=== PATIENT | female | born 1945 | race Caucasian/White ===

== ENCOUNTER → 2017-03-20 | Outpatient (CLI) | payer MEDICARE | LOC: M WHC 10:42 | DX: Z12.31 Encounter for screening mammogram for malignant neoplasm of breast (principal); Z78.0 Asymptomatic menopausal state | CPT/HCPCS: 77067 ==

== ENCOUNTER → 2017-12-31 | Outpatient (REF) | payer OTHER ==
[2017-12-31 19:38] LABS: BASO # 0.1 10^3/uL (0.0-0.2); BASO % 0.4 % (0.0-1.0); EOS # 0.1 10^3/uL (0.0-0.50); EOS % 0.8 % (0.0-3.0); HEMATOCRIT 37.2 % (36.0-47.0); HEMOGLOBIN 12.8 g/dl (12.0-15.5); IMMATURE GRANULOCYTE % 0.6 % (0-3.0); LYMPH # 2.6 10^3/uL (1.5-4.5); LYMPH % 21.1 % (24.0-44.0); MEAN CORPUSCULAR HEMOGLOBIN 32.9 pg (27.0-33.0); MEAN CORPUSCULAR HGB CONC 34.4 g/dl (32.0-36.5); MEAN CORPUSCULAR VOLUME 95.6 fl (80.0-96.0); MONO # 1.3 10^3/uL (0.0-0.8); MONO % 10.4 % (0.0-5.0); NEUTROPHILS # 8.1 10^3/uL (1.8-7.7); NEUTROPHILS % 66.7 % (36.0-66.0); PLATELET COUNT, AUTOMATED 396 10^3/uL (150-450); RED BLOOD COUNT 3.89 10^6/uL (4.00-5.40); RED CELL DISTRIBUTION WIDTH 12.7 % (11.5-14.5); WHITE BLOOD COUNT 12.1 10^3/uL (4.0-10.0)
[2017-12-31 19:41] LABS: ALBUMIN 3.1 GM/DL (3.2-5.2); ALBUMIN/GLOBULIN RATIO 1.07 (1.00-1.93); ALKALINE PHOSPHATASE 54 U/L (45-117); ALT/SGPT 15 U/L (12-78); ANION GAP 9 MEQ/L (8-16); AST/SGOT 18 U/L (7-37); BILIRUBIN,TOTAL 0.3 MG/DL (0.2-1.0); BLOOD UREA NITROGEN 5 MG/DL (7-18); CALCIUM LEVEL 8.6 MG/DL (8.8-10.2); CARBON DIOXIDE LEVEL 28 MEQ/L (21-32); CHLORIDE LEVEL 90 MEQ/L (98-107); CHOLESTEROL LEVEL 143 MG/DL (<200); CHOLESTEROL RISK RATIO 2.648 (<5); CREATININE FOR GFR 0.78 MG/DL (0.55-1.30); GLOMERULAR FILTRATION RATE > 60.0 (>39); GLUCOSE, FASTING 100 MG/DL (70-100); HDL CHOLESTEROL 54 MG/DL (>40); LDL CHOLESTEROL 71 MG/DL (<100); NON-HDL-C 89 MG/DL; POTASSIUM SERUM 3.8 MEQ/L (3.5-5.1); RHEUMATOID FACTOR QUANT 12.5 IU/ML (<15.0); SODIUM LEVEL 127 MEQ/L (136-145); TRIGLYCERIDES LEVEL 90 MG/DL (<150); URIC ACID 4.4 MG/DL (2.6-6.0)
[2017-12-31 19:43] LABS: FOLATE 9.2 NG/ML; TOTAL 25(OH) VITAMIN D 56.8 NG/ML (30.0-100.0); VITAMIN B12 LEVEL 435 PG/ML
[2017-12-31 20:04] LABS: ESTIMATED AVERAGE GLUCOSE 114 MG/DL (60-110); HEMOGLOBIN A1c 5.6 %
[2018-01-03 00:31] LABS: ANTI DOUBLE STRAND-DNA AB 1 IU/mL (0-9); ANTINUCLEAR ANTIBODIES DIRECT Positive (Negative); Lyme Disease IgG/IgM Antibodie <0.91 ISR (0.00-0.90); Lyme Disease IgM Ab Quantitati <0.80 index (0.00-0.79); RNP ANTIBODIES 1.8 AI (0.0-0.9); SJOGREN'S ANTI SS-A <0.2 AI (0.0-0.9); SJOGREN'S ANTI SS-B <0.2 AI (0.0-0.9); SMITH ANTIBODIES <0.2 AI (0.0-0.9)
== END ==
LOC: M LAB REF 18:50
DX: Z13.89 Encounter for screening for other disorder (principal); E07.9 Disorder of thyroid, unspecified; E78.00 Pure hypercholesterolemia, unspecified; R73.01 Impaired fasting glucose
CPT/HCPCS: 82746

== ENCOUNTER 2018-01-05 10:17 | Emergency (ER) | payer OTHER ==
[2018-01-05] MEDS: traMADol 50 MG TAB PO (11:11)
== END 2018-01-05 11:13 | disposition home or self-care (01) ==
LOC: M ED 10:17
DX: M17.0 Bilateral primary osteoarthritis of knee (principal); M16.11 Unilateral primary osteoarthritis, right hip; M25.551 Pain in right hip; M25.561 Pain in right knee; M25.562 Pain in left knee; I10 Essential (primary) hypertension; E03.9 Hypothyroidism, unspecified; F17.210 Nicotine dependence, cigarettes, uncomplicated; Z88.5 Allergy status to narcotic agent; Z79.899 Other long term (current) drug therapy; Z79.1 Long term (current) use of non-steroidal anti-inflammatories (NSAID)
CPT/HCPCS: 99282

== ENCOUNTER → 2018-01-21 | Outpatient (REF) | payer OTHER ==
[~2018-01-21] MED LIST: ASPI1TAB15 PO; ATEN50TA2; COLA100C5 PO; ENAL10TA2; FURO80TA2; LEVO125T4; MELO15TA28; NAPR-885; NORCOTAB PO; OMEP40CA2; OXYB5TAB10; PARO15TA; PENT10CA PO; POTA1TAB23; SIMV20TA2; THIA100T7 PO; TRAM50TA2 PO
[2018-01-21 18:01] LABS: BLOOD UREA NITROGEN 8 MG/DL (7-18); CALCIUM LEVEL 9.2 MG/DL (8.8-10.2); CARBON DIOXIDE LEVEL 33 MEQ/L (21-32); CHLORIDE LEVEL 82 MEQ/L (98-107); CREATININE FOR GFR 0.77 MG/DL (0.55-1.30); GLOMERULAR FILTRATION RATE > 60.0 (>39); GLUCOSE, FASTING 116 MG/DL (70-100); POTASSIUM SERUM 3.2 MEQ/L (3.5-5.1); SODIUM LEVEL 125 MEQ/L (136-145)
[2018-01-21 18:05] LABS: HEMATOCRIT 32.3 % (36.0-47.0); HEMOGLOBIN 11.6 g/dl (12.0-15.5); MEAN CORPUSCULAR HEMOGLOBIN 33.2 pg (27.0-33.0); MEAN CORPUSCULAR HGB CONC 35.9 g/dl (32.0-36.5); MEAN CORPUSCULAR VOLUME 92.6 fl (80.0-96.0); PLATELET COUNT, AUTOMATED 511 10^3/uL (150-450); RED BLOOD COUNT 3.49 10^6/uL (4.00-5.40); WHITE BLOOD COUNT 11.4 10^3/uL (4.0-10.0)
[2018-01-21 18:32] LABS: ERYTHROCYTE SEDIMENTATION RATE 45 mm/hr (0-30)
== END ==
LOC: M LABDRAW1 17:23
PROVIDERS: ATTEND Physician Assistant Surgical
DX: M16.11 Unilateral primary osteoarthritis, right hip (principal)

== ENCOUNTER 2018-01-23 11:18 | Emergency (ER) | payer OTHER ==
[~2018-01-23] VITALS: Ht 162.6 cm; Wt 55.0 kg
[~2018-01-23 11:18] MED LIST changes: -ASPI1TAB15 PO; -COLA100C5 PO; -NORCOTAB PO; -PENT10CA PO; -THIA100T7 PO
[2018-01-23] MEDS ORDERED: ASPI1TAB15 PO (11:30)
[2018-01-23] MEDS ORDERED: PENT10CA PO (11:30)
[2018-01-23] MEDS ORDERED: COLA100C5 PO (11:30)
[2018-01-23] MEDS ORDERED: THIAMINE HCL 200 MG/2 ML VIAL (J3411) IV ONE (12:30)
--- NOTE | 2018-01-23 12:59 | REP ---
CT Head without contrast HISTORY: Altered mental status COMPARISON: None Areas of decreased attenuation are present in the periventricular white matter. This represents small-vessel ischemic disease. There is no intraparenchymal hemorrhage, acute infarct, mass or midline shift. The ventricular system and cortical sulci are dilated consistent with mild volume loss. There is no extra cerebral collection. There is no fracture. The visualized sinuses are clear. A left ocular prosthesis is present. IMPRESSION: 1. Small vessel ischemic disease. 2. Mild volume loss. Electronically Signed by Jean Wheeler MD 01/23/2018 12:51 P
[2018-01-23 13:19] LABS: BASO % 0.3 % (0.0-1.0); EOS # 0.1 10^3/uL (0.0-0.50); EOS % 0.5 % (0.0-3.0); HEMATOCRIT 35.2 % (36.0-47.0); HEMOGLOBIN 12.4 g/dl (12.0-15.5); LYMPH # 2.3 10^3/uL (1.5-4.5); LYMPH % 19.4 % (24.0-44.0); MEAN CORPUSCULAR HEMOGLOBIN 32.5 pg (27.0-33.0); MEAN CORPUSCULAR HGB CONC 35.2 g/dl (32.0-36.5); MEAN CORPUSCULAR VOLUME 92.4 fl (80.0-96.0); MONO # 1.4 10^3/uL (0.0-0.8); MONO % 12.3 % (0.0-5.0); NEUTROPHILS # 7.8 10^3/uL (1.8-7.7); NEUTROPHILS % 66.7 % (36.0-66.0); PLATELET COUNT, AUTOMATED 482 10^3/uL (150-450); RED BLOOD COUNT 3.81 10^6/uL (4.00-5.40); WHITE BLOOD COUNT 11.7 10^3/uL (4.0-10.0)
[2018-01-23 13:19] LABS: AMPHETAMINES LEVEL URINE NEGATIVE (NEGATIVE); BARBITURATES URINE NEGATIVE (NEGATIVE); BENZODIAZEPINES URINE NEGATIVE (NEGATIVE); CANNABINOIDS URINE NEGATIVE (NEGATIVE); COCAINE METABOLITE URINE NEGATIVE (NEGATIVE); METHADONE URINE NEGATIVE (NEGATIVE); OPIATES URINE NEGATIVE (NEGATIVE); PHENCYCLIDINE URINE NEGATIVE (NEGATIVE)
--- NOTE | 2018-01-23 13:37 | REP ---
Chest two views HISTORY: Altered mental status Comparison: 11/25/2013 The lungs are clear. The heart is normal in size. The pulmonary vasculature is normal in appearance. The bony structure is intact. IMPRESSION: No acute disease. Electronically Signed by Jean Wheeler MD 01/23/2018 01:27 P
[2018-01-23 13:55] LABS: ACETAMINOPHEN LEVEL < 2.0 UG/ML (10.0-30.0); ALBUMIN 2.9 GM/DL (3.2-5.2); ALT/SGPT 18 U/L (12-78); BILIRUBIN,DIRECT 0.2 MG/DL (0.0-0.2); BILIRUBIN,TOTAL 0.5 MG/DL (0.2-1.0); BLOOD UREA NITROGEN 6 MG/DL (7-18); CALCIUM LEVEL 9.2 MG/DL (8.8-10.2); CARBON DIOXIDE LEVEL 34 MEQ/L (21-32); CHLORIDE LEVEL 84 MEQ/L (98-107); CPK CREATINE PHOSPHOKINASE 575 U/L (26-192); CREATININE FOR GFR 0.57 MG/DL (0.55-1.30); ETHYL ALCOHOL (ETHANOL) 0.003 % (0.000-0.010); GLOMERULAR FILTRATION RATE > 60.0 (>39); GLUCOSE, FASTING 87 MG/DL (70-100); POTASSIUM SERUM 2.9 MEQ/L (3.5-5.1); SALICYLATE LEVEL 2.3 MG/DL (5.0-30.0); SODIUM LEVEL 128 MEQ/L (136-145); TOTAL PROTEIN 6.2 GM/DL (6.4-8.2); TROPONIN I < 0.02 NG/ML (< 0.10)
[2018-01-23 14:22] LABS: OSMOLALITY SERUM 260 MOSM/KG (280-301)
[2018-01-23 14:31] LABS: MAGNESIUM LEVEL 1.6 MG/DL (1.8-2.4)
[2018-01-23] MEDS ORDERED: KETOROLAC 30 MG/ML VIAL (J1885) IV ONE (15:15)
[2018-01-23] MEDS ORDERED: THIA100T7 PO (15:16)
[2018-01-23] MEDS ORDERED: MAG SULF 1GM/100ML (MAG RUN) 1 GM in APPROPRIATE DILUENT 1 EA IV ONE (15:30)
[2018-01-23] MEDS ORDERED: POTASSIUM CHLORIDE 10 MEQ SR TABLET PO ONE (15:30)
[2018-01-23 16:45] VITALS: BP 150/69
--- NOTE | 2018-01-24 09:20 | ECGEPIP ---
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
[2018-01-25] MEDS ORDERED: NORCOTAB PO (14:41)
== END 2018-01-23 17:01 | disposition home or self-care (01) ==
LOC: M ED 11:18
DX: R44.1 Visual hallucinations (principal); E87.6 Hypokalemia; E83.42 Hypomagnesemia; R41.82 Altered mental status, unspecified; I10 Essential (primary) hypertension; E03.9 Hypothyroidism, unspecified; K21.9 Gastro-esophageal reflux disease without esophagitis; E78.5 Hyperlipidemia, unspecified; K58.9 Irritable bowel syndrome, unspecified; F41.9 Anxiety disorder, unspecified; M16.11 Unilateral primary osteoarthritis, right hip; Z85.848 Personal history of malignant neoplasm of other parts of nervous tissue; Z90.01 Acquired absence of eye; Z72.0 Tobacco use; Z79.82 Long term (current) use of aspirin; Z79.899 Other long term (current) drug therapy; Z88.5 Allergy status to narcotic agent
CPT/HCPCS: 70450; 71046; 80048; 80076; 80307; 81001; 82140; 82550; 82553; 83735; 83930; 84443; 84484; 85025; 87040; 87086; 93005; 93041; 96374; 96375; 99285; G0480; J1885; J3411; J3475

== ENCOUNTER → 2018-01-23 | Outpatient (REF) | payer OTHER ==
[2018-01-24 12:58] LABS: APPEARANCE, URINE CLEAR (CLEAR); BACTERIA, URINE AUTO NEGATIVE (NEGATIVE); BILIRUBIN, URINE AUTO NEGATIVE (NEGATIVE); BLOOD, URINE BLOOD NEGATIVE (NEGATIVE); COLOR, URINE YELLOW (YELLOW); GLUCOSE, URINE (UA) AUTO NEGATIVE (NEGATIVE); KETONE, URINE AUTO NEGATIVE (NEGATIVE); LEUKOCYTE ESTERASE, URINE AUTO NEGATIVE (NEGATIVE); NITRITE, URINE AUTO NEGATIVE (NEGATIVE); PROTEIN, URINE AUTO NEGATIVE (NEGATIVE); RBC, URINE AUTO 0 /HPF (0-3); SPECIFIC GRAVITY URINE AUTO 1.003 (1.002-1.035); SQUAMOUS EPITHELIAL CELL UR AU 0 /HPF (0-6); UROBILINOGEN, URINE AUTO 0.2 mg/dL (0.0-2.0); WBC, URINE AUTO 1 /HPF (0-3)
== END ==
LOC: M LAB REF 12:27
DX: R41.82 Altered mental status, unspecified (principal)

== ENCOUNTER 2018-01-25 12:30 | Emergency (ER) | payer OTHER ==
[2018-01-25] MEDS: NORCO, ANEXSIA 5/325MG TABLET (HYDROcodone/ACETAMINOPHEN) PO (13:13)
== END 2018-01-25 15:07 | disposition home or self-care (01) ==
LOC: M ED 12:30
DX: G89.29 Other chronic pain (principal); M25.551 Pain in right hip; M16.12 Unilateral primary osteoarthritis, left hip; I10 Essential (primary) hypertension; Z72.0 Tobacco use; Z79.82 Long term (current) use of aspirin; Z79.899 Other long term (current) drug therapy; Z88.5 Allergy status to narcotic agent
CPT/HCPCS: 73502

== ENCOUNTER 2018-02-15 12:59 | Inpatient (IN) | payer MEDICARE, OTHER ==
[~2018-02-15] VITALS: Ht 162.6 cm; Wt 80.1 kg
[~2018-02-15 12:59] MED LIST changes: +ASPI1TAB15 PO; +COLA100C5 PO; +NORCOTAB PO; +PENT10CA PO; +THIA100T7 PO
[2018-02-15] MEDS ORDERED: MORPHINE 10 MG/ML 1ML VIAL (J2270) IM ONE (14:15)
--- NOTE | 2018-02-15 15:31 | REP ---
LEFT ELBOW, FOUR VIEWS: HISTORY: Fall. There is no acute fracture or dislocation. The joint space is normal in appearance. IMPRESSION: There is no acute fracture or dislocation. Electronically Signed by Jean Wheeler MD 02/15/2018 03:33 P
--- NOTE | 2018-02-15 15:36 | REP ---
AP PELVIS WITH RIGHT HIP: 02/15/2018. Clinical history: Chronic right hip pain. Known severe chronic changes. [place] a "pop" yesterday. States no trauma since the previous study. Comparison: 01/25/2018. Findings: AP pelvis shows the pelvic ring intact. There are degenerative changes at the symphysis pubis which are stable. Pubic rami intact. SI joints with some sclerosis but no asymmetry or erosion. No fractures of the iliac wings nor any definite acetabular fracture. Left hip unremarkable. Right hip: Only the AP coned-down view could be performed as well as the AP pelvis due to patient condition. The collapse of the right femoral head is again noted with some bony debris in the hip and superior subluxation of the hip with pseudoarticulation of the superior aspect of the femoral neck with the superior acetabulum. However, there is now a linear lucency vertically oriented in the right femoral neck which was not present last month and this suggests fracturing of that femoral neck although not definitely acute. It has very smooth margins. I do not see other significant or new findings. Impression: 1. Previously noted severe collapsed femoral head with superior subluxation and pseudoarticulation of the more superior aspect of the femoral neck with the superior lateral acetabular margin. No marika dislocation. A new fracture line in the right femoral neck is suggested compared to the study from 01/25/2018. Electronically Signed by Alexandro Lacey MD 02/15/2018 05:04 P
[2018-02-15] MEDS ORDERED: VITA500T PO (16:43)
[2018-02-15] MEDS ORDERED: OXYB5TAB PO (16:43)
[2018-02-15] MEDS ORDERED: NAPR-885 PO (16:43)
[2018-02-15] MEDS ORDERED: LEVO125T4 PO (16:43)
[2018-02-15] MEDS ORDERED: FURO80TA2 PO (16:43)
[2018-02-15] MEDS ORDERED: SALI0.652 NARES (16:43)
[2018-02-15] MEDS ORDERED: ATEN50TA2 PO (16:43)
[2018-02-15] MEDS ORDERED: ASPI81TA85 PO (16:43)
[2018-02-15] MEDS ORDERED: POTA1TAB23 PO (16:43)
[2018-02-15] MEDS ORDERED: SYST1SOL OD (16:43)
[2018-02-15] MEDS ORDERED: PARO30TA3 PO (16:43)
[2018-02-15] MEDS ORDERED: SIMV40TA2 PO (16:43)
[2018-02-15] MEDS ORDERED: DIPH25CA PO (16:43)
[2018-02-15] MEDS ORDERED: OMEP40CA2 PO (16:43)
[2018-02-15] MEDS ORDERED: VITA200016 PO (16:43)
[2018-02-15] MEDS ORDERED: ENAL10TA2 PO (16:43)
[2018-02-15] MEDS ORDERED: MORPHINE 4 MG/ML 1ML VIAL/SYRINGE (J2270) IV PRN (16:45)
[2018-02-15 18:21] LABS: BASO % 0.3 % (0.0-1.0); EOS # 0.1 10^3/uL (0.0-0.50); HEMATOCRIT 33.2 % (36.0-47.0); HEMOGLOBIN 11.9 g/dl (12.0-15.5); LYMPH # 2.6 10^3/uL (1.5-4.5); MEAN CORPUSCULAR HEMOGLOBIN 32.6 pg (27.0-33.0); MEAN CORPUSCULAR HGB CONC 35.8 g/dl (32.0-36.5); MONO # 1.1 10^3/uL (0.0-0.8); MONO % 8.7 % (0.0-5.0); NEUTROPHILS # 8.6 10^3/uL (1.8-7.7); NEUTROPHILS % 68.4 % (36.0-66.0); PLATELET COUNT, AUTOMATED 425 10^3/uL (150-450); RED BLOOD COUNT 3.65 10^6/uL (4.00-5.40); WHITE BLOOD COUNT 12.6 10^3/uL (4.0-10.0)
[2018-02-15 18:59] LABS: ALBUMIN 2.7 GM/DL (3.2-5.2); ALT/SGPT 11 U/L (12-78); BILIRUBIN,TOTAL 0.5 MG/DL (0.2-1.0); BLOOD UREA NITROGEN 5 MG/DL (7-18); CALCIUM LEVEL 9.1 MG/DL (8.8-10.2); CARBON DIOXIDE LEVEL 30 MEQ/L (21-32); CHLORIDE LEVEL 82 MEQ/L (98-107); FREE THYROXINE INDEX 3.6 % (1.3-4.8); GLOMERULAR FILTRATION RATE > 60.0 (>39); GLUCOSE, FASTING 88 MG/DL (70-100); MAGNESIUM LEVEL 1.7 MG/DL (1.8-2.4); POTASSIUM SERUM 3.7 MEQ/L (3.5-5.1); SODIUM LEVEL 121 MEQ/L (136-145); T UPTAKE 39 % (30-39); THYROXINE (T4) 9.2 UG/DL (4.5-12.0); TOTAL PROTEIN 5.5 GM/DL (6.4-8.2)
--- NOTE | 2018-02-15 19:29 | REP ---
Chest x-ray: Two views. History: Tobacco use. Comparison study: January 23, 2018. Findings: There is mild linear fibrosis in the left base. This is unchanged. Lungs are otherwise well inflated and clear. Heart is not enlarged. The aorta is calcific and slightly tortuous. Pulmonary vasculature is not increased. Pleural angles are sharp. There are degenerative changes in the thoracic spine. Impression: No active disease. Electronically Signed by Ivan Balderrama MD 02/15/2018 07:21 P
[2018-02-15] MEDS: ACETAMINOPHEN TAB 650MG DOSE (2X325MG) PO PRN (19:44)
[2018-02-15 20:10] VITALS: BP 147/86
[2018-02-15] MEDS ORDERED: NS 1,000 ML IV SCH (20:45)
[2018-02-15] MEDS ORDERED: MAG SULF 1GM/100ML (MAG RUN) 1 GM in APPROPRIATE DILUENT 1 EA IV ONE (20:45)
[2018-02-15] MEDS ORDERED: NORCO, ANEXSIA 5/325MG TABLET (HYDROcodone/ACETAMINOPHEN) PO ONE (21:15)
[2018-02-15] MEDS: SENOKOT S TAB PO SCH (21:27)
[2018-02-15] MEDS: SIMVASTATIN 40 MG TAB PO SCH (21:29)
[2018-02-15] MEDS: NICOTINE 14 MG/24 HR TRANSDERMAL TD SCH (23:26)
[2018-02-16] MEDS ORDERED: NORCO, ANEXSIA 5/325MG TABLET (HYDROcodone/ACETAMINOPHEN) PO PRN (01:15)
[2018-02-16 01:29] LABS: BLOOD UREA NITROGEN 5 MG/DL (7-18); CALCIUM LEVEL 8.9 MG/DL (8.8-10.2); CARBON DIOXIDE LEVEL 30 MEQ/L (21-32); CHLORIDE LEVEL 85 MEQ/L (98-107); CREATININE FOR GFR 0.62 MG/DL (0.55-1.30); GLOMERULAR FILTRATION RATE > 60.0 (>39); GLUCOSE, FASTING 89 MG/DL (70-100); POTASSIUM SERUM 3.3 MEQ/L (3.5-5.1); SODIUM LEVEL 123 MEQ/L (136-145)
[2018-02-16 02:00] VITALS: BP 163/81
[2018-02-16] MEDS ORDERED: NS 1,000 ML IV SCH (02:00)
[2018-02-16 02:30] LABS: APPEARANCE, URINE CLEAR (CLEAR); BACTERIA, URINE AUTO NEGATIVE (NEGATIVE); BILIRUBIN, URINE AUTO NEGATIVE (NEGATIVE); BLOOD, URINE BLOOD NEGATIVE (NEGATIVE); COLOR, URINE STRAW (YELLOW); GLUCOSE, URINE (UA) AUTO NEGATIVE (NEGATIVE); KETONE, URINE AUTO NEGATIVE (NEGATIVE); LEUKOCYTE ESTERASE, URINE AUTO NEGATIVE (NEGATIVE); NITRITE, URINE AUTO NEGATIVE (NEGATIVE); PROTEIN, URINE AUTO NEGATIVE (NEGATIVE); RBC, URINE AUTO 0 /HPF (0-3); SPECIFIC GRAVITY URINE AUTO 1.001 (1.002-1.035); SQUAMOUS EPITHELIAL CELL UR AU 0 /HPF (0-6); UROBILINOGEN, URINE AUTO 0.2 mg/dL (0.0-2.0); WBC, URINE AUTO 1 /HPF (0-3)
[2018-02-16] MEDS ORDERED: POTASSIUM CHLORIDE 10 MEQ SR TABLET PO ONE ×2 (05:15→09:00)
[2018-02-16] MEDS ORDERED: KCL 20MEQ in NS 1000ML 1,000 ML IV SCH (05:15)
[2018-02-16 06:00] VITALS: BP 153/76
[2018-02-16] MEDS ORDERED: LEVOTHYROXINE 125MCG TABLET (0.125MG) PO SCH (06:00)
[2018-02-16 07:05] LABS: ALBUMIN 2.3 GM/DL (3.2-5.2); ALT/SGPT 11 U/L (12-78); BILIRUBIN,TOTAL 0.5 MG/DL (0.2-1.0); BLOOD UREA NITROGEN 7 MG/DL (7-18); CALCIUM LEVEL 9.5 MG/DL (8.8-10.2); CARBON DIOXIDE LEVEL 30 MEQ/L (21-32); CHLORIDE LEVEL 89 MEQ/L (98-107); CREATININE FOR GFR 0.65 MG/DL (0.55-1.30); GLOMERULAR FILTRATION RATE > 60.0 (>39); GLUCOSE, FASTING 78 MG/DL (70-100); MAGNESIUM LEVEL 2.2 MG/DL (1.8-2.4); POTASSIUM SERUM 3.4 MEQ/L (3.5-5.1); SODIUM LEVEL 127 MEQ/L (136-145); TOTAL PROTEIN 5.7 GM/DL (6.4-8.2)
[2018-02-16] MEDS: POLYVINYL ALCOHOL OPHTH SOLN 15 ML(LIQUITEARS) OD SCH (09:00)
[2018-02-16] MEDS ORDERED: ENALAPRIL MALEATE 10 MG TAB PO SCH (09:00)
[2018-02-16] MEDS ORDERED: FUROSEMIDE 80 MG TAB PO SCH (09:00)
[2018-02-16] MEDS ORDERED: POTASSIUM CHLORIDE 10 MEQ SR TABLET PO SCH (09:00)
--- NOTE | 2018-02-16 09:25 | HPE ---
DATE OF ADMISSION: 02/15/2018 CHIEF COMPLAINT: Right hip pain and chronic long-term avascular necrosis and collapse. HISTORY OF PRESENT ILLNESS: This 72-year-old female presented to the hospital with chronic pain in her right hip and inability to cope at home. Apparently, she was seeing Dr. Richter related to avascular necrosis (AVN) and femoral head collapse on the right side. This is going on for months and potentially years. She describes the pain as being lateral and posterior in her hip and with difficulty ambulating. Normally, she walks with a walker, but mostly she gets around, it sounds like, with a wheelchair according to her. When I did speak to her, she was quite confused, repeating the same questions and asking the same questions over and over. Apparently, the plan from Dr. Richter was to obtain an MRI of her right hip to rule out infection. However, she tried to have that done a few days ago, but she was unable to lay still for this due to her anxiety or pain; it is not really clear. PAST MEDICAL HISTORY: Hypokalemia. Hypomagnesemia. Right hip pain and AVN of the femur on the right side. MEDICATIONS: - acetaminophen - vitamin C - atenolol - diphenhydramine - enoxaparin sodium - furosemide/Lasix - hydrocodone/acetaminophen - morphine sulfate - nicotine - omeprazole - oxybutynin - paroxetine - potassium chloride - senna/docusate - simvastatin - vitamin D ALLERGIES: To TRAMADOL. SURGICAL HISTORY: Esophagogastroduodenoscopy (EGD) with closed biopsy. Endoscopic polypectomy of large intestine. SOCIAL HISTORY: She apparently lives with her , who is also disabled, so they rely heavily on each other. She walks normally with a walker or uses a wheelchair. PHYSICAL EXAMINATION: On examination, this is a 72-year-old female in mild distress. We had to hike her up in the bed and sit her up. She had a number of questions and kept repeating herself. She is quite confused. Vital signs: 97.8 temperature, blood pressure 153/76, mean arterial pressure (MAP) 101, 97% on room air, respiratory rate 20, pulse 98. Inspection of the right hip reveals no overlying swelling, redness, or obvious deformity. Examination distally revealed normal sensation throughout the foot in the superficial and deep peroneal nerves, as well as saphenous, tibial, and sural. Good pedal pulses. Well perfused foot. Definitely had pain with internal and external rotation on logrolling of the hip but no pain at the knee or ankle. Radiographs were reviewed from a month prior, as well as upon presentation to the emergency department last night. This shows chronic AVN and collapse of the right femoral head. It is nearly completely collapsed and gone. At this point, the femoral neck is articulated with the acetabulum. There may be a new small undisplaced fracture line at the femoral neck, but overall it remains the same problem as a month ago. BLOOD WORK: WBC 12.6, hemoglobin 11.9. Sodium 127, potassium 3.4, chloride 89, GFR over 60. Her urine was negative. ASSESSMENT AND PLAN: This is a 72-year-old female with chronic long-term AVN and collapse of her right femoral head. Will likely at some point need a total hip arthroplasty. I am not sure we should be rushing into this, given the fact that Dr. Richter was working this up for infection. I still do agree with his plan to obtain advanced imaging, likely in the form of an MRI would be the best to see if there is any evidence of infection of the right hip or some cause of the AVN before proceeding with surgical intervention. Likely this will be done in 2 days, hopefully. So, in the meantime, we will place her on deep venous thrombosis (DVT) prophylaxis and achieve pain control with the help of the hospitalists. I have communicated these things to Dr. Richter, who is her normal orthopedic surgeon, and we will see how things go over the weekend.
[2018-02-16] MEDS: OMEPRAZOLE 20 MG CAP PO SCH (09:36)
[2018-02-16] MEDS: diphenhydrAMINE 25 MG CAP PO SCH (09:36)
[2018-02-16] MEDS: ASCORBIC ACID 500 MG TAB PO SCH (09:36)
[2018-02-16] MEDS: VITAMIN D 1,000 INTERNATIONAL UNITS TABLET PO SCH (09:36)
[2018-02-16] MEDS: oxyBUTYnin *DITROPAN XL* 5 MG TABCR PO SCH (09:36)
[2018-02-16] MEDS: SENOKOT S TAB PO SCH ×2 (09:36→20:36)
[2018-02-16] MEDS: ATENOLOL 50 MG TAB PO SCH (09:37)
[2018-02-16] MEDS: PARoxetine 10MG TABLET PO SCH (09:37)
[2018-02-16] MEDS: ENOXAPARIN 40 MG/0.4 ML SYRINGE (J1650) SC SCH (09:37)
[2018-02-16 10:00] VITALS: BP 136/63
[2018-02-16 13:01] LABS: BLOOD UREA NITROGEN 6 MG/DL (7-18); CALCIUM LEVEL 9.1 MG/DL (8.8-10.2); CARBON DIOXIDE LEVEL 29 MEQ/L (21-32); CHLORIDE LEVEL 97 MEQ/L (98-107); CREATININE FOR GFR 0.61 MG/DL (0.55-1.30); GLOMERULAR FILTRATION RATE > 60.0 (>39); GLUCOSE, FASTING 117 MG/DL (70-100); POTASSIUM SERUM 4.2 MEQ/L (3.5-5.1); SODIUM LEVEL 136 MEQ/L (136-145)
[2018-02-16 14:00] VITALS: BP 116/55
[2018-02-16] MEDS ORDERED: D5W 1,000 ML IV ONE (16:00)
--- NOTE | 2018-02-16 16:31 | IPNPDOC ---
Text Note Date of Service The patient was seen on 02/16/18. NOTE Subjective: Pt feels well today. Hip pain controlled. Worse with movement. No radiculopathy or alarming signs. Objective: Vitals: (see below) General: No acute distress, laying comfortably in bed. HEENT: Moist mucous membranes. Neck: No JVD or lymphadenopathy Cardiac: RRR, No murmurs Pulm: Clear to auscultation b/l. No wheezing, rhonchi Abd: NT/ND + BS Ext: Trace to 1+ pitting edema BLE. No cyanosis. Pain with movement of right hip, however strength intact. distal pulses intact. Labs (see below) Images: X ray hip 02/16/18 Impression: 1. Previously noted severe collapsed femoral head with superior subluxation and pseudoarticulation of the more superior aspect of the femoral neck with the superior lateral acetabular margin. No marika dislocation. A new fracture line in the right femoral neck is suggested compared to the study from 01/25/2018. Assessment/Plan 1. Hip pain with ? Fx. - Management per ortho, with plan for MRI and possible surg. ?AVN. Pain management per ortho. 2. Chronic LE edema - on lasix. 3. HLD on statin. 4. Chronic Hyponatremia- patient is received normal saline with elevation of Na. Given D5, hold lasix. No changes in mentation. No focal deficits. 5. Leukocytosis. Likely reactive. No signs of infection. Afebrile. Continue to monitor. DVT prophy: per ortho. VS,Fishbone, I+O VS, Fishbone, I+O Laboratory Tests 02/15/18 18:09 Red Blood Count 3.65 L, Mean Corpuscular Volume 91.0, Mean Corpuscular Hemoglobin 32.6, Mean Corpuscular Hemoglobin Concent 35.8, Red Cell Distribution Width 12.3, Neutrophils (%) (Auto) 68.4 H, Lymphocytes (%) (Auto) 21.0 L, Monocytes (%) (Auto) 8.7 H, Eosinophils (%) (Auto) 1.0, Basophils (%) (Auto) 0.3, Neutrophils # (Auto) 8.6 H, Lymphocytes # (Auto) 2.6, Monocytes # (Auto) 1.1 H, Eosinophils # (Auto) 0.1, Basophils # (Auto) 0.0, Calcium Level 9.1, Aspartate Amino Transf (AST/SGOT) 15, Alanine Aminotransferase (ALT/SGPT) 11 L, Alkaline Phosphatase 63, Total Bilirubin 0.5, Total Protein 5.5 L, Albumin 2.7 L 02/16/18 00:50 Calcium Level 8.9 02/16/18 05:31 Calcium Level 9.5, Aspartate Amino Transf (AST/SGOT) 16, Alanine Aminotransferase (ALT/SGPT) 11 L, Alkaline Phosphatase 63, Total Bilirubin 0.5, Total Protein 5.7 L, Albumin 2.3 L 02/16/18 12:15 Calcium Level 9.1 Vital Signs Date Time Temp Pulse Resp B/P (MAP) Pulse Ox O2 Delivery O2 Flow Rate FiO2 02/16/18 14:00 98.8 95 18 116/55 (75) 96 Room Air I&O- Last 24 Hours up to 6 AM 02/16/18 06:00 Intake Total 1220 ml Output Total 3050 ml Balance -1830 ml MARGUERITE MAYNARD MD Feb 16, 2018 16:31
[2018-02-16] MEDS ORDERED: SODIUM CHLORIDE NASAL 0.65% SPRAY BTL (OCEAN) PRN (18:15)
--- NOTE | 2018-02-16 18:15 | HPE ---
DATE OF ADMISSION: 02/15/2018 HISTORY OF PRESENT ILLNESS: This is a 72-year-old female with a history of arthritis and severe hip pain. She follows with Dr. Richter at [facility]. She was to have an MRI to update the status of her hip due to having increasing pain as an outpatient. She went, but was unable to tolerate. The pain got worse. She heard a pop in her hip and came to the emergency room. In the emergency room, she was complaining of intractable right hip pain and left elbow pain. Hip x-ray showed previously noted severe collapsed femoral head and a possibility of a new fracture line in the right femoral neck suggested, compared to the study from 01/25/2018. Patient was medicated with morphine for her pain with some relief. Elbow x-ray was negative. Discussion with Dr. Morejon, from [facility], requests that we admit the patient for pain control and orthopedics were consulted to see what further could possibly be done for the hip. Patient will be admitted to the service of Dr. Mejias. Consult with orthopedics will be placed. Will obtain complete blood count (CBC), complete metabolic panel (CMP), baseline chest x-ray, EKG, deep venous thrombosis (DVT) prophylaxis, and admit patient to the medical/surgical floor. ALLERGIES: TRAMADOL. PRIMARY CARE PROVIDER: [facility]. She sees Marcia Landon, Family Nurse Practitioner. SOCIAL HISTORY: She is . She does not drink alcohol. She smokes approximately cigarettes per day. Recreational drug use: None. PAST MEDICAL HISTORY: 1. Hypertension. 2. Hypercholesterolemia. 3. Hypothyroidism. 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 PAST SURGICAL HISTORY: 1. Hysterectomy. 2. Tonsillectomy. 3. Surgery age 10 months, removed her left eye; she has a prosthetic left eye. FAMILY HISTORY: Noncontributory. An 11-system review was done and her main complaint was of the left hip pain, which has continued to get worse. PHYSICAL EXAMINATION: A 72-year-old cooperative female complaining of right hip pain. Blood pressure 142/69, pulse 100, respirations 18, temperature 96.4, oxygen saturation 100% on room air. Patient is alert and oriented times three. Pupils equal and react to light. Extraocular movements intact. Cornea and sclerae clear. Conjunctivae normal. Facial asymmetry. Pharynx, tongue, gums pink and moist. Tongue is midline. Neck is supple without lymphadenopathy. No thyromegaly. No goiter. Carotids 2+ without bruit. CHEST: Clear to auscultation without wheeze or retraction. HEART: Regular. ABDOMEN: Benign. Bowel sounds are positive. GENITOURINARY ()/RECTAL: Not done. EXTREMITIES: Show equal strength. Full range of motion. No clubbing, cyanosis or edema. Peripheral pulses equal and palpable bilaterally. SKIN: Warm and dry. IMPRESSION/PLAN: 1. Admit to the medical/surgical floor. 2. Avascular necrosis (AVN) of the femur with intractable right hip pain to the service of hospitalist, Dr. Mejias. 3. Consult Dr. Morejon. 4. Obtain a CBC, CMP, baseline EKG, chest x-ray. 5. Address until further assessed by orthopedics. 6. Deep venous thrombosis (DVT) prophylaxis Lovenox. 7. History of hypertension. Continue Lasix and atenolol. 8. Patient is complaining of severe hip pain. Will start with morphine for pain control. She is allergic to tramadol. 9. History of overactive bladder. Continue Ditropan. 10. History of gastroesophageal reflux disease (GERD). Continue Prilosec.
[2018-02-16 18:58] LABS: BLOOD UREA NITROGEN 7 MG/DL (7-18); CALCIUM LEVEL 8.9 MG/DL (8.8-10.2); CARBON DIOXIDE LEVEL 32 MEQ/L (21-32); CHLORIDE LEVEL 95 MEQ/L (98-107); CREATININE FOR GFR 0.66 MG/DL (0.55-1.30); GLOMERULAR FILTRATION RATE > 60.0 (>39); GLUCOSE, FASTING 89 MG/DL (70-100); POTASSIUM SERUM 4.3 MEQ/L (3.5-5.1); SODIUM LEVEL 133 MEQ/L (136-145)
[2018-02-16] MEDS: NICOTINE 14 MG/24 HR TRANSDERMAL TD SCH (20:36)
[2018-02-16] MEDS: SIMVASTATIN 40 MG TAB PO SCH (20:36)
[2018-02-16 22:00] VITALS: BP 122/66
[2018-02-17] MEDS: ACETAMINOPHEN TAB 650MG DOSE (2X325MG) PO PRN ×3 (05:40→20:57)
[2018-02-17 05:57] LABS: BASO # 0.1 10^3/uL (0.0-0.2); BASO % 0.5 % (0.0-1.0); EOS # 0.1 10^3/uL (0.0-0.50); EOS % 1.1 % (0.0-3.0); HEMATOCRIT 30.4 % (36.0-47.0); HEMOGLOBIN 10.3 g/dl (12.0-15.5); LYMPH # 2.3 10^3/uL (1.5-4.5); LYMPH % 22.7 % (24.0-44.0); MEAN CORPUSCULAR HEMOGLOBIN 31.8 pg (27.0-33.0); MEAN CORPUSCULAR HGB CONC 33.9 g/dl (32.0-36.5); MEAN CORPUSCULAR VOLUME 93.8 fl (80.0-96.0); MONO # 1.2 10^3/uL (0.0-0.8); MONO % 11.9 % (0.0-5.0); NEUTROPHILS # 6.4 10^3/uL (1.8-7.7); NEUTROPHILS % 63.5 % (36.0-66.0); PLATELET COUNT, AUTOMATED 398 10^3/uL (150-450); RED BLOOD COUNT 3.24 10^6/uL (4.00-5.40); WHITE BLOOD COUNT 10.1 10^3/uL (4.0-10.0)
[2018-02-17 06:00] VITALS: BP 148/69
[2018-02-17 06:16] LABS: MAGNESIUM LEVEL 1.9 MG/DL (1.8-2.4)
[2018-02-17 06:25] LABS: ALBUMIN 2.1 GM/DL (3.2-5.2); ALT/SGPT 8 U/L (12-78); BILIRUBIN,TOTAL 0.3 MG/DL (0.2-1.0); BLOOD UREA NITROGEN 5 MG/DL (7-18); CARBON DIOXIDE LEVEL 31 MEQ/L (21-32); CHLORIDE LEVEL 98 MEQ/L (98-107); GLOMERULAR FILTRATION RATE > 60.0 (>39); GLUCOSE, FASTING 82 MG/DL (70-100); POTASSIUM SERUM 3.2 MEQ/L (3.5-5.1); SODIUM LEVEL 136 MEQ/L (136-145); TOTAL PROTEIN 5.2 GM/DL (6.4-8.2)
[2018-02-17] MEDS ORDERED: POTASSIUM CHLORIDE 10 MEQ SR TABLET PO ONE (08:15)
[2018-02-17] MEDS ORDERED: D5W 1,000 ML IV ONE (08:15)
[2018-02-17 08:25] LABS: C REACTIVE PROTEIN QUANTITATIV 2.44 MG/DL (0.00-0.30)
[2018-02-17] MEDS: OMEPRAZOLE 20 MG CAP PO SCH (08:45)
[2018-02-17] MEDS: SENOKOT S TAB PO SCH ×2 (08:45→20:58)
[2018-02-17] MEDS: PARoxetine 10MG TABLET PO SCH (08:45)
[2018-02-17] MEDS: ATENOLOL 50 MG TAB PO SCH (08:45)
[2018-02-17] MEDS: diphenhydrAMINE 25 MG CAP PO SCH (08:45)
[2018-02-17] MEDS: oxyBUTYnin *DITROPAN XL* 5 MG TABCR PO SCH (08:45)
[2018-02-17] MEDS: ASCORBIC ACID 500 MG TAB PO SCH (08:45)
[2018-02-17] MEDS: VITAMIN D 1,000 INTERNATIONAL UNITS TABLET PO SCH (08:45)
[2018-02-17] MEDS: ENOXAPARIN 40 MG/0.4 ML SYRINGE (J1650) SC SCH (08:46)
--- NOTE | 2018-02-17 09:01 | IPN ---
DATE: 02/17/2018 CHIEF COMPLAINT: Chronic avascular necrosis and femoral head collapse of right hip. HISTORY OF PRESENT ILLNESS: This 72-year-old female seen this morning in followup of her right hip avascular necrosis. This was previously seen by Dr. Richter as an outpatient and being worked up. She apparently was supposed to have an MRI of her right hip to rule in or out an infectious cause of this on , three days ago, but she was not able to tolerate this due to pain and movement. As such she represented to the hospital for increasing pain in her right hip. She does try to ambulate with this poorly functioning hip with either a walker or is in a wheelchair most of the time. She lives at home with her who is also disabled and this is a difficult social situation. This morning, she seems much more awake and alert. She answers my questions appropriately. Seems less confused. Is comfortable. PHYSICAL EXAMINATION: VITAL SIGNS: Temperature 99.0. Blood pressure 148/69, mean arterial pressure (MAP) 95. Pulse rate 97. Respiratory rate 18. 93% on room air. GENERAL: Overall appearance is well-nourished 72-year-old female. She is in no acute distress. She is alert and oriented times three. Examination of her right hip and inspection: There is no obvious overlying redness, swelling, deformity or masses. Palpation revealed minimal pain about the hip and gluteal muscles. Normal sensation throughout the foot including the superficial and deep peritoneal nerves as well as saphenous nerve and tibial. She had good pedal pulses. She is able to wiggle her toes in dorsiflexion and plantar flex her foot. ASSESSMENT AND PLAN: This 72-year-old female with avascular necrosis (AVN) and quite severe collapse of her right hip. We will try again to obtain the MRI tomorrow on an inpatient basis. She seems much more comfortable and probably able to tolerate this. We will obtain this with contrast to rule in or out any kind of intraarticular hip effusion or extraarticular fluid collection. This can also help us establish differential for why she is having the AVN. Regardless, I think that the best treatment eventually will be a hemiarthroplasty or a total hip. More likely a total hip would be beneficial to her in the long run. For now we will keep her on bed rest with venous thromboembolism (VTE) prophylaxis while she is in the hospital and minimally ambulatory.
[2018-02-17 10:00] VITALS: BP 126/62
[2018-02-17] MEDS: POLYVINYL ALCOHOL OPHTH SOLN 15 ML(LIQUITEARS) OD SCH (11:33)
--- NOTE | 2018-02-17 11:33 | IPNPDOC ---
Text Note Date of Service The patient was seen on 02/17/18. NOTE Subjective: Hip pain controlled. No radiculopathy or alarming signs. Objective: Vitals: (see below) General: No acute distress, laying comfortably in bed. HEENT: Moist mucous membranes. Neck: No JVD or lymphadenopathy Cardiac: RRR, No murmurs Pulm: Clear to auscultation b/l. No wheezing, rhonchi Abd: NT/ND + BS Ext: Trace to 1+ pitting edema BLE. No cyanosis. Pain with movement of right hip, however strength intact. distal pulses intact. Labs (see below) Images: X ray hip 02/16/18 Impression: 1. Previously noted severe collapsed femoral head with superior subluxation and pseudoarticulation of the more superior aspect of the femoral neck with the superior lateral acetabular margin. No marika dislocation. A new fracture line in the right femoral neck is suggested compared to the study from 01/25/2018. Assessment/Plan 1. Hip pain with ? Fx. - Management per ortho, with plan for MRI and possible surg. ?AVN. Pain management per ortho. 2. Chronic LE edema - on lasix. 3. HLD on statin. 4. Chronic Hyponatremia- s/p NS and D5, hold lasix. No changes in mentation. No focal deficits. Discussed with Dr. 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 No need for D5. . 5. Leukocytosis. Likely reactive. No signs of infection. Afebrile. Continue to monitor. DVT prophy: per ortho. VS,Fishbone, I+O VS, Fishbone, I+O Laboratory Tests 02/16/18 12:15 Calcium Level 9.1 02/16/18 17:55 Calcium Level 8.9 02/17/18 05:13 Calcium Level 9.0, Red Blood Count 3.24 L, Mean Corpuscular Volume 93.8, Mean Corpuscular Hemoglobin 31.8, Mean Corpuscular Hemoglobin Concent 33.9, Red Cell Distribution Width 12.6, Neutrophils (%) (Auto) 63.5, Lymphocytes (%) (Auto) 22.7 L, Monocytes (%) (Auto) 11.9 H, Eosinophils (%) (Auto) 1.1, Basophils (%) (Auto) 0.5, Neutrophils # (Auto) 6.4, Lymphocytes # (Auto) 2.3, Monocytes # (Auto) 1.2 H, Eosinophils # (Auto) 0.1, Basophils # (Auto) 0.1, Aspartate Amino Transf (AST/SGOT) 12, Alanine Aminotransferase (ALT/SGPT) 8 L, Alkaline Phosphatase 52, Total Bilirubin 0.3, Total Protein 5.2 L, Albumin 2.1 L Vital Signs Date Time Temp Pulse Resp B/P (MAP) Pulse Ox O2 Delivery O2 Flow Rate FiO2 02/17/18 08:45 97 148/69 02/17/18 06:00 99.0 18 93 Room Air I&O- Last 24 Hours up to 6 AM 02/17/18 06:00 Intake Total 1900 ml Output Total 6275 ml Balance -4375 ml MARGUERITE MAYNARD MD Feb 17, 2018 11:33
[2018-02-17] MEDS ORDERED: PARoxetine 10MG TABLET PO ONE (11:45)
[2018-02-17 12:07] LABS: SODIUM,RANDOM URINE 22 MEQ/L
[2018-02-17 12:25] LABS: OSMOLALITY URINE 137 MOSM/KG (500-800)
[2018-02-17] MEDS ORDERED: MOM 30ML SUSPENSION UDC PO PRN (12:30)
[2018-02-17] MEDS ORDERED: FUROSEMIDE 40 MG TAB PO SCH (12:30)
[2018-02-17] MEDS: MIRALAX *UNIT DOSE* 17GM PACKET PO SCH ×2 (13:13→20:58)
[2018-02-17 13:23] LABS: BLOOD UREA NITROGEN 6 MG/DL (7-18); CALCIUM LEVEL 8.4 MG/DL (8.8-10.2); CARBON DIOXIDE LEVEL 31 MEQ/L (21-32); CHLORIDE LEVEL 95 MEQ/L (98-107); CREATININE FOR GFR 0.58 MG/DL (0.55-1.30); GLOMERULAR FILTRATION RATE > 60.0 (>39); GLUCOSE, FASTING 87 MG/DL (70-100); POTASSIUM SERUM 4.2 MEQ/L (3.5-5.1); SODIUM LEVEL 131 MEQ/L (136-145)
[2018-02-17 13:31] LABS: OSMOLALITY SERUM 268 MOSM/KG (280-301)
[2018-02-17 14:00] VITALS: BP 122/60
--- NOTE | 2018-02-17 14:56 | CR ---
DATE OF CONSULTATION: 02/17/2018 REQUESTING PHYSICIAN: Tramaine Mejias MD CONSULTING PHYSICIAN: Shahida Goldberg MD REASON FOR CONSULTATION: Management of over-correction of hyponatremia. CHIEF COMPLAINT: Patient presented to the hospital on 02/15/2018 with severe right hip pain. HISTORY OF PRESENT ILLNESS: Anne Campa is a 72-year-old female with history of hypertension, hypothyroidism, hyperlipidemia, depression, and multiple other comorbidities as mentioned below. She has history of avascular necrosis of the right femur head. She was supposed to get the MRI done as outpatient, however, during the MRI she had severe pain. She was unable to bear the pain. She was sent to the emergency room for further evaluation and treatment. She was admitted under the hospitalist service. Initial labs done in emergency room showed that she had a sodium of 121 and she had almost near normal renal function with a creatinine of 0.7. Patient was given IV fluid hydration and her sodium improved from 121 to 136 in almost 18 hours. Patient made 8 liters of urine on February 16, 2018. She was given IV D5W boluses. Her sodium did go down fro 136 to 133 yesterday in the evening. On today morning labs her sodium is again 136. She is also hypokalemic with a potassium of 3.2. Nephrology service was called for further help in the management of this patient with hyponatremia and over-correction. I saw and evaluated the patient today morning at the bedside. Patient is awake and alert. She denies any active complaints. She reports her pain is optimized. She also reports that before coming to the hospital she was having pain in the right hip for more than 2 months and pain was uncontrolled. She was also nauseated for almost three days before coming to the hospital and she reports that after getting the morphine injections and pain medications, her pain is better optimized and she is feeling better. PAST MEDICAL HISTORY: 1. Hypertension. 2. Hyperlipidemia. 3. Hypothyroidism. 4. Osteoarthritis. 5. 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 6. Avascular necrosis of the right hip. PAST SURGICAL HISTORY: 1. Hysterectomy in the past. 2. Status post tonsillectomy. 3. Enucleation of the left eye in childhood. ALLERGIES: Patient is allergic to TRAMADOL. FAMILY HISTORY: No significant family history of end-stage renal disease requiring hemodialysis. SOCIAL HISTORY: Patient lives at home. She denies any illicit drug abuse or alcohol abuse. REVIEW OF SYSTEMS: CONSTITUTIONAL: Patient denies any weakness, chills or rigors. EYES: She reports loss of left eye in childhood. ENT: She denies any dyspnea or dynephagia, ear discharge. CARDIOVASCULAR: She denies any chest pain or palpitations. RESPIRATORY: She denies any shortness of breath, wheezing or cough. GASTROINTESTINAL (GI): She reported nausea and vomiting for about three days before coming to the hospital but now she feels better. GENITOURINARY: She denies any dysuria, hematuria. MUSCULOSKELETAL: She reports severe right hip pain which is getting better now. CENTRAL NERVOUS SYSTEM: She denies any strokes or seizures. SKIN: She denies any rashes or ulcers. ENDOCRINE: She reports history of hypothyroidism. HEMATOLOGICAL/ONCOLOGICAL: She denies any easy bleeding or bruising. All other review of systems are negative. PHYSICAL EXAMINATION: GENERAL: The patient is awake, alert and oriented times three. Laying in bed. No apparent distress. VITAL SIGNS: Temperature is 99 degrees Fahrenheit. Blood pressure 148/69, pulse is 97, respiratory rate of 18, saturating 93% on room air. Intake and output: Urine output recorded yesterday is 8 liters. Urine output so far today since overnight is 1.3 liters. HEAD/NECK: Patient has a enucleated left eye. Mucous membranes are moist. Neck is supple. There is no jugular venous distention (JVD). CARDIOVASCULAR: S1, S2, regular rate. No murmur, rub or gallop. RESPIRATORY: Chest is clear to auscultation bilaterally. Bilateral equal air entry. No rales or rhonchi. ABDOMEN: Soft. Positive bowel sounds. Nontender. No organomegaly. MUSCULOSKELETAL: She has range of movement of the right leg. Her right leg is shortened and externally rotated. She has trace edema of the bilateral lower extremities. CENTRAL NERVOUS SYSTEM: No focal deficit. Power is 5/5 in bilateral upper extremities. PSYCHIATRIC: Normal mood and affect. LABORATORY REVIEW: CBC showed a WBC 10.1, hemoglobin 10.3, platelets are 398. Urinalysis done yesterday showed specific gravity of 1.001. Negative leukocyte esterase. Negative protein. Urine osmolarity done today morning showed 137 and urine random sodium was 22. BMP done on arrival on 02/15/2018 showed a sodium of 121, potassium 3.7, chloride 82, bicarbonate 30, BUN 5, creatinine is 0.7. Calcium 9.1, magnesium 1.7, albumin 2.7. BNP done today morning showed sodium 136, potassium 3.2, chloride 98, bicarbonate 31, BUN 5, creatinine is 0.6. Magnesium 1.9. C-reactive protein 2.4, albumin is 2.1. IMAGING: X-ray of the hip and pelvis done on February 15, 2018 showed severely collapsed femoral head with severe subluxation on the right side. CURRENT INPATIENT MEDICATIONS: Patient's medications are all reviewed by me. She was given a bolus of D5W yesterday and today morning. She is on Tylenol as needed. She is on [place] 1 tablet every 4 hours as needed moderate pain. She is on vitamin C 500 mg daily. Atenolol 50 mg daily. Benadryl 25 mg daily. Senokot 1 tablet by mouth twice a day. Lovenox 40 mg subcutaneous daily. She was on Lasix 80 mg by mouth daily which was stopped yesterday. She is on milk of magnesia as needed. Omeprazole 40 mg daily. Oxybutynin 5 mg by mouth daily, paroxetine 30 mg daily, MiraLAX 1 package by mouth twice a day. Potassium chloride 40 mEq by mouth one dose is given today morning. Zocor 40 mg daily. Vitamin D 2000 units by mouth daily. ASSESSMENT: 72-year-old female with history of depression, hypertension, avascular necrosis of the right hip admitted with intractable pain and hyponatremia. PLAN: 1. Hyponatremia. I did not see the patient on first day when she came in with a sodium of 121, however, patient has already corrected to normal range. Looking at the sequences, even on the last 24 hours and patient's urine output of almost 8 liters, looks like patient most likely has syndrome of inappropriate secretion of antidiuretic hormone (SIADH) secondary to a combination of use of selective serotonin reuptake inhibitors (SSRIs), severe pain and nausea and when severe pain and nausea stimulus was removed when patient arrived in the emergency room and she was given pain medications, she rapidly corrected because of loss of stimulus per antidiuretic hormone (ADH). She made 8 liters of urine and her sodium level corrected within normal. I am seeing the patient 24 hours after patient has already corrected to normal range. At this point, there is no use of giving her D5W. Her sodium levels are within normal range. Urine osmolarity is 137, which is optimal. It is okay to continue the SSRI at this point. Continue the pain optimization and nausea optimization. Continue to monitor daily BMP. If patient develops hyponatremia again, then SSRI would need to be stopped. 2. Hypokalemia. It is secondary to rapid aquaresis of almost 9 liters of urine since yesterday. Patient was already given potassium chloride 40 mEq by mouth times one dose by the primary team. 4. Hypertension. Blood pressure is acceptable. Continue current dose of atenolol 50 mg by mouth daily. Patient was also on enalapril 10 mg daily at home. If needed if blood pressure goes above 150 systolic, she can be restarted on home dose of enalapril with careful monitoring of sodium levels. 5. Lower extremity edema. The patient has mild lower extremity edema. Her home dose of Lasix was 80 mg daily. I am going to restart her on Lasix 40 mg daily starting tomorrow morning. 6. Fracture neck of femur on the right side. Orthopedic surgery is already on board. Pain is being optimized. Patient is pending MRI of the hip to rule out infection and final plan is to do a right hip arthroplasty. Thank you for involving me in the care of this patient. I shall be happy to follow the patient along with you tomorrow morning.
[2018-02-17 18:00] VITALS: BP 132/66
[2018-02-17] MEDS: SIMVASTATIN 40 MG TAB PO SCH (20:57)
[2018-02-17] MEDS: NICOTINE 14 MG/24 HR TRANSDERMAL TD SCH (20:58)
[2018-02-17 22:00] VITALS: BP 124/61
[2018-02-18 02:00] VITALS: BP 141/68
[2018-02-18] MEDS: ACETAMINOPHEN TAB 650MG DOSE (2X325MG) PO PRN ×3 (03:01→20:46)
[2018-02-18 06:00] VITALS: BP 151/65
[2018-02-18 06:18] LABS: BASO # 0.1 10^3/uL (0.0-0.2); BASO % 0.5 % (0.0-1.0); EOS # 0.2 10^3/uL (0.0-0.50); EOS % 1.4 % (0.0-3.0); HEMATOCRIT 29.4 % (36.0-47.0); HEMOGLOBIN 10.1 g/dl (12.0-15.5); LYMPH # 1.7 10^3/uL (1.5-4.5); LYMPH % 13.3 % (24.0-44.0); MEAN CORPUSCULAR HEMOGLOBIN 32.4 pg (27.0-33.0); MEAN CORPUSCULAR HGB CONC 34.4 g/dl (32.0-36.5); MEAN CORPUSCULAR VOLUME 94.2 fl (80.0-96.0); MONO # 1.1 10^3/uL (0.0-0.8); MONO % 8.8 % (0.0-5.0); NEUTROPHILS # 9.8 10^3/uL (1.8-7.7); NEUTROPHILS % 75.5 % (36.0-66.0); PLATELET COUNT, AUTOMATED 385 10^3/uL (150-450); RED BLOOD COUNT 3.12 10^6/uL (4.00-5.40); WHITE BLOOD COUNT 12.9 10^3/uL (4.0-10.0)
[2018-02-18 06:46] LABS: ALT/SGPT 7 U/L (12-78); BILIRUBIN,TOTAL 0.3 MG/DL (0.2-1.0); BLOOD UREA NITROGEN 5 MG/DL (7-18); CALCIUM LEVEL 8.9 MG/DL (8.8-10.2); CARBON DIOXIDE LEVEL 30 MEQ/L (21-32); CHLORIDE LEVEL 99 MEQ/L (98-107); CREATININE FOR GFR 0.66 MG/DL (0.55-1.30); GLOMERULAR FILTRATION RATE > 60.0 (>39); GLUCOSE, FASTING 131 MG/DL (70-100); POTASSIUM SERUM 3.3 MEQ/L (3.5-5.1); SODIUM LEVEL 136 MEQ/L (136-145)
[2018-02-18 07:14] LABS: MAGNESIUM LEVEL 1.6 MG/DL (1.8-2.4)
[2018-02-18] MEDS ORDERED: MAG SULF 1GM/100ML (MAG RUN) 1 GM in APPROPRIATE DILUENT 1 EA IV ONE (08:00)
[2018-02-18] MEDS ORDERED: POTASSIUM CHLORIDE 10 MEQ SR TABLET PO ONE (08:00)
[2018-02-18] MEDS: oxyBUTYnin *DITROPAN XL* 5 MG TABCR PO SCH (08:40)
[2018-02-18] MEDS: PARoxetine 10MG TABLET PO SCH (08:40)
[2018-02-18] MEDS: VITAMIN D 1,000 INTERNATIONAL UNITS TABLET PO SCH (08:40)
[2018-02-18] MEDS: OMEPRAZOLE 20 MG CAP PO SCH (08:40)
[2018-02-18] MEDS: ASCORBIC ACID 500 MG TAB PO SCH (08:40)
[2018-02-18] MEDS: ATENOLOL 50 MG TAB PO SCH (08:40)
[2018-02-18] MEDS: ENOXAPARIN 40 MG/0.4 ML SYRINGE (J1650) SC SCH (08:41)
[2018-02-18] MEDS: POLYVINYL ALCOHOL OPHTH SOLN 15 ML(LIQUITEARS) OD SCH (08:41)
[2018-02-18] MEDS: diphenhydrAMINE 25 MG CAP PO SCH (08:43)
[2018-02-18] MEDS ORDERED: PARoxetine 10MG TABLET PO SCH (09:00)
[2018-02-18] MEDS: MIRALAX *UNIT DOSE* 17GM PACKET PO SCH ×2 (09:00→21:00)
[2018-02-18] MEDS: SENOKOT S TAB PO SCH ×2 (09:00→20:46)
[2018-02-18] MEDS ORDERED: PROHANCE 279.3MG/ML 15ML VIAL (A9576) As Ordered ONE (10:04)
[2018-02-18 11:00] VITALS: BP 140/82
--- NOTE | 2018-02-18 11:23 | REP ---
MRI RIGHT HIP WITHOUT CONTRAST: HISTORY: Rule out infection. Chronic avascular necrosis with collapse of the femoral head. Comparison radiographs are from February 15, 2018 and January 25, 2018. Comparison is made with imaging from CT study of the pelvis June 28, 2012. TECHNIQUE: Axial, coronal and sagittal imaging planes utilized. T1- and T2-weighted scans were obtained with and without fat saturation. The patient could only tolerate limited scanning and there is some motion artifact. We were unable to utilize intravenous contrast and obtain postcontrast imaging. MRI FINDINGS: Cortical and medullary bone signal intensity are normal in the proximal femur on the left and in the visualized bony pelvic ring. There is low T1- low T2 signal intensity marrow signal change in the superior acetabulum corresponding with sclerosis seen radiographically. There is no evidence of marrow edema on the acetabular side of the right hip joint. There is a mild marrow edema in the intertrochanteric femur on the right. There is considerable near-complete resorption of the femoral head on the right with fragments of bone and granulation tissue occupying the joint. There is T2 hyperintense material in the joint surrounding the fragmented femoral head components. There is soft tissue edema in the jonatan-articular and gluteal musculature on the right. A peritrochanteric bursal fluid collection is suspected. A Hunt catheter is seen in the urinary bladder. No pelvic mass is seen. No adenopathy or abdominal wall defect noted. IMPRESSION: Extensive fragmentation and resorption of the femoral head on the right with some fragmentation of the femoral neck and subcortical cyst formation in the femoral neck. There is mild femoral neck marrow edema but there is no edema on the other side of the articulation in the acetabulum. There is sclerosis here. The lack of edema on both sides of the articulation mitigates against infection. There is some edema in the periarticular musculature and I cannot exclude a bursal fluid collection. There is a para labral complex cyst superiorly and laterally adjacent to the left hip noted incidentally. Electronically Signed by Ivan Balderrama MD 02/18/2018 08:11 P
--- NOTE | 2018-02-18 12:29 | IPNPDOC ---
Text Note Date of Service The patient was seen on 02/18/18. NOTE Subjective: Hip pain controlled. No radiculopathy or alarming signs. Had her MRI this am. Objective: Vitals: (see below) General: No acute distress, laying comfortably in bed. HEENT: Moist mucous membranes. Neck: No JVD or lymphadenopathy Cardiac: RRR, No murmurs Pulm: Clear to auscultation b/l. No wheezing, rhonchi Abd: NT/ND + BS Ext: Trace to 1+ pitting edema BLE. No cyanosis. Pain with movement of right hip, however strength intact. distal pulses intact. Labs (see below) Images: X ray hip 02/16/18 Impression: 1. Previously noted severe collapsed femoral head with superior subluxation and pseudoarticulation of the more superior aspect of the femoral neck with the superior lateral acetabular margin. No marika dislocation. A new fracture line in the right femoral neck is suggested compared to the study from 01/25/2018. Assessment/Plan 1. Hip pain with ? Fx. - Management per ortho, with plan for MRI and possible surg. ?AVN. Pain management per ortho. 2. Chronic LE edema - on lasix. 3. HLD on statin. 4. Chronic Hyponatremia, improved. - s/p NS and D5, restarted on lasix, half dose by nephro. No changes in mentation. No focal deficits. Discussed with Dr. 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 No need for D5. Had corrected more than expected with her diuresis on admission. If Hyponatremia becomes persistent, will need to d/c SSRI. 5. Leukocytosis. Likely reactive. No signs of infection. Afebrile. Continue to monitor. DVT prophy: per ortho. Overall prognosis guarded. VS,Fishbone, I+O VS, Fishbone, I+O Laboratory Tests 02/17/18 12:36 Calcium Level 8.4 L 02/18/18 05:22 Calcium Level 8.9, Red Blood Count 3.12 L, Mean Corpuscular Volume 94.2, Mean Corpuscular Hemoglobin 32.4, Mean Corpuscular Hemoglobin Concent 34.4, Red Cell Distribution Width 12.6, Neutrophils (%) (Auto) 75.5 H, Lymphocytes (%) (Auto) 13.3 L, Monocytes (%) (Auto) 8.8 H, Eosinophils (%) (Auto) 1.4, Basophils (%) (Auto) 0.5, Neutrophils # (Auto) 9.8 H, Lymphocytes # (Auto) 1.7, Monocytes # (Auto) 1.1 H, Eosinophils # (Auto) 0.2, Basophils # (Auto) 0.1, Aspartate Amino Transf (AST/SGOT) 10, Alanine Aminotransferase (ALT/SGPT) 7 L, Alkaline Phosphatase 52, Total Bilirubin 0.3, Total Protein 5.0 L, Albumin 2.0 L Vital Signs Date Time Temp Pulse Resp B/P (MAP) Pulse Ox O2 Delivery O2 Flow Rate FiO2 02/18/18 11:00 97.7 76 18 140/82 (101) 97 Room Air I&O- Last 24 Hours up to 6 AM 02/18/18 06:00 Intake Total 2640 ml Output Total 4650 ml Balance -2010 ml MARGUERITE MAYNARD MD Feb 18, 2018 12:29
--- NOTE | 2018-02-18 12:59 | IPNPDOC ---
MARGUERITE MAYNARD MD Feb 18, 2018 12:59
[2018-02-18 14:00] VITALS: BP 117/63
--- NOTE | 2018-02-18 14:52 | IPN ---
DATE OF SERVICE: 02/18/2018 SUBJECTIVE: The patient was seen and examined at the bedside today morning. Patient came back after getting MRI of the right hip done. She is reporting significant amount of pain in the right hip. She is otherwise hemodynamically stable. Patient is still having significant urine output. Sodium levels are stable with a sodium of 136 today morning. Patient has hypokalemia today. OBJECTIVE: VITAL SIGNS: Temperature is 97.7 degrees Fahrenheit, blood pressure 140/82, pulse is 76, respiratory rate of 18, saturating 97% on room air. INTAKE/OUTPUT: Urine output recorded as 3.4 liters yesterday, 2.5 liters today since overnight. Weight in the bed scale is not available. PHYSICAL EXAMINATION: GENERAL: The patient is awake, alert, oriented times three, laying in bed, in no apparent distress. HEAD AND NECK EXAM: Patient has a enucleated left eye. Mucous membranes are moist. Neck is supple. There is no jugular venous distention (JVD). CARDIOVASCULAR: S1, S2, regular rate. No edema of the bilateral lower extremities. RESPIRATORY: Chest is clear to auscultation bilaterally. Bilateral equal air entry. No rales or rhonchi. ABDOMEN: Abdomen is soft. Positive bowel sounds, nontender. No organomegaly. MUSCULOSKELETAL: Decreased range of movement of the right leg. Short and externally right leg, otherwise no edema. CENTRAL NERVOUS SYSTEM: No focal deficit. Power is 5/5 in bilateral upper extremities. PSYCHIATRIC: Normal mood and affect. LAB REVIEW: CBC showed a WBC of 12.9, hemoglobin 10.1, platelets are 385. BMP showed sodium 136, potassium 3.3, chloride 99, bicarbonate 30, BUN 5, creatinine is 0.66, glucose 131, magnesium is 1.6, albumin is 2. IMAGING: MRI of the hip was done today morning which showed extensive fragmentation and absorption of the femoral head in the right with some fragmentation of the femoral neck and subcortical cyst formation in the femoral neck. No evidence of acute infection. CURRENT INPATIENT MEDICATIONS: The patient's medications were all reviewed by me. She was given a dose of mag sulfate 1 gram IV today morning. She was supposed to be on Lasix 40 mg by mouth daily, I have stopped the Lasix because patient is already having a lot of aquaresis. Patient was given a dose of potassium chloride 40 mEq by mouth times one dose today morning. ASSESSMENT AND PLAN: 1. Hyponatremia. It was likely secondary to syndrome of inappropriate antidiuretic hormone secretion (SIADH) as sodium level has improved. Her volume status is optimal. Sodium is 136. Continue pain optimization. Okay to continue selective serotonin reuptake inhibitor (SSRI) at this point. 2. Hypokalemia. It is secondary to extensive aquaresis. Potassium is 3.3. She was already given a dose of potassium chloride 40 mEq. 3. Hypomagnesemia. Patient is being given magnesium sulfate 1 gram IV times one dose. 4. Hypertension. Blood pressure is controlled. Continue current dose of atenolol 50 mg by mouth daily. Patient was on enalapril as well, however, enalapril is on hold. She was chronically hyponatremic as well. I wonder if enalapril might also be contributing to this hyponatremia. At this point ANA inhibitors will be kept on hold during this hospitalization. 5. Lower extremity edema. Patient was on Lasix 80 mg daily at home, I started her on 40 mg daily, however, because of the aquaresis and urine output more than 3 liters a day I am stopping the diuretics at this point. Volume status is optimal. 6. Fractured neck of femur on the right side. Patient got the MRI done. Right hip arthroplasty is as per orthopedic surgery.
[2018-02-18 18:00] VITALS: BP 147/72
[2018-02-18] MEDS: NICOTINE 14 MG/24 HR TRANSDERMAL TD SCH (20:45)
[2018-02-18] MEDS: SIMVASTATIN 40 MG TAB PO SCH (20:46)
[2018-02-18 22:00] VITALS: BP 141/73
[2018-02-19 02:00] VITALS: BP 149/86
[2018-02-19] MEDS: ACETAMINOPHEN TAB 650MG DOSE (2X325MG) PO PRN ×3 (05:06→20:20)
[2018-02-19 06:00] VITALS: BP 159/81
[2018-02-19 06:38] LABS: BASO # 0.1 10^3/uL (0.0-0.2); BASO % 0.6 % (0.0-1.0); EOS # 0.2 10^3/uL (0.0-0.50); EOS % 1.9 % (0.0-3.0); HEMATOCRIT 30.5 % (36.0-47.0); HEMOGLOBIN 10.4 g/dl (12.0-15.5); LYMPH # 2.1 10^3/uL (1.5-4.5); LYMPH % 19.5 % (24.0-44.0); MEAN CORPUSCULAR HEMOGLOBIN 31.9 pg (27.0-33.0); MEAN CORPUSCULAR HGB CONC 34.1 g/dl (32.0-36.5); MEAN CORPUSCULAR VOLUME 93.6 fl (80.0-96.0); MONO # 1.1 10^3/uL (0.0-0.8); MONO % 9.8 % (0.0-5.0); NEUTROPHILS # 7.4 10^3/uL (1.8-7.7); NEUTROPHILS % 67.7 % (36.0-66.0); PLATELET COUNT, AUTOMATED 433 10^3/uL (150-450); RED BLOOD COUNT 3.26 10^6/uL (4.00-5.40); WHITE BLOOD COUNT 10.9 10^3/uL (4.0-10.0)
[2018-02-19 07:09] LABS: ALBUMIN 2.1 GM/DL (3.2-5.2); ALT/SGPT 8 U/L (12-78); BILIRUBIN,TOTAL 0.2 MG/DL (0.2-1.0); BLOOD UREA NITROGEN 4 MG/DL (7-18); CALCIUM LEVEL 8.9 MG/DL (8.8-10.2); CARBON DIOXIDE LEVEL 29 MEQ/L (21-32); CHLORIDE LEVEL 102 MEQ/L (98-107); CREATININE FOR GFR 0.62 MG/DL (0.55-1.30); GLOMERULAR FILTRATION RATE > 60.0 (>39); GLUCOSE, FASTING 88 MG/DL (70-100); MAGNESIUM LEVEL 1.6 MG/DL (1.8-2.4); SODIUM LEVEL 139 MEQ/L (136-145); TOTAL PROTEIN 5.5 GM/DL (6.4-8.2)
[2018-02-19] MEDS ORDERED: MAG SULF 1GM/100ML (MAG RUN) 1 GM in APPROPRIATE DILUENT 1 EA IV ONE (08:00)
[2018-02-19] MEDS: MIRALAX *UNIT DOSE* 17GM PACKET PO SCH ×2 (09:00→20:19)
[2018-02-19] MEDS: SENOKOT S TAB PO SCH ×2 (09:00→20:19)
[2018-02-19] MEDS: PARoxetine 10MG TABLET PO SCH (09:03)
[2018-02-19] MEDS: ENOXAPARIN 40 MG/0.4 ML SYRINGE (J1650) SC SCH (09:03)
[2018-02-19] MEDS: VITAMIN D 1,000 INTERNATIONAL UNITS TABLET PO SCH (09:03)
[2018-02-19] MEDS: ASCORBIC ACID 500 MG TAB PO SCH (09:04)
[2018-02-19] MEDS: diphenhydrAMINE 25 MG CAP PO SCH (09:04)
[2018-02-19] MEDS: OMEPRAZOLE 20 MG CAP PO SCH (09:04)
[2018-02-19] MEDS: oxyBUTYnin *DITROPAN XL* 5 MG TABCR PO SCH (09:04)
[2018-02-19] MEDS: POLYVINYL ALCOHOL OPHTH SOLN 15 ML(LIQUITEARS) OD SCH (09:05)
[2018-02-19] MEDS: ATENOLOL 50 MG TAB PO SCH (09:05)
[2018-02-19 10:00] VITALS: BP 124/74
--- NOTE | 2018-02-19 10:57 | REP ---
Duplex extremity venous ultrasound: Bilateral lower extremity. History: Edema. Rule out DVT. Findings: The deep veins are anechoic and fully compressible from the groin to the popliteal fossa in the left and right lower extremity. Color flow imaging is homogeneous. Spectral Doppler interrogation demonstrates intact respiratory variation in flow and normal manual augmentation of flow. There is no evidence of deep vein thrombosis. There is a Meneses's cyst on the left measuring 5.1 x 1.0 x 2.8 cm. Impression: Left-sided Meneses's cyst, otherwise negative bilateral lower extremity duplex venous ultrasound. No evidence of deep vein thrombosis. Electronically Signed by Ivan Balderrama MD 02/19/2018 10:49 A
[2018-02-19 11:45] LABS: INR 0.99; PROTHROMBIN TIME 13.2 SECONDS (12.1-14.4)
--- NOTE | 2018-02-19 11:50 | REP ---
Chest x-ray: Two views. History: Tobacco use. Findings: The lungs are symmetrically aerated and remain free of infiltrate. Pleural angles are sharp. Heart size is normal. No significant change from February 15, 2018 prior radiograph. Impression: No acute disease. Electronically Signed by Ivan Balderrama MD 02/19/2018 11:42 A
[2018-02-19] MEDS: MUPIROCIN 2% OINT 22 GM TUBE TOP SCH ×3 (12:43→20:20)
[2018-02-19 13:53] LABS: C REACTIVE PROTEIN QUANTITATIV 1.59 MG/DL (0.00-0.30)
[2018-02-19 14:00] VITALS: BP 133/67
[2018-02-19 14:23] LABS: ERYTHROCYTE SEDIMENTATION RATE 41 mm/hr (0-30)
[2018-02-19 18:00] VITALS: BP 131/65
--- NOTE | 2018-02-19 18:40 | IPN ---
DATE: 02/19/2018 The patient seen and examined. Reported hip pain much improved. Denies any chest pain, pressure or discomfort. Denies any fever, chills. VITAL SIGNS: Temperature 97.3, pulse 90, respirations 18, blood pressure (BP) 133/67, pulse oximetry 99% on room air. LABORATORY: White blood count (WBC) 10.9, hemoglobin and hematocrit 10.4/30.5, platelets 433. Chemistry: Sodium 139, potassium 4, chloride 102, bicarbonate 29, BUN 4. PHYSICAL EXAMINATION: GENERAL: The patient is comfortable in no acute distress. HEENT: Normocephalic, atraumatic. PULMONARY: Bilateral clear. CARDIAC: Regular, S1 and S2. ABDOMEN: Soft, nontender. EXTREMITIES: Trace edema in bilateral lower extremities. Painful movement of patient's hip. ASSESSMENT AND PLAN: This is a 72-year-old female patient with underlying medical history of arthritis with severe hip pain. Follows up with Dr. Richter, hypertension, dyslipidemia, hypothyroidism, arthritis, depression presented with severe hip pain, intractable right hip pain. PROBLEMS: 1. Right hip pain, likely avascular necrosis of right hip. Orthopedic consult. Weightbearing as per orthopedics. Magnetic Resonance Imaging (MRI) has been ordered. Further recommendations per orthopedic team. The patient prior to the onset of the pain, which is about 3 or 4 months ago, the patient was active, taking care of animals at home, able to climb up stairs without any problems with METs greater than 4. Denies any cardiac history. Electrocardiogram (EKG) shows sinus rhythm with nonspecific ST segment changes. No change from previous electrocardiogram (EKG). 2. Chronic edema of bilateral lower extremities. Ultrasound negative for deep vein thrombosis (DVT). The patient is on Lasix at home, currently on hold, but nephrology to be restarting it later. Continue to followup fluid status. 3. Dyslipidemia. Continue statin. 4. Hyponatremia improved, status post normal saline and D5, restarted Lasix 1/2 dose by nephrology, but was later discontinued. Likely syndrome of inappropriate antidiuretic hormone secretion (SIADH). The patient's symptoms possibly related to SSRI. If the patient's symptoms worsen, will consider stopping SSRI as per nephrology. 5. Leukocytosis, likely reactive. The patient currently afebrile. C-reactive protein appreciated. 6. Smoking. Counseling provided nicotine patch. 7. Hypertension. Continue atenolol. 8. Deep vein thrombosis (DVT) prophylaxis. The patient on Lovenox. DISPOSITION: Further recommendation as per orthopedics.
--- NOTE | 2018-02-19 20:07 | IPN ---
DATE: 02/19/2018 The patient was seen and examined. This a patient I have been in contact with Dr. Morejon over. 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 She was admitted because she was unable to get around and this is somebody that was seen in our office by one of our physician assistants (PAs) and was scheduled to get an MRI scan as an outpatient to make sure that there was no other process going on with the right hip. I saw her today in the hospital and she is feeling quite a bit better. She is much more comfortable. She gets around with a wheelchair and a walker. Her examination demonstrates that she moves her foot and ankle fairly well. She has some shortening of her right leg compared to her left by at least a couple of centimeters and she has some irritability with range of motion of her right hip. She overall seems to be quite comfortable at rest. Her past medical history is notable in the chart and her x-rays were reviewed which show evidence of likely progressive AVN with collapse and actually disintegration of the femoral head on the right side with the femoral neck articulating with the superior lateral aspect of the acetabulum. This seems have progressed from the x-rays that she had over the past few weeks in the office. She had an MRI scan that was not consistent with any sort of tumor or infection. It likely showed evidence of AVN. Her lab work has been fairly consistent in terms of a white count which is most recently 10.9. She has a sedimentation rate of 41. Her C-reactive protein (CRP) is 1.59 and I suspect that there is some mild elevation due to the inflammatory process going on around her hip related to this AVN and collapse. She has been afebrile. 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 I talked with the patient about the options. I have explained that normally we would recommend a hip replacement for this particular problem. She does have a little bit of reluctance to going ahead with that, but I think it may be the only way to go to keep her pain under control. We certainly do not have to rivas into this. Our office has been in contact with her primary provider and they are going to be able to see her on Sunday in three days for a preoperative clearance. It is anticipated that she will be discharged home tomorrow with pain medication. I would like to see her in the office sometime early next week to make sure that her medical clearance has been done and that she is interested in proceeding with a hip replacement. We can potentially put her on the schedule for sometime next week in about eight or nine days. She is going to consider this. I have talked her about the nature of the procedure. I would prefer to get her out of the hospital prior to proceeding with a hip replacement because number one I feel that this would be most appropriate for her primary provider to do a preoperative clearance and more importantly it is less desirable to do a procedure such as a hip replacement on somebody who has been inpatient for several days, who may be colonized with hospital bacteria and this can make it, in my opinion, a little bit higher risk of infection for a large operation involving an implant, so it would be appropriate, as far as an orthopedic standpoint, to discharge her home tomorrow. Followup with her primary care doctor on Sunday and followup with me sometime early next week to discuss possible hip replacement which we are tentatively going to book for 02/28/2018.
[2018-02-19] MEDS: NICOTINE 14 MG/24 HR TRANSDERMAL TD SCH (20:20)
[2018-02-19] MEDS: SIMVASTATIN 40 MG TAB PO SCH (20:20)
[2018-02-19 20:58] LABS: APPEARANCE, URINE CLEAR (CLEAR); BACTERIA, URINE AUTO NEGATIVE (NEGATIVE); BILIRUBIN, URINE AUTO NEGATIVE (NEGATIVE); BLOOD, URINE BLOOD 1+ (NEGATIVE); COLOR, URINE STRAW (YELLOW); GLUCOSE, URINE (UA) AUTO NEGATIVE (NEGATIVE); KETONE, URINE AUTO NEGATIVE (NEGATIVE); LEUKOCYTE ESTERASE, URINE AUTO 3+ (NEGATIVE); NITRITE, URINE AUTO NEGATIVE (NEGATIVE); PROTEIN, URINE AUTO NEGATIVE (NEGATIVE); RBC, URINE AUTO 0 /HPF (0-3); SPECIFIC GRAVITY URINE AUTO 1.001 (1.002-1.035); SQUAMOUS EPITHELIAL CELL UR AU 0 /HPF (0-6); UROBILINOGEN, URINE AUTO 0.2 mg/dL (0.0-2.0); WBC, URINE AUTO 4 /HPF (0-3)
[2018-02-19 22:00] VITALS: BP 123/71
[2018-02-20] MEDS: ACETAMINOPHEN TAB 650MG DOSE (2X325MG) PO PRN (01:06)
[2018-02-20 02:00] VITALS: BP 120/85
[2018-02-20 06:00] VITALS: BP 145/75
[2018-02-20 06:10] LABS: BASO # 0.1 10^3/uL (0.0-0.2); BASO % 0.6 % (0.0-1.0); EOS # 0.2 10^3/uL (0.0-0.50); EOS % 1.8 % (0.0-3.0); HEMATOCRIT 32.3 % (36.0-47.0); HEMOGLOBIN 10.7 g/dl (12.0-15.5); LYMPH # 1.9 10^3/uL (1.5-4.5); LYMPH % 15.9 % (24.0-44.0); MEAN CORPUSCULAR HEMOGLOBIN 31.6 pg (27.0-33.0); MEAN CORPUSCULAR HGB CONC 33.1 g/dl (32.0-36.5); MEAN CORPUSCULAR VOLUME 95.3 fl (80.0-96.0); MONO # 1.1 10^3/uL (0.0-0.8); MONO % 9.1 % (0.0-5.0); NEUTROPHILS # 8.4 10^3/uL (1.8-7.7); NEUTROPHILS % 71.8 % (36.0-66.0); PLATELET COUNT, AUTOMATED 429 10^3/uL (150-450); RED BLOOD COUNT 3.39 10^6/uL (4.00-5.40); WHITE BLOOD COUNT 11.8 10^3/uL (4.0-10.0)
[2018-02-20 06:39] LABS: BLOOD UREA NITROGEN 6 MG/DL (7-18); CALCIUM LEVEL 9.3 MG/DL (8.8-10.2); CARBON DIOXIDE LEVEL 27 MEQ/L (21-32); CHLORIDE LEVEL 101 MEQ/L (98-107); CREATININE FOR GFR 0.63 MG/DL (0.55-1.30); GLOMERULAR FILTRATION RATE > 60.0 (>39); GLUCOSE, FASTING 82 MG/DL (70-100); MAGNESIUM LEVEL 1.7 MG/DL (1.8-2.4); POTASSIUM SERUM 3.9 MEQ/L (3.5-5.1); SODIUM LEVEL 137 MEQ/L (136-145)
[2018-02-20] MEDS ORDERED: MAG SULF 1GM/100ML (MAG RUN) 1 GM in APPROPRIATE DILUENT 1 EA IV ONE (08:00)
[2018-02-20] MEDS ORDERED: NICO14PA TD (08:23)
--- NOTE | 2018-02-20 08:44 | ECGEPIP ---
Stationary ECG Study [facility] Test Date: 2018-02-19 Pat Name: CRYSTAL GAMINO Department: Room: [place] [address] Gender: F [employer] Chemist: WARREN : 1945 Requested By: Carolee Mahmood Order Number: [id number] Reading MD: Tay Camarillo Measurements Intervals [place] Rate: 84 P: 13 OK: 191 QRS: -19 QRSD: 109 T: 37 QT: 359 QTc: 426 Interpretive Statements SINUS RHYTHM Delayed anterior R wave progression Electronically Signed On 02-20-2018 8:43:46 EST by Tay Camarillo
[2018-02-20] MEDS: diphenhydrAMINE 25 MG CAP PO SCH (09:06)
[2018-02-20] MEDS: OMEPRAZOLE 20 MG CAP PO SCH (09:06)
[2018-02-20] MEDS: oxyBUTYnin *DITROPAN XL* 5 MG TABCR PO SCH (09:06)
[2018-02-20] MEDS: VITAMIN D 1,000 INTERNATIONAL UNITS TABLET PO SCH (09:06)
[2018-02-20] MEDS: ASCORBIC ACID 500 MG TAB PO SCH (09:07)
[2018-02-20] MEDS: MIRALAX *UNIT DOSE* 17GM PACKET PO SCH (09:07)
[2018-02-20 09:08] VITALS: BP 145/75
[2018-02-20] MEDS: ENOXAPARIN 40 MG/0.4 ML SYRINGE (J1650) SC SCH (09:08)
[2018-02-20] MEDS: ATENOLOL 50 MG TAB PO SCH (09:08)
[2018-02-20] MEDS: PARoxetine 10MG TABLET PO SCH (09:08)
[2018-02-20] MEDS: SENOKOT S TAB PO SCH (09:08)
[2018-02-20] MEDS: POLYVINYL ALCOHOL OPHTH SOLN 15 ML(LIQUITEARS) OD SCH (09:11)
[2018-02-20] MEDS: MUPIROCIN 2% OINT 22 GM TUBE TOP SCH (09:11)
[2018-02-20] MEDS ORDERED: POTASSIUM CHLORIDE 10 MEQ SR TABLET PO SCH (09:30)
[2018-02-20 10:00] VITALS: BP 130/73
--- NOTE | 2018-02-20 16:55 | IPNPDOC ---
Text Note Date of Service The patient was seen on 02/20/18. NOTE SUBJECTIVE: Patient was examined at bedside, she is resting comfortably in a wheelchair, surrounded by family. Patient was getting ready to be discharged. Explained to patient. Her plan for follow-up with Dr. Richter, as well as fluid restriction. Patient verbalizes agreement. She had no acute complaints. OBJECTIVE: VITAL SIGNS: See below PHYSICAL EXAMINATION: GENERAL: Alert, awake, oriented, no acute distress HEAD AND NECK EXAM: Neck is supple, no JVD, head is atraumatic CARDIOVASCULAR: S1, S2 present, regular rate, regular rhythm, no rubs, murmurs or gallops RESPIRATORY: Clear to auscultate ABDOMEN: Abdomen is soft. Positive bowel sounds, nontender. No organomegaly. MUSCULOSKELETAL: Range of motion limited in the right leg due to pain, PSYCHIATRIC: Normal mood and affect. ASSESSMENT AND PLAN: 1. Hyponatremia. 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 Patient was drinking several liters of water per day. She was counseled on fluid restriction of 1500 mL per day. Patient verbalized understanding. 2. Hypokalemia. It is secondary to extensive aquaresis. On day of discharge, her potassium was 3.9. She was also placed on 20 mEq of potassium daily. 3. Hypomagnesemia. Replaced prior to discharge 4. Hypertension. Was well controlled during hospital stay. She will resume her home medication. 5. Lower extremity edema. Volumes status was optimized, patient was stable on discharge. 6. Fractured neck of femur on the right side. Follow with Dr. Richter as outpatient. 4. Outpatient hip replacement in approximately 7-9 days. Connor SINGH, I+O VSConnor, I+O Laboratory Tests 02/20/18 05:49 Red Blood Count 3.39 L, Mean Corpuscular Volume 95.3, Mean Corpuscular Hemoglobin 31.6, Mean Corpuscular Hemoglobin Concent 33.1, Red Cell Distribution Width 12.4, Neutrophils (%) (Auto) 71.8 H, Lymphocytes (%) (Auto) 15.9 L, Monocytes (%) (Auto) 9.1 H, Eosinophils (%) (Auto) 1.8, Basophils (%) (Auto) 0. 6, Neutrophils # (Auto) 8.4 H, Lymphocytes # (Auto) 1.9, Monocytes # (Auto) 1.1 H, Eosinophils # (Auto) 0.2, Basophils # (Auto) 0.1, Calcium Level 9.3 Vital Signs Date Time Temp Pulse Resp B/P (MAP) Pulse Ox O2 Delivery O2 Flow Rate FiO2 02/20/18 10:00 98.1 101 18 130/73 (92) 97 Room Air I&O- Last 24 Hours up to 6 AM 02/20/18 05:59 Intake Total 2020 ml Output Total 2700 ml Balance -680 ml GME ATTESTATION GME ATTESTATION My faculty preceptor for this patient encounter was physically present during the encounter and was fully available. All aspects of the patient interview, examination, medical decision making process, and medical care plan development were reviewed and approved by the faculty preceptor. The faculty preceptor is aware and concurs with the plan as stated in the body of this note and will attest to such by his/her cosignature. WOJCIECH SOLOMON DO Feb 20, 2018 16:55
--- NOTE | 2018-02-20 17:24 | DSES ---
DATE OF ADMISSION: 02/15/2018 DATE OF DISCHARGE: 02/20/2018 PRIMARY CARE PROVIDER: Marcia Landon NP ORTHOPEDIC SURGEON: Dr. Hemal Morejon and Dr. Luis Richter CHANGE ATTENDANT: Dr. Goldberg FINAL DIAGNOSES: 1. Right hip pain secondary to avascular necrosis of the right hip. 2. Bilateral lower edema. 3. Dyslipidemia. 4. 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 5. Leukocytosis. 6. Smoking. 7. Hypertension. HISTORY OF PRESENT ILLNESS: This is a 72-year-old female patient with history of arthritis, severe hip pain, follows up with Dr. Richter at [facility], has had MRIs, and the patient was to have an MRI to update the status of her hip due to increasing pain as outpatient. The patient went there but was unable to tolerate pain and the patient reported hearing a pop in her hip. She came to the emergency room. In the emergency room, the patient was complaining of intractable right hip pain and left elbow pain. X-rays showed previously noted severe prolapsed femoral head and possible new fracture line in the right femoral neck suggesting a possible new fracture line in the right femoral head suggested. The patient was given pain medication. X-ray of the elbow was negative. Case was discussed with orthopedics who were on consult for further evaluation. The patient admitted to the hospitalist service. HOSPITAL COURSE: Orthopedics was on consult. Pain medication was prescribed. Hip MRI was done. Ultrasound Doppler was negative for deep vein thrombosis (DVT). MRI of the hip shows extensive fragmentation and resorption of femoral head on the right with some fragmentation of femoral neck and subcortical cyst formation in the femoral neck. There is mild femoral neck marrow edema but there is no edema on the other side of the articulation in the acetabulum. There is sclerosis there. The lack of edema on both sides of the articulation mitigates against inception. Physical therapy was ordered. The patient was able to ambulate with a walker. The patient passed physical therapy. Case was discussed with orthopedics who recommended discharging the patient to see primary care provider as outpatient for preoperative optimization and to reschedule the patient for elective right total hip replacement. Hospital course was complicated with hyponatremia, thought to be secondary to syndrome of inappropriate antidiuretic hormone secretion (SIADH). The patient's blood pressure medication was adjusted. The patient's selective serotonin reuptake inhibitor (SSRI) was initially on hold and later restarted. The patient's sodium normalized and was placed on fluid restriction of 1.5 liters. Currently, the patient is comfortable, passed physical therapy, ready to be discharged for further care as outpatient. VITAL SIGNS: Temperature 98.1, pulse 101, respiratory rate 18, blood pressure 130/73, pulse oximetry 97% on room air. LABORATORY DATA: WBC 11.8, hemoglobin and hematocrit 10.7/32.3, platelets 429. Chemistry: Sodium 137, potassium 3.9, chloride 101, bicarbonate 27, BUN 6, creatinine 0.63, magnesium 1.7. PHYSICAL EXAMINATION: GENERAL: The patient alert, comfortable, in no acute distress. HEENT: Normocephalic, atraumatic. PULMONARY: Bilaterally clear. CARDIAC: Regular. ABDOMEN: Soft, nontender. EXTREMITIES: Trace edema of bilateral lower extremities. DISCHARGE MEDICATIONS: - nicotine patch 14 mg daily transdermal - vitamin C 500 mg by mouth daily - aspirin 81 mg by mouth daily - atenolol 500 mg by mouth daily - Benadryl 25 mg by mouth daily - Synthroid 125 mcg by mouth daily - naproxen 500 mg by mouth daily as needed - omeprazole 40 mg by mouth daily - oxybutynin 5 mg by mouth daily - Paxil 30 mg by mouth daily - Systane eye drops daily - Zocor 40 mg by mouth daily - saline nasal flush as needed - vitamin D 2000 units by mouth daily DISCHARGE INSTRUCTIONS: Please followup with Dr. Richter on 02/21/[address] Rogers 02/22/2018. Need preoperative optimization. Further adjustment of blood pressure medication as per primary. Restart diuretic as per primary. Smoking cessation. Fluid restriction as per nephrology. Please check basic metabolic panel and monitor sodium as per primary. Return to the hospital if symptoms worsen. Fall precaution. [id number] acetaminophen 650 mg by mouth every 4-6 hours as needed for pain control.
--- NOTE | 2018-02-21 06:35 | IPN ---
DATE OF SERVICE: 02/19/2018 SUBJECTIVE: Patient was seen and examined at the bedside today morning. She had just come back after getting the CT scan done. She reports a mild amount of pain in the right hip. She is slightly confused today. Otherwise, she is hemodynamically stable. Her sodium is stable at 139. She is still making a lot of urine, and she reports that she feels thirsty and she drinks a lot of water. OBJECTIVE: Vital signs: Temperature is 97.3 degrees Fahrenheit, blood pressure 124/74, pulse is 88, respiratory rate of 18, saturating 97% on room air. Intake and output: Urine output recorded as 4.3 liters yesterday, 5.1 liters so far today since overnight. Weight on the bed scale is 78.9 kg. PHYSICAL EXAMINATION: General: Patient is awake, alert, oriented times two, lying in bed, in no apparent distress. Head and neck exam: Extraocular muscles intact. Right pupil is reactive to light. Left eye is enucleated. Cardiovascular: S1, S2, regular rate. No edema of the bilateral lower extremities. Respiratory: Chest is clear to auscultation bilaterally. Bilateral equal air entry. No rales or rhonchi. Abdomen: Is soft. Positive bowel sounds. Nontender. No organomegaly. Musculoskeletal: Decrease in range of movement of the right. Leg. Right leg is shortened and externally rotated. 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 Otherwise, moves extremities. Power is 5/5 in bilateral upper extremities. LAB REVIEW: CBC showed WBC 10.9, hemoglobin 10.4, platelets are 433. Urinalysis done today showed a specific gravity of 1.001 with 1+ blood, 3+ leukocyte esterase. BMP done today showed sodium 139, potassium is 4, chloride 102, bicarbonate 29, BUN 4, creatinine is 0.62, magnesium is 1.6, albumin 2.1. CURRENT INPATIENT MEDICATIONS: Patient's medications were all reviewed by me. She was given a dose of magnesium sulfate today. There is no other change in the medications today as compared with yesterday. ASSESSMENT AND PLAN: 1. Hypertension. Blood pressure is acceptable. Continue current dose of atenolol. Enalapril was held on admission. Blood pressures are acceptable. If needed, she will be restated on angiotensin-converting enzyme (ANA) inhibitor or angiotensin receptor juan as outpatient. 2. Polyuria. Patient had hyponatremia on admission, and right now she is making more than a gallon of urine a day. She reports that she feels thirsty because of her medication for overactive bladder and she drinks a lot of water at home as well. I put the patient on 2 liters fluid restriction. Her sodium levels are staying stable despite making more than a gallon of urine a day. I believe patient has psychogenic polydipsia. I will continue to monitor her sodium while I have her on water restriction 2 liters a day. 3. Hypokalemia. Potassium has improved to 4. No need of potassium administration at this point. 4. Fracture neck of femur on the right side. Patient is getting imaging done. She is being seen by orthopedic surgery. Patient has currently elected to undergo right hip surgery.
== END 2018-02-20 11:35 | disposition home or self-care (01) | DRG 554 ==
LOC: M ED 12:59 → M ED INP 16:43 → M MS5PR 20:00
PROVIDERS: ADMIT Internal Medicine; ATTEND Hospitalist
DX: M87.851 Other osteonecrosis, right femur (principal); E22.2 Syndrome of inappropriate secretion of antidiuretic hormone; M84.750A Atypical femoral fracture, unspecified, initial encounter for fracture; E78.5 Hyperlipidemia, unspecified; D72.829 Elevated white blood cell count, unspecified; I10 Essential (primary) hypertension; F17.200 Nicotine dependence, unspecified, uncomplicated; Z79.899 Other long term (current) drug therapy; Z79.82 Long term (current) use of aspirin; Z88.8 Allergy status to other drugs, medicaments and biological substances; M19.90 Unspecified osteoarthritis, unspecified site; E87.6 Hypokalemia; E83.42 Hypomagnesemia

== ENCOUNTER → 2018-02-25 | Outpatient (REF) | payer MEDICARE ==
[~2018-02-25] MED LIST changes: +ASPI81TA85 PO; +ATEN50TA2 PO; +DIPH25CA PO; +ENAL10TA2 PO; +FURO80TA2 PO; +LEVO125T4 PO; +NAPR-885 PO; +NICO14PA TD; +OMEP40CA2 PO; +OXYB5TAB PO; +PARO30TA3 PO; +POTA1TAB23 PO; +SALI0.652 NARES; +SIMV40TA2 PO; +SYST1SOL OD; +VITA200016 PO; +VITA500T PO
[2018-02-25 20:16] LABS: ALBUMIN 2.7 GM/DL (3.2-5.2); ALT/SGPT 13 U/L (12-78); BILIRUBIN,TOTAL 0.2 MG/DL (0.2-1.0); BLOOD UREA NITROGEN 6 MG/DL (7-18); CALCIUM LEVEL 8.8 MG/DL (8.8-10.2); CARBON DIOXIDE LEVEL 27 MEQ/L (21-32); CHLORIDE LEVEL 100 MEQ/L (98-107); CREATININE FOR GFR 0.74 MG/DL (0.55-1.30); GLOMERULAR FILTRATION RATE > 60.0 (>39); GLUCOSE, FASTING 128 MG/DL (70-100); POTASSIUM SERUM 4.2 MEQ/L (3.5-5.1); SODIUM LEVEL 136 MEQ/L (136-145); TOTAL PROTEIN 5.5 GM/DL (6.4-8.2)
== END ==
LOC: M LAB REF 18:24
PROVIDERS: ATTEND Family Medicine Addiction Medicine
DX: E78.1 Pure hyperglyceridemia (principal)

== ENCOUNTER → 2018-03-04 | Outpatient (CLI) | payer MEDICARE ==
[~2018-03-04] MED LIST changes: +PROHANCE 279.3MG/ML 15ML VIAL (A9576) As Ordered ONE
--- NOTE | 2018-03-04 14:48 | REP ---
MRI right hip with IV gadolinium: History: Rule out fracture versus metastatic lesion. History of retinoblastoma. Gadolinium enhancement dose: 15.4 mL of intravenous ProHance. Axial and coronal T1-weighted scans were obtained after contrast. The patient had difficulty with pain and spasm. Comparison MRI study is from February 18, 2018. Findings: Advanced resorption and fragmentation of the femoral head is again seen as described in the February 18, 2018 study. There is extensive enhancement in and about the collapsed right hip joint. Synovial enhancement is seen. There is enhancement in the remaining proximal femur intertrochanteric zone. Enhancement is seen in the acetabular side of the joint. There is at least one irregularly shaped bone fragment within the joint. Impression: Advanced fragmentation, erosion and collapse of the femoral head consistent with advanced avascular necrosis and secondary arthropathy. Infection cannot be completely excluded. Findings not typical of metastatic disease. Findings unchanged from the recent MRI findings. Electronically Signed by Ivan Balderrama MD 03/04/2018 03:06 P
== END ==
LOC: M RAD 12:53
PROVIDERS: ATTEND Physician Assistant Surgical
DX: M16.0 Bilateral primary osteoarthritis of hip (principal); M87.051 Idiopathic aseptic necrosis of right femur
CPT/HCPCS: 73722; A9576

== ENCOUNTER → 2018-03-12 | Outpatient (REF) | payer MEDICARE ==
[~2018-03-12] MED LIST changes: -PROHANCE 279.3MG/ML 15ML VIAL (A9576) As Ordered ONE
[2018-03-12 19:58] LABS: APPEARANCE, URINE HAZY (CLEAR); BACTERIA, URINE AUTO NEGATIVE (NEGATIVE); BILIRUBIN, URINE AUTO NEGATIVE (NEGATIVE); BLOOD, URINE BLOOD NEGATIVE (NEGATIVE); CALCIUM OXALATE CRYSTALS SMALL; COLOR, URINE YELLOW (YELLOW); GLUCOSE, URINE (UA) AUTO NEGATIVE (NEGATIVE); KETONE, URINE AUTO NEGATIVE (NEGATIVE); LEUKOCYTE ESTERASE, URINE AUTO TRACE (NEGATIVE); NITRITE, URINE AUTO NEGATIVE (NEGATIVE); PROTEIN, URINE AUTO NEGATIVE (NEGATIVE); RBC, URINE AUTO 1 /HPF (0-3); SPECIFIC GRAVITY URINE AUTO 1.009 (1.002-1.035); SQUAMOUS EPITHELIAL CELL UR AU 1 /HPF (0-6); WBC, URINE AUTO 4 /HPF (0-3)
== END ==
LOC: M LAB REF 18:49
PROVIDERS: ATTEND Nurse Practitioner Family
DX: R60.0 Localized edema (principal)

== ENCOUNTER → 2018-04-05 | Outpatient (REF) | payer MEDICARE ==
[2018-04-05 13:32] LABS: SOURCE, BODY FLUID RT HIP; SYNOVIAL FLUID COLOR RED (YELLOW)
[2018-04-05 13:37] LABS: CRYSTALS, BODY FLUID NONE SEEN (NONE SEEN); SOURCE, BODY FLUID CRYSTALS RIGHT HIP
[2018-04-05 13:54] LABS: BODY FLUID RHEUMATOID SCREEN NEGATIVE (NEGATIVE)
[2018-04-05 13:56] LABS: MUCIN CLOT TEST NO CLOT (4+)
[2018-04-05 14:01] LABS: SOURCE, BODY FLUID GLUCOSE HIP RIGHT
[2018-04-05 19:58] LABS: SOURCE, BODY FLUID URIC ACID OTHER
== END ==
LOC: M LAB REF 11:33
PROVIDERS: ATTEND Orthopaedic Surgery
DX: M87.051 Idiopathic aseptic necrosis of right femur (principal)

== ENCOUNTER → 2018-05-20 | Outpatient (REF) | payer MEDICARE ==
[~2018-05-20] MED LIST changes: +HYDR-3715 PO; -NORCOTAB PO
[2018-05-20 13:00] LABS: BASO # 0.1 10^3/uL (0.0-0.2); EOS # 0.1 10^3/uL (0.0-0.50); HEMOGLOBIN 13.6 g/dl (12.0-15.5); LYMPH # 1.5 10^3/uL (1.5-4.5); LYMPH % 21.8 % (24.0-44.0); MEAN CORPUSCULAR HEMOGLOBIN 30.4 pg (27.0-33.0); MEAN CORPUSCULAR HGB CONC 32.4 g/dl (32.0-36.5); MONO % 14.5 % (0.0-5.0); NEUTROPHILS # 4.2 10^3/uL (1.8-7.7); NEUTROPHILS % 60.4 % (36.0-66.0); PLATELET COUNT, AUTOMATED 384 10^3/uL (150-450); RED BLOOD COUNT 4.47 10^6/uL (4.00-5.40); WHITE BLOOD COUNT 6.9 10^3/uL (4.0-10.0)
[2018-05-20 13:15] LABS: ALBUMIN 3.4 GM/DL (3.2-5.2); ALT/SGPT 20 U/L (12-78); BILIRUBIN,TOTAL 0.3 MG/DL (0.2-1.0); BLOOD UREA NITROGEN 5 MG/DL (7-18); CALCIUM LEVEL 9.5 MG/DL (8.8-10.2); CARBON DIOXIDE LEVEL 29 MEQ/L (21-32); CHLORIDE LEVEL 106 MEQ/L (98-107); CHOLESTEROL LEVEL 146 MG/DL (<200); CHOLESTEROL RISK RATIO 2.474 (<5); CREATININE FOR GFR 0.75 MG/DL (0.55-1.30); FOLATE 22.9 NG/ML; GLOMERULAR FILTRATION RATE > 60.0 (>39); GLUCOSE, FASTING 99 MG/DL (70-100); HDL CHOLESTEROL 59 MG/DL (>40); LDL CHOLESTEROL 73 MG/DL (<100); NON-HDL-C 87 MG/DL; POTASSIUM SERUM 4.1 MEQ/L (3.5-5.1); SODIUM LEVEL 140 MEQ/L (136-145); THYROID STIMULATING HORMONE 0.852 uIU/ML (0.358-3.740); TOTAL PROTEIN 6.3 GM/DL (6.4-8.2); TRIGLYCERIDES LEVEL 71 MG/DL (<150); VITAMIN B12 LEVEL 490 PG/ML
== END ==
LOC: M LAB REF 12:17
PROVIDERS: ATTEND Nurse Practitioner Family
DX: I10 Essential (primary) hypertension (principal); Z13.9 Encounter for screening, unspecified; E03.9 Hypothyroidism, unspecified

== ENCOUNTER → 2018-06-03 | Outpatient (REF) | payer MEDICARE ==
[2018-06-03 12:40] LABS: BASO # 0.1 10^3/uL (0.0-0.2); BASO % 0.7 % (0.0-1.0); EOS # 0.1 10^3/uL (0.0-0.50); EOS % 1.4 % (0.0-3.0); HEMATOCRIT 41.2 % (36.0-47.0); HEMOGLOBIN 13.6 g/dl (12.0-15.5); LYMPH # 2.1 10^3/uL (1.5-4.5); LYMPH % 21.3 % (24.0-44.0); MEAN CORPUSCULAR HEMOGLOBIN 30.4 pg (27.0-33.0); MEAN CORPUSCULAR VOLUME 92.2 fl (80.0-96.0); MONO # 1.1 10^3/uL (0.0-0.8); MONO % 11.5 % (0.0-5.0); NEUTROPHILS # 6.4 10^3/uL (1.8-7.7); NEUTROPHILS % 64.7 % (36.0-66.0); PLATELET COUNT, AUTOMATED 393 10^3/uL (150-450); RED BLOOD COUNT 4.47 10^6/uL (4.00-5.40); WHITE BLOOD COUNT 9.8 10^3/uL (4.0-10.0)
[2018-06-03 12:43] LABS: ALBUMIN 3.5 GM/DL (3.2-5.2); ALT/SGPT 22 U/L (12-78); BILIRUBIN,TOTAL 0.3 MG/DL (0.2-1.0); BLOOD UREA NITROGEN 7 MG/DL (7-18); CALCIUM LEVEL 9.2 MG/DL (8.8-10.2); CARBON DIOXIDE LEVEL 28 MEQ/L (21-32); CHLORIDE LEVEL 104 MEQ/L (98-107); CREATININE FOR GFR 0.75 MG/DL (0.55-1.30); GLOMERULAR FILTRATION RATE > 60.0 (>39); GLUCOSE, FASTING 108 MG/DL (70-100); POTASSIUM SERUM 4.1 MEQ/L (3.5-5.1); SODIUM LEVEL 140 MEQ/L (136-145); TOTAL PROTEIN 6.2 GM/DL (6.4-8.2)
== END ==
LOC: M LAB REF 12:04
PROVIDERS: ATTEND Nurse Practitioner Family
DX: M25.551 Pain in right hip (principal); I10 Essential (primary) hypertension

== ENCOUNTER → 2018-12-03 | Outpatient (REF) | payer MEDICARE ==
[~2018-12-03] MED LIST changes: -DIPH25CA PO; +DIPH25CA32 PO; -OMEP40CA2; -OMEP40CA2 PO; +OMEP40CA97; +OMEP40CA97 PO; -OXYB5TAB PO; +OXYB5TAB2 PO
[2018-12-03 13:41] LABS: BASO # 0.1 10^3/uL (0.0-0.2); BASO % 0.8 % (0.0-1.0); EOS # 0.1 10^3/uL (0.0-0.5); EOS % 1.8 % (0.0-3.0); HEMATOCRIT 41.4 % (36.0-47.0); LYMPH # 1.7 10^3/uL (1.5-5.0); LYMPH % 23.3 % (24.0-44.0); MEAN CORPUSCULAR HEMOGLOBIN 28.6 pg (27.0-33.0); MEAN CORPUSCULAR HGB CONC 31.4 g/dl (32.0-36.5); MEAN CORPUSCULAR VOLUME 91.2 fl (80.0-96.0); MONO # 0.9 10^3/uL (0.0-0.8); NEUTROPHILS # 4.5 10^3/uL (1.5-8.5); NEUTROPHILS % 61.7 % (36.0-66.0); PLATELET COUNT, AUTOMATED 328 10^3/uL (150-450); RED BLOOD COUNT 4.54 10^6/uL (4.00-5.40); WHITE BLOOD COUNT 7.3 10^3/uL (4.0-10.0)
[2018-12-03 14:01] LABS: BLOOD UREA NITROGEN 8 MG/DL (7-18); GLUCOSE, FASTING 89 MG/DL (70-100)
[2018-12-03 14:02] LABS: ALBUMIN 3.5 GM/DL (3.2-5.2); ALT/SGPT 17 U/L (12-78); BILIRUBIN,TOTAL 0.5 MG/DL (0.2-1.0); CALCIUM LEVEL 9.4 MG/DL (8.8-10.2); CARBON DIOXIDE LEVEL 30 MEQ/L (21-32); CHLORIDE LEVEL 106 MEQ/L (98-107); CHOLESTEROL LEVEL 132 MG/DL (<200); CHOLESTEROL RISK RATIO 2.275 (<5); GLOMERULAR FILTRATION RATE > 60.0 (>39); HDL CHOLESTEROL 58 MG/DL (>40); LDL CHOLESTEROL 53 MG/DL (<100); NON-HDL-C 74 MG/DL; POTASSIUM SERUM 4.3 MEQ/L (3.5-5.1); SODIUM LEVEL 141 MEQ/L (136-145); TOTAL PROTEIN 6.6 GM/DL (6.4-8.2); TRIGLYCERIDES LEVEL 105 MG/DL (<150)
== END ==
LOC: M LAB REF 12:38
PROVIDERS: ATTEND Nurse Practitioner Family
DX: E78.00 Pure hypercholesterolemia, unspecified (principal); I10 Essential (primary) hypertension

== ENCOUNTER 2019-06-05 19:22 | Emergency (ER) | payer MEDICARE ==
[~2019-06-05] VITALS: Ht 162.6 cm; Wt 84.5 kg
[~2019-06-05 19:22] MED LIST changes: +OXYB-54 PO; -OXYB5TAB2 PO; -PARO15TA; +PARO30TA4; -SIMV20TA2; +SIMV20TA22; -SIMV40TA2 PO; +SIMV40TA20 PO; +VITA-243 PO; -VITA500T PO
[2019-06-05] MEDS ORDERED: AMOX500C (19:40)
[2019-06-05] MEDS ORDERED: FURO40TA2 (19:44)
[2019-06-05] MEDS ORDERED: LIDOCAINE 4% CREAM 5GM (LMX4) TOP ONE (19:45)
[2019-06-05] MEDS ORDERED: ACETAMINOPHEN 500 MG TAB PO ONE (19:45)
[2019-06-05 20:43] VITALS: BP 127/58
--- NOTE | 2019-06-06 00:37 | REP ---
Clinical: Fall. Pain. Technique: AP, lateral, bilateral oblique and sunrise views of the left knee. Findings: Age-related osteopenia and moderate/early advanced tricompartmental osteoarthritic degenerative changes including cortical irregularity, subchondral sclerosis, joint space narrowing, and chondrocalcinosis. Lateral view demonstrates prepatellar soft tissue swelling. While no definite acute fracture is appreciated, subtle avulsion fracture versus chronic calcification along the superior margin of the patella requires correlation. Impression: 1. Osteopenia and tricompartmental osteoarthritic degenerative changes. 2. Prepatellar soft tissue swelling. 3. Calcific tendinopathy versus a avulsion fracture along the superior margin of the patella on lateral radiograph requires physical correlation. Electronically Signed by Juan Antonio Damon MD 06/06/2019 12:28 A
--- NOTE | 2019-06-07 17:06 | ED PDOC ---
Post-Departure Follow-Up aurea ospina faxed formal report of left knee film for fu Zita Kraus MD June 07, 2019 17:06
== END 2019-06-05 20:49 | disposition home or self-care (01) ==
LOC: M ED 19:22
DX: S80.02XA Contusion of left knee, initial encounter (principal); W01.0XXA Fall on same level from slipping, tripping and stumbling without subsequent striking against object, initial encounter; Y92.019 Unspecified place in single-family (private) house as the place of occurrence of the external cause; I10 Essential (primary) hypertension; M85.862 Other specified disorders of bone density and structure, left lower leg; M17.12 Unilateral primary osteoarthritis, left knee; E78.5 Hyperlipidemia, unspecified; K58.0 Irritable bowel syndrome with diarrhea; K21.9 Gastro-esophageal reflux disease without esophagitis; Z88.5 Allergy status to narcotic agent; Z79.899 Other long term (current) drug therapy

== ENCOUNTER → 2019-11-04 | Outpatient (REF) | payer MEDICARE ==
[~2019-11-04] MED LIST changes: +AMOX500C; +ASPI-546 PO; -ASPI1TAB15 PO; -ASPI81TA85 PO; +ASPI81TA86 PO; +ENAL-36; +ENAL-36 PO; -ENAL10TA2; -ENAL10TA2 PO; +FURO40TA2
[2019-11-04 12:53] LABS: BASO # 0.1 10^3/uL (0.0-0.2); BASO % 0.6 % (0.0-1.0); EOS # 0.2 10^3/uL (0.0-0.5); EOS % 2.1 % (0.0-3.0); HEMATOCRIT 44.8 % (36.0-47.0); HEMOGLOBIN 14.7 g/dl (12.0-15.5); LYMPH # 1.5 10^3/uL (1.5-5.0); LYMPH % 17.6 % (24.0-44.0); MEAN CORPUSCULAR HEMOGLOBIN 31.7 pg (27.0-33.0); MEAN CORPUSCULAR HGB CONC 32.8 g/dl (32.0-36.5); MEAN CORPUSCULAR VOLUME 96.8 fl (80.0-96.0); MONO # 0.9 10^3/uL (0.0-0.8); NEUTROPHILS % 69.2 % (36.0-66.0); PLATELET COUNT, AUTOMATED 348 10^3/uL (150-450); RED BLOOD COUNT 4.63 10^6/uL (4.00-5.40); WHITE BLOOD COUNT 8.6 10^3/uL (4.0-10.0)
[2019-11-04 13:51] LABS: HEMOGLOBIN A1c 5.4 %
[2019-11-04 19:03] LABS: ALBUMIN 3.6 GM/DL (3.2-5.2); ALT/SGPT 23 U/L (12-78); BILIRUBIN,TOTAL 0.4 MG/DL (0.2-1.0); BLOOD UREA NITROGEN 13 MG/DL (7-18); CALCIUM LEVEL 9.7 MG/DL (8.8-10.2); CARBON DIOXIDE LEVEL 28 MEQ/L (21-32); CHLORIDE LEVEL 105 MEQ/L (98-107); CHOLESTEROL LEVEL 165 MG/DL (<200); CREATININE FOR GFR 0.85 MG/DL (0.55-1.30); GLOMERULAR FILTRATION RATE > 60.0 (>39); GLUCOSE, FASTING 102 MG/DL (70-100); HDL CHOLESTEROL 55 MG/DL (>40); LDL CHOLESTEROL 89 MG/DL (<100); NON-HDL-C 110 MG/DL; POTASSIUM SERUM 4.2 MEQ/L (3.5-5.1); SODIUM LEVEL 140 MEQ/L (136-145); TOTAL PROTEIN 6.6 GM/DL (6.4-8.2); TRIGLYCERIDES LEVEL 104 MG/DL (<150)
== END ==
LOC: M LAB REF 12:17
PROVIDERS: ATTEND Nurse Practitioner Family
DX: E88.09 Other disorders of plasma-protein metabolism, not elsewhere classified (principal); F17.200 Nicotine dependence, unspecified, uncomplicated; Z13.9 Encounter for screening, unspecified; M25.561 Pain in right knee; E78.00 Pure hypercholesterolemia, unspecified; F10.20 Alcohol dependence, uncomplicated

== ENCOUNTER → 2020-08-18 | Outpatient (CLI) | payer OTHER ==
[~2020-08-18] MED LIST changes: +OMEP40CA4; +OMEP40CA4 PO; -OMEP40CA97; -OMEP40CA97 PO
--- NOTE | 2020-08-18 15:12 | DEXAMM ---
INDICATION: SCR FOR OSTEOPOROSIS/Z13.820. Right hip replacement. COMPARISON: Comparison study January 06, 2013.. TECHNIQUE: Bone density was measured using dual-energy x-ray absorptionmetry (DEXA). FINDINGS: AP SPINE L1-L4 BMD 1.136 g/cm2 Young Adult T-Score 6-0.5 Age Matched Z-Score 1.3. LT FEMUR, TOTAL BMD 0.851 g/cm2 Young Adult T-Score -1.2 Age Matched Z-Score 20.4. LT NECK BMD 0.760 g/cm2 Young Adult T-Score -2.0 Age Matched Z-Score -0.1. IMPRESSION: There is normal bone density of the spine. There is low bone density of the left hip. The density of the spine has decreased 1.5% since the initial exam on January 06, 2013. The density of the left hip has decreased 7.7% since initial exam on January 06, 2013. FOLLOW-UP: Recommendation for the next bone density exam: 2 years. <Electronically signed by Parmjit Balderrama > 08/18/20 [id number]
== END ==
LOC: M WHC 14:09
PROVIDERS: ATTEND Nurse Practitioner Family
DX: Z13.820 Encounter for screening for osteoporosis (principal); M85.851 Other specified disorders of bone density and structure, right thigh

== ENCOUNTER → 2020-11-24 | Outpatient (CLI) | payer OTHER ==
[~2020-11-24] MED LIST changes: +ECOT81TA5 PO; +K-TA10TA PO; +MELO15TA28 PO
== END ==
LOC: M LABSMTC 09:56
PROVIDERS: ATTEND Anesthesiology
DX: Z01.812 Encounter for preprocedural laboratory examination (principal); Z20.822 Contact with and (suspected) exposure to COVID-19

== ENCOUNTER → 2020-11-26 | Outpatient (CLI) | payer OTHER ==
--- NOTE | 2020-11-26 15:11 | ECGEPIP ---
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
== END ==
LOC: M EKG 10:28
PROVIDERS: ATTEND Family Medicine Addiction Medicine
DX: Z01.810 Encounter for preprocedural cardiovascular examination (principal)

== ENCOUNTER 2020-11-29 11:00 | Day surgery (SDC) | payer OTHER ==
[~2020-11-29] VITALS: Ht 160 cm; Wt 80.9 kg
[~2020-11-29 11:00] MED LIST changes: +CYCLOPENTOLATE 1% OPHTH SOLN 2 ML BTL OD SCH; +FLURBIPROFEN 0.03% OPHTH SOLN 2.5 ML OD SCH; +LIDOCAINE 1% SDV 5ML VIAL As Ordered ONE; +LR 1,000 ML IV SCH; +PHENYLEPHRINE 2.5% OPHTH SOL 2ML OD SCH; +TETRACAINE 0.5% OPHTH SOLN 4ML OD SCH
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
--- OUTSIDE RECORDS SUMMARY | 2020-11-29 11:05 | CCD ---
Author Organization Unknown Address [address] [place] [address] Phone [phone] Care Team Providers Care Roving Can Tender Name Role Phone [facility] 2 [phone] Allergies Code Code System Name Reaction Severity [...] Active Not available levothyroxine 125 mcg tablet Completed levothyroxine 75 mcg tablet take one tablet by mouth daily in the AM before breakfast. Active Not available meloxicam 15 mg tablet Completed 0 meloxicam 7.5 mg tablet Active Not avai lable naproxen 500 mg tablet Completed 1 omeprazole 40 mg capsule,delayed release Active Not [...] e Assessment [facility] [address] [place], [place] [id number] ( (Work Place) Notes: artificial eye , Tonsillectomy, H ysterectomy (Complete), total right hip replacement Results Lab Results Date Name Specimen Result Interpretation Description Value Range Status Address 10/14/2020 TSH + Free T4, Serum Blood venous Low Tsh 0. 10 mIU/L 0.40-4.50 mIU/L Final [facility]: [address] [facility] Blood venous Normal T4, Free 1.6 NG/dL 0.8-1.8 NG /dL Final [facility]: [address] [facility] 2020 TSH + Free T4, Serum Blood venous Low Tsh 0. 04 mIU/L 0.40-4.50 mIU/L Final [facility]: [address] [facility] Blood venous Normal T4, Free 1.7 NG/dL 0.8-1.8 NG /dL Final [facility]: [address] [facility] 07/14/2020 Iron + TIBC + Ferritin, Serum Blood venous Normal Iron, Total 140 mcg/dL 45-160 mcg/dL Final [facility]: [address] [facility] Blood venous Normal Iron Binding Capacity 31 5 mcg/dL (calc) 250-450 mcg/dL (calc) Final [facility]: [address] [facility] Blood venous Normal % Saturation 44 % (calc) 16-4 5 % (calc) [facility]: [address] [facility] Blood venous Normal Ferritin 29 NG/mL 16-288 NG/m L Final [facility] [address] [facility] Lipid Panel, Blood Blood venous Cholesterol , Total 128 mg/dL <200 mg/dL Final [facility]: [address] [facility] Blood venous Low HDL Cholesterol 40 mg/dL > or = 50 mg/dL [facility]: [address] [facility] Blood venous Triglycerides 92 mg/dL <150 m g/dL [facility]: [address] [facility] Blood venous LDL-cholesterol 70 mg/dL (kia c) <100 mg/dL (calc) Final [facility]: [address] [facility] Blood venous Chol/hdlc Ratio 3.2 calc <5.0 calc Final [facility]: [address] [facility] Blood venous Non HDL Cholesterol 88 m g/dL (calc) <130 mg/dL (calc) Final [facility]: [address] [facility] 07/14/2020 TSH + Free T4, Serum Blood venous Low Tsh 0. 07 mIU/L 0.40-4.50 mIU/L Final [facility]: [address] [facility] Blood venous Normal T4, Free 1.8 NG/dL 0.8-1.8 NG /dL [facility]: [address] [facility] 07/14/2020 CMP, Serum or Plasma Blood venous Normal Glucose 93 mg/dL 65-99 mg/dL Final [facility]: [address] [facility] Blood venous Normal Urea Nitrogen (BUN) 11 mg/dL 7-25 mg/dL [facility]: [address] [facility] Blood venous High Creatinine 0.99 mg/dL 0.60-0. 93 mg/dL Final [facility]: [address] [facility] Blood venous Low eGFR Non-afr. Brazilian 5 7 mL/min/1.73m2 > or = 60 mL/min/1.73m2 Final [facility]: [address] [facility] Blood venous Normal eGFR 66 mL/min/1.73m2 > or = 60 mL/min/1.73m2 Final [facility]: [address] [facility] Blood venous Normal BUN/creatinine Ratio 11 (calc ) 6-22 (calc) Final [facility]: [address] [facility] Blood venous Normal Sodium 139 mmol/L 135-146 mmo l/L [facility]: [address] [facility] Blood venous Normal Potassium 4.4 mmol/L 3.5-5.3 mmol/L [facility]: [address] [facility] Blood venous Normal Chloride 105 mmol/L 98-110 mm ol/L [facility]: [address] [facility] Blood venous Normal Carbon Dioxide 27 mmol/L 20-3 2 mmol/L [facility]: [address] [facility] Blood venous Normal Calcium 9.5 mg/dL 8.6-10.4 mg /dL [facility]: [address] [facility] Blood venous Normal Protein, Total 6.1 g/dL 6.1-8 .1 g/dL [facility]: [address] [facility] Blood venous Normal Albumin 3.8 g/dL 3.6-5.1 g/dL [facility]: [address] [facility] Blood venous Normal Globulin 2.3 g/dL (calc) 1.9- 3.7 g/dL (calc) [facility]: [address] [facility] Blood venous Normal Albumin/globulin Ratio 1 .7 (calc) 1.0-2.5 (calc) [facility]: [address] [facility] Blood venous Normal Bilirubin, Total 0.5 mg/dL 0. 2-1.2 mg/dL [facility]: [address] [facility] Blood venous Normal Alkaline Phosphatase 39 U/L 3 7-153 U/L [facility]: [address] [facility] Blood venous Normal Ast 14 U/L 10-35 U/L Final [facility]: [address] [facility] Blood venous Normal Alt 9 U/L 6-29 U/L Final [facility]: [address] [facility] 07/14/2020 Urinalysis Complete, Reflex Culture Blood venous Normal Color yellow yellow [facility]: [address] [facility] Blood venous Normal Appearance clear clear Irene l [facility]: [address] [facility] Blood venous Normal Specific Gary 1.011 1.001 -1.035 [facility]: [address] [facility] Blood venous Normal Ph 6.5 5.0-8.0 Final [facility]: [address] [facility] Blood venous Normal Glucose negative negative Fin al [facility]: [address] [facility] Blood venous Normal Bilirubin negative negative F inal [facility]: [address] [facility] Blood venous Normal Ketones negative negative Fin al [facility]: [address] [facility] Blood venous Normal Occult Blood negative negativ e [facility]: [address] [facility] Blood venous Normal Protein negative negative Fin al [facility]: [address] [facility] Blood venous Normal Nitrite negative negative Fin al [facility]: [address] [facility] Blood venous Normal Leukocyte Esterase negative n egative [facility]: [address] [facility] Blood venous Normal Wbc none seen /hpf < or = 5 /hpf Final [facility]: [address] [facility] Blood venous Normal Rbc none seen /hpf < or = 2 /hpf Final [facility]: [address] [facility] Blood venous Normal Squamous Epithelial Cells none seen /hpf < or = 5 /hpf Final [facility] [address] [facility] Blood venous Normal Bacteria none seen /hpf none seen /hpf Final [facility]: [address] [facility] Blood venous ABNORMAL Hyaline Cast 0-5 /lpf none seen /lpf Final [facility]: [address] [facility] 07/14/2020 Culture, Urine Reflexive Urine Culture Final [facility]: [address] [facility] 07/14/2020 CBC W/ Auto Diff Normal White Blood Cell Co unt 9.2 thousand/uL 3.8-10.8 thousand/uL Final [facility]: [address] [place] Normal Red Blood Cell Count 4.44 mill ion/uL 3.80-5.10 million/uL Final [facility] [address] [facility] [facility] [facility] Hemoglobin 14.4 g/dL 11.7-15.5 g/dL Final [facility]: [address] [facility] Normal Hematocrit 42.0 % 35.0-45.0 % Final [facility]: [address] [facility] Normal Mcv 94.6 fL 80.0-100.0 fL Final [facility]: [address] [facility] Normal Mch 32.4 pg 27.0-33.[address] [facility]: [address] [facility] Normal Mchc 34.3 g/dL 32.0-36.0 g/dL Final [facility]: [address] [facility] Normal Rdw 12.3 % 11.0-15.0 % Final [facility]: [address] [facility] Normal Platelet Count 299 thousand/uL 140-4 00 thousand/uL Final [facility]: [address] [facility] Normal Mpv 10.3 fL 7.5-12.5 fL Final [facility]: [address] [facility] Normal Absolute Neutrophils 6008 cells/uL 1 500-7800 cells/uL Final [facility]: [address] [facility] Normal Absolute Lymphocytes 1794 cells/uL 8 50-3900 cells/uL Final [facility]: [address] [facility] Normal Absolute Monocytes 929 cells/uL 200- 950 cells/uL Final [facility]: [address] [facility] Normal Absolute Eosinophils 377 cells/uL 15 -500 cells/uL Final [facility] [address] [facility] [facility] Absolute Basophils 92 cells/uL 0-200 cells/uL Final [facility]: [address] [facility] Normal Neutrophils 65.3 % 38-80 % Final [facility]: [address] [facility] Normal Lymphocytes 19.5 % 15-49 % Final [facility]: [address], [place] Normal Monocytes 10.1 % 0-13 % Final [facility]: [address], [place] Normal Eosinophils 4.1 % 0-8 % Final [facility]: [address], [place] Normal Basophils 1.0 % 0-2 % Final [facility]: [address], [place] 07/14/2020 Vitamin B12 + Folate, Serum or Blood Blood venous Normal Vitamin B12 434 pg/mL 200-1100 pg/mL Final [facility]: [address], [place] Blood venous Normal Folate, Serum >24.0 NG/mL Final [facility]: [address], [place] 12/10/2019 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 10/14/2020 Hemal Rogers MD: [address] [place] [phone], Ph. 08/18/2020 SARS-CoV-2 Vaccination Hemal Rogers MD: [address] [place] [phone], Ph. 2020 Body Mass Index 30+ - Obesity; Tobacco User; Osteoarthritis; Mixed Anxiety and Depressive Disorder; Alcohol Dependence; Hypothyroidism; SARS-CoV-2 Vaccination; Screening for Osteoporosis [facility]: [address] [place] [phone], Ph. 07/14/2020 Hyperlipidemia Hemal Rogers MD: [address] [place] [phone], Ph. 01/06/2020 Poor Short-term Memory; Alcohol Dependence; Nicotine Dependence; Hyperlipidemia [facility]: [address] [place] [phone], Ph. 12/10/2019 Exposure to SARS-CoV-2 Hemal Rogers MD: [address] [place] [phone], Ph. Social History Tobacco Smoking Status Light Tobacco Smoker (1/4 pack per da y) Vaccine List Vaccine Type COVID-19, mRNA, LNP-S, PF, 100 mcg/0.5 m L dose .5 mL .5 mL influenza, injectable, quadrivalent, pre servative free .5 mL 11/10/20190.5 mL influenza, seasonal, injectable 12/31/20170.5 mL Notes: Pt states already had 2019 Plan of Care Patient Instructions Lab results reviewed and discussed with you today. TSH level still decreased trending up. Dose of thyroid medication decreased to 75 mcg today. Will recheck thyroid level in 6-8 weeks. Please try to maintain good nutrition, adequate rest, adequate physical activities and adequate intake of water daily. Lab results reviewed and discussed with you [...] COLLECTION Height 64 in 2020 10:00AM ESTABLISHED [id number] Height Weight BMI Blood Pressure 64 in 189 lbs 4 oz 32.5 kg/m2 108/62 mm[Hg] 07/14/2020 09:00AM NURSE LAB COLLECTION Height 64 in 01/06/2020 08:40AM ESTABLISHED [id number] Height Weight BMI Blood Pressure 64 in [...]
--- OUTSIDE RECORDS SUMMARY | 2020-11-29 11:05 | CCD ---
Author Organization Unknown Address [address] [place] [address] Phone [phone] Care Team Providers Care Tie Knitter Helper Name Role Phone [facility] 2 [phone] Allergies Code Code System Name Reaction Severity [...] mcg tablet Completed levothyroxine 75 mcg tablet Active Not available meloxicam 15 [...] 10/06/2019 History Memory Finding Active 10/06/2019 History Cataract Active 11/17/2020 Depressive Disorder Active History SNOMED CT Concept Active History Finding of Esophagus Active History Procedures Date Name Performed by 08/03/2020 DEXA, Axial Skeleton + Vertebral Fractur e Assessment [facility] [address] [place] [address] (Work Place) 11/17/2020 Electrocardiogram, Routine ECG, 12 Leads [facility] [address] [place] [address] (Work Place) Notes: artificial eye , Tonsillectomy, H ysterectomy (Complete), total right hip replacement Results Lab Results Date Name Specimen Result Interpretation Description Value Range Status Address 10/14/2020 TSH + Free T4, Serum Blood venous Low Tsh 0. 10 mIU/L 0.40-4.50 mIU/L Final [facility] gh: [address] [facility] Blood venous Normal T4, Free 1.6 NG/dL 0.8-1.8 NG /dL Final [facility]: [address] [facility] 2020 TSH + Free T4, Serum Blood venous Low Tsh 0. 04 mIU/L 0.40-4.50 mIU/L Final [facility] gh: [address] [facility] Blood venous Normal T4, Free 1.7 NG/dL 0.8-1.8 NG /dL Final [facility]: [address] [facility] 07/14/2020 Iron + TIBC + Ferritin, Serum Blood venous Normal Iron, Total 140 mcg/dL 45-160 mcg/dL Final [facility]: [address] [facility] Blood venous Normal Iron Binding Capacity 31 5 mcg/dL (calc) 250-450 mcg/dL (calc) Final [facility]: [address] [facility] Blood venous Normal % Saturation 44 % (calc) 16-4 5 % (calc) Final [facility]: [address] [facility] Blood venous Normal Ferritin 29 NG/mL 16-288 NG/m L Final [facility]: [address] [facility] 07/14/2020 Lipid Panel, Blood Blood venous Cholesterol , Total 128 mg/dL <200 mg/dL Final [facility]: [address] [facility] Blood venous Low HDL Cholesterol 40 mg/dL > or = 50 mg/dL Final [facility]: [address] [facility] Blood venous Triglycerides 92 mg/dL <150 m g/dL Final [facility]: [address] [facility] Blood venous LDL-cholesterol 70 mg/dL (kia c) <100 mg/dL (calc) Final [facility]: [address] [facility] Blood venous Chol/hdlc Ratio 3.2 calc <5.[address] [facility]: [address] [facility] Blood venous Non HDL Cholesterol 88 m g/dL (calc) <130 mg/dL (calc) Final [facility]: [address] [facility] 07/14/2020 TSH + Free T4, Serum Blood venous Low Tsh 0. 07 mIU/L 0.40-4.50 mIU/L Final [facility]: [address] [facility] Blood venous Normal T4, Free 1.8 NG/dL 0.8-1.8 NG /dL Final [facility]: [address] [facility] 07/14/2020 CMP, Serum or Plasma Blood venous Normal Glucose 93 mg/dL 65-99 mg/dL Final [facility]: [address] [facility] Blood venous Normal Urea Nitrogen (BUN) 11 mg/dL 7-25 mg/dL Final [facility]: [address] [facility] Blood venous High Creatinine 0.99 mg/dL 0.60-0. 93 mg/dL [facility]: [address] [facility] Blood venous Low eGFR Non-afr. [place] 5 7 mL/min/1.73m2 > or = 60 mL/min/1.73m2 Final [facility]: [address] [facility] Blood venous Normal eGFR 66 mL/min/1.73m2 > or = 60 mL/min/1.73m2 Final [facility]: [address] [facility] Blood venous Normal BUN/creatinine Ratio 11 (calc ) 6-22 (calc) [facility]: [address] [facility] Blood venous Normal Sodium 139 mmol/L 135-146 mmo l/L [facility]: [address] [facility] Blood venous Normal Potassium 4.4 mmol/L 3.5-5.3 mmol/L [facility]: [address] [facility] Blood venous Normal Chloride 105 mmol/L 98-110 mm ol/L [facility]: [address] [facility] Blood venous Normal Carbon Dioxide 27 mmol/L 20-3 2 mmol/L [facility]: [address] [facility] Blood venous Normal Calcium 9.5 mg/dL 8.6-10.4 mg /dL [facility]: [address] [facility] Blood venous Normal Protein, Total 6.1 g/dL 6.1-8 .1 g/dL [facility]: [address] [facility] Blood venous Normal Albumin 3.8 g/dL 3.6-5.1 g/dL [facility]: [address] [facility] Blood venous Normal Globulin 2.3 g/dL (calc) 1.9- 3.7 g/dL (calc) [facility]: [address] [facility] Blood venous Normal Albumin/globulin Ratio 1 .7 (calc) 1.0-2.5 (calc) [facility]: [address] [facility] Blood venous Normal Bilirubin, Total 0.5 mg/dL 0. 2-1.2 mg/dL [facility]: [address] [facility] [place] Blood venous Normal Alkaline Phosphatase 39 U/L 3 7-153 U/L Final [facility]: [address] [facility] Blood venous Normal Ast 14 U/L 10-35 U/L Final [facility]: [address] [facility] [place] Blood venous Normal Alt 9 U/L 6-29 U/L Final [facility]: [address] [facility] 07/14/2020 Urinalysis Complete, Reflex Culture Blood venous Normal Color yellow yellow Final [facility]: [address] [facility] Blood venous Normal Appearance clear clear Irene l [facility]: [address] [facility] Blood venous Normal Specific [place] 1.011 1.001 -1.035 [facility]: [address] [facility] Blood venous Normal Ph 6.5 5.0-8.0 Final [facility]: [address] [facility] Blood venous Normal Glucose negative negative Fin al [facility]: [address] [facility] Blood venous Normal Bilirubin negative negative F inal [facility]: [address] [facility] Blood venous Normal Ketones negative negative Fin al [facility] [address] [facility] Blood venous Normal Occult Blood negative negativ e Final [facility]: [address] [facility] Blood venous Normal Protein negative negative Fin al [facility]: [address] [facility] Blood venous Normal Nitrite negative negative Fin al [facility]: [address] [facility] Blood venous Normal Leukocyte Esterase negative n egative Final [facility]: [address] [facility] Blood venous Normal Wbc none seen /hpf < or = 5 /hpf Final [facility]: [address] [facility] Blood venous Normal Rbc none seen /hpf < or = 2 /hpf Final [facility]: [address] [facility] Blood venous Normal Squamous Epithelial Cells none seen /hpf < or = 5 /hpf [facility] [address] [facility] Blood venous Normal Bacteria none seen /hpf none seen /hpf Final [facility]: [address] [facility] Blood venous ABNORMAL Hyaline Cast 0-5 /lpf none seen /lpf Final [facility]: [address] [facility] 07/14/2020 Culture, Urine Reflexive Urine Culture Final [facility]: [address], [place] 07/14/2020 CBC W/ Auto Diff Normal White Blood Cell Co unt 9.2 thousand/uL 3.8-10.8 thousand/uL Final [facility] [address] [facility] Normal Red Blood Cell Count 4.44 mill ion/uL 3.80-5.10 million/uL Final [facility]: [address], [place] Normal Hemoglobin 14.4 g/dL 11.7-15.5 g/dL Final [facility]: [address] [facility] Normal Hematocrit 42.0 % 35.0-45.0 % Final [facility]: [address] [facility] Normal Mcv 94.6 fL 80.0-100.0 fL Final [facility]: [address] [facility] Normal Mch 32.4 pg 27.0-33.[address] [facility]: [address] [facility] Normal Mchc 34.3 g/dL 32.0-36.0 g/dL Final [facility]: [address] [facility] Normal Rdw 12.3 % 11.0-15.0 % Final [facility]: [address] [facility] Normal Platelet Count 299 thousand/uL 140-4 00 thousand/uL Final [facility]: [address] [facility] Normal Mpv 10.3 fL 7.5-12.5 fL Final [facility]: [address] [facility] Normal Absolute Neutrophils 6008 cells/uL 1 500-7800 cells/uL Final [facility]: [address] [facility] Normal Absolute Lymphocytes 1794 cells/uL 8 50-3900 cells/uL Final [facility]: [address] [facility] Normal Absolute Monocytes 929 cells/uL 200- 950 cells/uL Final [facility]: [address] [facility] Normal Absolute Eosinophils 377 cells/uL 15 -500 cells/uL Final [facility]: [address] [facility] Normal Absolute Basophils 92 cells/uL 0-200 cells/uL Final [facility]: [address] [facility] Normal Neutrophils 65.3 % 38-80 % Final [facility] [place]: [address] [facility] Normal Lymphocytes 19.5 % 15-49 % Final [facility] [place]: [address] [facility] Normal Monocytes 10.1 % 0-13 % Final [facility]: [address] [facility] Normal Eosinophils 4.1 % 0-8 % Final [facility] [place]: [address] [facility] Normal Basophils 1.0 % 0-2 % Final [facility]: [address] [place] 07/14/2020 Vitamin B12 + Folate, Serum or Blood Blood venous Normal Vitamin B12 434 pg/mL 200-1100 pg/mL Final [facility]: [address] [place] Blood venous Normal Folate, Serum >24.0 NG/mL Final [facility]: [address] [place] 12/10/2019 SARS CoV 2 RNA (COVID-19), QL, catapult and arresting gear officer-PCR, Respiratory Specimen Nasopharyngeal Sars Cov 2 RNA not detected not detected Fi nal Past Encounters 11/17/2020 Preoperative Cardiovascular Examination; Cataract; Hypothyroidism Hemal Rogers MD: [address] [place] [phone], Ph. 10/20/2020 Hypothyroidism; Patient Asked to Attend [facility]: [address] [place] [phone], Ph. 10/14/2020 Hemal Rogers MD: [address] [place] [phone], Ph. 08/18/2020 Administration of SARS-CoV-2 Antigen Vaccine Hemal Rogers MD: [address] [place] [phone], Ph. 2020 Body Mass Index 30+ - Obesity; Tobacco User; Osteoarthritis; Mixed Anxiety and Depressive Disorder; Alcohol Dependence; Hypothyroidism; Administration of SARS-CoV-2 Antigen Vaccine; Screening for Osteoporosis [facility]: [address] [place] [phone], Ph. 07/14/2020 Hyperlipidemia Hemal Rogers MD: [address] [place] [phone], Ph. 01/06/2020 Poor Short-term Memory; Alcohol Dependence; Nicotine Dependence; Hyperlipidemia Marcia Dipesh [facility]-: [address] [place] [phone], Ph. 12/10/2019 Exposure to SARS-CoV-2 Hemal Rogers MD: [address] [place] [phone], Ph. Social History Tobacco Smoking Status Light Tobacco Smoker (1/4 pack per da y) Vaccine List Vaccine Type COVID-19, mRNA, LNP-S, PF, 100 mcg/0.5 m L dose .5 mL 10.5 mL influenza, injectable, quadrivalent, pre servative free 12/03/20180.5 mL .5 mL influenza, seasonal, injectable 12/31/20170.5 mL Notes: [...] Surgeries None recorded. Imaging None recorded. Vitals 11/17/2020 03:40PM MEDICAL CLEARANCE Height Weight BMI Blood Pressure 64 in 182 lbs 6 oz 31.3 kg/m2 107/70 mm[Hg] 10/14/2020 09:30AM NURSE LAB COLLECTION Height 64 in 2020 10:00AM ESTABLISHED [id number] Height Weight BMI Blood Pressure 64 in 189 lbs 4 oz 32.5 kg/m2 108/62 mm[Hg] 07/14/2020 09:00AM NURSE LAB COLLECTION Height 64 in 01/06/2020 08:40AM ESTABLISHED [id number] Height Weight BMI Blood Pressure 64 in [...]
--- OUTSIDE RECORDS SUMMARY | 2020-11-29 11:06 | CCD ---
Author Author [facility] Organization [facility] Address Unknown Phone Unavailable Care Team Providers Care Tile And Marble Setter Name Role Phone Evan Rogers MD Unavailable Unavailable Evan Rogers MD Unavailable Unavailable Evan Rogers MD Unavailable Unavailable Evan Rogers MD Unavailable Unavailable Evan Rogers MD Unavailable Unavailable Evan Rogers MD Unavailable Unavailable Evan Rogers MD Unavailable Unavailable Evan Rogers MD Unavailable Unavailable Evan Rogers MD Unavailable Unavailable Evan Rogers MD Unavailable Unavailable Evan Rogers MD Unavailable Unavailable Evan Rogers MD Unavailable Unavailable Evan Rogers MD Unavailable Unavailable Evan Rogers MD Unavailable Unavailable Evan Rogers MD Unavailable Unavailable Evan Rogers MD Unavailable Unavailable Evan Rogers MD Unavailable Unavailable Evan Rogers MD Unavailable Unavailable Evan Rogers MD Unavailable Unavailable Evan Rogers MD Unavailable Unavailable Evan Rogers MD Unavailable Unavailable Evan Rogers MD Unavailable Unavailable Evan Rogers MD Unavailable Unavailable Evan Rogers MD Unavailable Unavailable Evan Rogers MD Unavailable Unavailable Evan Rogers MD Unavailable Unavailable Evan Rogers MD Unavailable Unavailable Evan Rogers MD Unavailable Unavailable Evan Rogres MD Unavailable Unavailable Evan Rogers MD Unavailable Unavailable Evan Rogers MD Unavailable Unavailable Evan Rogers MD Unavailable Unavailable Evan Rogers MD Unavailable Unavailable Evan Rogers MD Unavailable Unavailable Evan Rogers MD Unavailable Unavailable Evan Rogers MD Unavailable Unavailable Evan Rogers MD Unavailable Unavailable Evan Rogers MD Unavailable Unavailable Evan Rogers MD Unavailable Unavailable Evan Rogers MD Unavailable Unavailable Evan Rogers MD Unavailable Unavailable Evan Rogers MD Unavailable Unavailable Evan Rogers MD Unavailable Unavailable Evan Rogers MD Unavailable Unavailable Evan Rogers MD Unavailable Unavailable Evan Rogers MD Unavailable Unavailable Evan Rogers MD Unavailable Unavailable Evan Rogers MD Unavailable Unavailable Evan Rogers MD Unavailable Unavailable Evan Rogers MD Unavailable Unavailable Evan Rogers MD Unavailable Unavailable Evan Rogers MD Unavailable Unavailable Evan Rogers MD Unavailable Unavailable Evan Rogers MD Unavailable Unavailable Evan Rogers MD Unavailable Unavailable Evan Rogers MD Unavailable Unavailable Evan Rogers MD Unavailable Unavailable Evan Rogers MD Unavailable Unavailable Evan Rogers MD Unavailable Unavailable Evan Rogers MD Unavailable Unavailable Evan Rogers MD Unavailable Unavailable Evan Rogers MD Unavailable Unavailable Evan Rogers MD Unavailable Unavailable Evan Rogers MD Unavailable Unavailable Evan Rogers MD Unavailable Unavailable Evan Rogers MD Unavailable Unavailable Evan Rogers MD Unavailable Unavailable Evan Rogers MD Unavailable Unavailable Evan Rogers MD Unavailable Unavailable Evan Rogers MD Unavailable Unavailable Evan Rogers MD Unavailable Unavailable Evan Rogers MD Unavailable Unavailable Evan Rogers MD Unavailable Unavailable Evan Rogers MD Unavailable Unavailable Evan Rogers MD Unavailable Unavailable Evan Rogers MD Unavailable Unavailable Evan Rogers MD Unavailable Unavailable Evan Rogers MD Unavailable Unavailable Evan Rogers MD Unavailable Unavailable Evan Rogers MD Unavailable Unavailable Evan Rogers MD Unavailable Unavailable Evan Rogers MD Unavailable Unavailable Evan Rogers MD Unavailable Unavailable Evan Rogers MD Unavailable Unavailable Evan Rogers MD Unavailable Unavailable Evan Rogers MD Unavailable Unavailable Evan Rogers MD Unavailable Unavailable Evan Rogers MD Unavailable Unavailable Evan Rogers MD Unavailable Unavailable Evan Rogers MD Unavailable Unavailable Evan Rogers MD Unavailable Unavailable Evan Rogers MD Unavailable Unavailable Evan Rogers MD Unavailable Unavailable Dipesh, Marcia DIETETIC ASSISTANT DIETETIC ASSISTANT Unavailable Unavailable Dipesh, A Marcia DIETETIC ASSISTANT Unavailable Unavailable Dipesh, A Marcia DIETETIC ASSISTANT Unavailable Unavailable Dipesh, A Marcia DIETETIC ASSISTANT Unavailable Unavailable Dipesh, A Marcia DIETETIC ASSISTANT Unavailable Unavailable Dipesh, A Marcia DIETETIC ASSISTANT Unavailable Unavailable Dipesh, A Marcia DIETETIC ASSISTANT Unavailable Unavailable Dipesh, A Marcia DIETETIC ASSISTANT Unavailable Unavailable Bronx, A Marcia DIETETIC ASSISTANT Unavailable Unavailable Dipesh, A Marcia DIETETIC ASSISTANT Unavailable Unavailable Dipesh, A Marcia DIETETIC ASSISTANT Unavailable Unavailable Dipesh, A Marcia DIETETIC ASSISTANT Unavailable Unavailable Dipesh, A Marcia DIETETIC ASSISTANT Unavailable Unavailable Dipesh, A Marcia DIETETIC ASSISTANT Unavailable Unavailable [place], A Marcia DIETETIC ASSISTANT Unavailable Unavailable [place], A Marcia DIETETIC ASSISTANT Unavailable Unavailable [place], A Marcia DIETETIC ASSISTANT Unavailable Unavailable Bronx, A Marcia DIETETIC ASSISTANT Unavailable Unavailable Bronx, A Marcia DIETETIC ASSISTANT Unavailable Unavailable Bronx, A Marcia DIETETIC ASSISTANT Unavailable Unavailable Bronx, A Marcia DIETETIC ASSISTANT Unavailable Unavailable Bronx, A Marcia DIETETIC ASSISTANT Unavailable Unavailable Bronx, A Marcia DIETETIC ASSISTANT Unavailable Unavailable [place], A Marcia DIETETIC ASSISTANT Unavailable Unavailable [place], A Marcia DIETETIC ASSISTANT Unavailable Unavailable Bronx, A Marcia DIETETIC ASSISTANT Unavailable Unavailable Bronx, A Marcia DIETETIC ASSISTANT Unavailable Unavailable [place], A Marcia DIETETIC ASSISTANT Unavailable Unavailable [place], A Marcia DIETETIC ASSISTANT Unavailable Unavailable [place], A Marcia DIETETIC ASSISTANT Unavailable Unavailable [place], A Marcia DIETETIC ASSISTANT Unavailable Unavailable Dipesh, A Marcia DIETETIC ASSISTANT Unavailable Unavailable Juvenal Blake MD Unavailable Unavailable Juvenal Blake MD Unavailable Unavailable Juvenal Blake MD Unavailable Unavailable Juvenal Blake MD Unavailable Unavailable Juvenal Blake MD Unavailable Unavailable Juvenal Blake MD Unavailable Unavailable Juvenal Blake MD Unavailable Unavailable Juvenal Blake MD Unavailable Unavailable Juvenal Blake MD Unavailable Unavailable Juvenal Blake MD Unavailable Unavailable Juvenal Blake MD Unavailable Unavailable Juvenal Blake MD Unavailable Unavailable Juvenal Blake MD Unavailable Unavailable Juvenal Blake MD Unavailable Unavailable Juvenal Blake MD Unavailable Unavailable Juvenal Blake MD Unavailable Unavailable Juvenal Blake MD Unavailable Unavailable Juvenal Blake MD Unavailable Unavailable Juvenal Blake MD Unavailable Unavailable Juvenal Blake MD Unavailable Unavailable Juvenal Blake MD Unavailable Unavailable Juvenal Blake MD Unavailable Unavailable Juvenal Blake MD Unavailable Unavailable Juvenal Blake MD Unavailable Unavailable Juvenal Blake MD Unavailable Unavailable Juvenal Blake MD Unavailable Unavailable Juvenal Blake MD Unavailable Unavailable Juvenal Blake MD Unavailable Unavailable Juvenal Blake MD Unavailable Unavailable Juvenal Blake MD Unavailable Unavailable Juvenal Blake MD Unavailable Unavailable Juvenal Blake MD Unavailable Unavailable Juvenal Blake MD Unavailable Unavailable Juvenal Blake MD Unavailable Unavailable Juvenal Blake MD Unavailable Unavailable Juvenal Blake MD Unavailable Unavailable Juvenal Blake MD Unavailable Unavailable Juvenal Blake MD Unavailable Unavailable Juvenal Blake MD Unavailable Unavailable Juvenal Blake MD Unavailable Unavailable Juvenal Blake MD Unavailable Unavailable Juvenal Blake MD Unavailable Unavailable Juvenal Blake MD Unavailable Unavailable Juvenal Blake MD Unavailable Unavailable Juvenal Blake MD Unavailable Unavailable Juvenal Blake MD Unavailable Unavailable Juvenal Blake MD Unavailable Unavailable Juvenal Blake MD Unavailable Unavailable Juvenal Blake MD Unavailable Unavailable Juvenal Blake MD Unavailable Unavailable Juvenal Blake MD Unavailable Unavailable Juvenal Blake MD Unavailable Unavailable Juvenal Blake MD Unavailable Unavailable Juvenal Blake MD Unavailable Unavailable Juvenal Blake MD Unavailable Unavailable Juvenal Blake MD Unavailable Unavailable Juvenal Blake MD Unavailable Unavailable Juvenal Blake MD Unavailable Unavailable Juvenal Blake MD Unavailable Unavailable Juvenal Blake MD Unavailable Unavailable Juvenal Blake MD Unavailable Unavailable Juvenal Blake MD Unavailable Unavailable Juvenal Blake MD Unavailable Unavailable Juvenal Blake MD Unavailable Unavailable Juvenal Blake MD Unavailable Unavailable Juvenal Blake MD Unavailable Unavailable Juvenal Blake MD Unavailable Unavailable Hayden, O Santo SCALES Unavailable Unavailable Hayden, O Santo SCALES Unavailable Unavailable Hayden, O Santo SCALES Unavailable Unavailable Hayden, O Santo MD Unavailable Unavailable Hayden, O Santo SCALES Unavailable Unavailable Hayden, O Santo SCALES Unavailable Unavailable Hayden, O Santo SCALES Unavailable Unavailable Hayden, O Santo SCALES Unavailable Unavailable Hayden, O Santo SCALES Unavailable Unavailable Hayden, O Santo MD Unavailable Unavailable Hayden, O Santo SCALES Unavailable Unavailable Hayden, O Santo MD Unavailable Unavailable Dipesh, A Marcia DIETETIC ASSISTANT Unavailable Unavailable Dipesh, A Marcia DIETETIC ASSISTANT Unavailable Unavailable Dipesh, A Marcia DIETETIC ASSISTANT Unavailable Unavailable Dipesh, A Marcia DIETETIC ASSISTANT Unavailable Unavailable Dipesh, A Marcia DIETETIC ASSISTANT Unavailable Unavailable Dipesh, A Marcia DIETETIC ASSISTANT Unavailable Unavailable Dipesh, A Marcia DIETETIC ASSISTANT Unavailable Unavailable Dipesh, A Marcia DIETETIC ASSISTANT Unavailable Unavailable [place], A Marcia DIETETIC ASSISTANT Unavailable Unavailable [place], A Marcia DIETETIC ASSISTANT Unavailable Unavailable [place], A Marcia DIETETIC ASSISTANT Unavailable Unavailable [place], A Marcia DIETETIC ASSISTANT Unavailable Unavailable [place], A Marcia DIETETIC ASSISTANT Unavailable Unavailable [place], A Marcia DIETETIC ASSISTANT Unavailable Unavailable [place], A Marcia DIETETIC ASSISTANT Unavailable Unavailable [place], A Marcia DIETETIC ASSISTANT Unavailable Unavailable [place], A Marcia DIETETIC ASSISTANT Unavailable Unavailable Dipesh, A Marcia DIETETIC ASSISTANT Unavailable Unavailable Dipesh, A Marcia DIETETIC ASSISTANT Unavailable Unavailable Dipesh, A Marcia DIETETIC ASSISTANT Unavailable Unavailable [place], A Marcia DIETETIC ASSISTANT Unavailable Unavailable [place], A Marcia DIETETIC ASSISTANT Unavailable Unavailable Dipesh, A Marcia DIETETIC ASSISTANT Unavailable Unavailable Dipesh, A Marcia DIETETIC ASSISTANT Unavailable Unavailable Dipesh, A Marcia DIETETIC ASSISTANT Unavailable Unavailable Dipesh, A Marcia DIETETIC ASSISTANT Unavailable Unavailable Dipesh, A Marcia DIETETIC ASSISTANT Unavailable Unavailable Dipesh, A Marcia DIETETIC ASSISTANT Unavailable Unavailable Dipesh, A Marcia DIETETIC ASSISTANT Unavailable Unavailable Dipesh, A Marcia DIETETIC ASSISTANT Unavailable Unavailable Dipesh, A Marcia DIETETIC ASSISTANT Unavailable Unavailable Re-disclosure Warning The records that you are about to access may contain information from federally-assisted alcohol or drug abuse programs. If such information is present, then the following federally mandated warning applies: This information has been disclosed to you from records protected by federal confidentiality rules (42 CFR part 2). The federal rules prohibit you from making any further disclosure of this information unless further disclosure is expressly permitted by the written consent of the person to whom it pertains or as otherwise permitted by 42 CFR part 2. A general authorization for the release of medical or other information is NOT sufficient for this purpose. The Federal rules restrict any use of the information to criminally investigate or prosecute any alcohol or drug abuse patient.The records that you are about to access may contain highly sensitive health information, the redisclosure of which is protected by Article 27-F of the [facility] Public Health law. If you continue you may have access to information: Regarding HIV / AIDS; Provided by facilities licensed or operated by the [facility] Office of Mental Health; or Provided by the [facility] Office for People With Developmental Disabilities. If such information is present, then the following [facility] mandated warning applies: This information has been disclosed to you from confidential records which are protected by state law. State law prohibits you from making any further disclosure of this information without the specific written consent of the person to whom it pertains, or as otherwise permitted by law. Any unauthorized further disclosure in violation of state law may result in a fine or long-term sentence or both. A general authorization for the release of medical or other information is NOT sufficient authorization for further disc losure. Family History Family Member Name Family Member Gender Family Member Status Date o f Status Description Data Source(s) Unknown Female Problem MEDENT ([facility]) Unknown Unknown Problem [facility] ([facility], [facility]) Unknown Unknown Problem [facility] ([facility], [facility]) Unknown Female Problem [facility] ([facility]) Encounters Encounter Providers Location Date Indications Data Source(s ) Hemal Rogers MD: [address] [place] [address], Ph. Attender: Hemal Rogers MD [facility] Medical 11/17/2020 12:00:00 AM EDT [facility] ([facility]) Marcia Landon [facility]-: [address] [place] [address], Ph. Attender: Marcia Dipesh [facility] Medical 10/20/2020 12:00:00 AM EDT [facility] ([facility]) Marcia Landon [facility]-: [address] [place] [address], Ph. Attender: Marcia Landon [facility] Medical 10/20/2020 12:00:00 AM EDT [facility] ([facility]) Hemal Rogers MD: [address] [place] [address], Ph. Attender: Hemal Rogers MD [facility] Medical 10/14/2020 12:00:00 AM EDT [facility] ([facility]) Hemal Rogers MD: [address] [place] [address], Ph. Attender: Hemal Rogres MD [facility] Medical 10/14/2020 12:00:00 AM EDT [facility] ([facility]) Hemal Rogers MD: [address] [place] [address], Ph. Attender: Hemal Rogers MD [facility] Medical 10/14/2020 12:00:00 AM EDT [facility] ([facility]) Hemal Rogers MD: [address] [place] [address], Ph. Attender: Hemal Rogers MD [facility] Medical 08/18/2020 12:00:00 AM EDT [facility] ([facility]) Hemal Rogers MD: [address] [place] [address], Ph. Attender: Hemal Rogers MD [facility] Medical 08/18/2020 12:00:00 AM EDT [facility] ([facility]) Hemal Rogers MD: [address] [place] [address], Ph. Attender: Hemal Rogers MD [facility] Medical 08/18/2020 12:00:00 AM EDT [facility] ([facility]) Hmeal Rogers MD: [address] [place] [address], Ph. Attender: Hemal Rogers MD [facility] Medical 08/18/2020 12:00:00 AM EDT [facility] ([facility]) Unknown [address] [facility] [place] [address] 07/26/2020 12:00:00 AM EDT eCW1 ([facility]) Marcia Landon [facility]: [address] [place] [address], Ph. Attender: Marcia Landon [facility] Medical 2020 12:00:00 AM EDT [facility] ([facility]) Marcia Landon [facility]: [address], [place] [address], Ph. Attender: Marcia Landon [facility] Medical 2020 12:00:00 AM EDT [facility] ([facility]) [facility] [address], [place] [address], Ph. Attender: Marcia Landon [facility] Medical 2020 12:00:00 AM EDT [facility] ([facility]) Marcia Landon [facility]: [address], [place] [address], Ph. Attender: Marcia Landon [facility] Medical 2020 12:00:00 AM EDT [facility] ([facility]) Marcia Landon, [facility]-: [address], [place] [address], Ph. Attender: Marcia Landon [facility] Medical 2020 12:00:00 AM EDT [facility] ([facility]) Hemal Rogers MD: [address] [place] [address], Ph. Attender: Hemal Rogers MD [facility] Medical 07/14/2020 12:00:00 AM EDT [facility] ([facility]) Hemal Rogers MD: [address] [place] [address], Ph. Attender: Hemal Rogers MD [facility] Medical 07/14/2020 12:00:00 AM EDT [facility] ([facility]) Hemal Rogers MD: [address] [place] [address], Ph. Attender: Hemal Rogers MD [facility] Medical 07/14/2020 12:00:00 AM EDT [facility] ([facility]) Hemal Rogers MD: [address] [place] [address], Ph. Attender: Hemal Rogers MD [facility] Medical 07/14/2020 12:00:00 AM EDT [facility] ([facility]) Hemal Rogers MD: [address] [place] [address], Ph. Attender: Hemal Rogers MD [facility] Medical 07/14/2020 12:00:00 AM EDT [facility] ([facility]) Hemal Rogers MD: [address] [place] [address], Ph. Attender: Hemal Rogers MD [facility] Medical 07/14/2020 12:00:00 AM EDT [facility] ([facility]) Marcia Landon [facility]: [address], [place] [address], Ph. Attender: Marcia Landon [facility] Medical 01/06/2020 12:00:00 AM EST [facility] ([facility]) [facility]: [address], [place] [address], Ph. Attender: Marcia Landon [facility] Medical 01/06/2020 12:00:00 AM EST [facility] ([facility]) [facility]: [address], [place] [address], Ph. Attender: Marcia Landon [facility] Medical 01/06/2020 12:00:00 AM EST [facility] ([facility]) [facility] [address], [place] [address], Ph. Attender: Marcia Landon [facility] Medical 01/06/2020 12:00:00 AM EST [facility] ([facility]) [facility] GaitanPD[facility]: [address], [place] [address], Ph. Attender: Marcia Landon [facility] Medical 01/06/2020 12:00:00 AM EST [facility] ([facility]) Marcia Landon [facility]: [address], [place] [address], Ph. Attender: Marcia Landon [facility] Medical 01/06/2020 12:00:00 AM EST [facility] ([facility]) BARRON Gaitan-: [address] [place] [address], Ph. Attender: Marcia MART [facility] Medical 01/06/2020 12:00:00 AM EST [facility] ([facility]) Outpatient Referrer: Marcia MART 0 12:00:00 AM EST Encounter for screening mammogram for malignant neoplasm of breast [facility] Encounter for screening mammogram for ma lignant neoplasm of breast Hemal Rogers MD: [address] [place] [address], Ph. Attender: Hemal Rogers MD [facility] Medical 12/10/2019 12:00:00 AM EST [facility] ([facility]) Hemal Rogers MD: [address] [place] [address], Ph. Attender: Hemal Rogers MD [facility] Medical 12/10/2019 12:00:00 AM EST [facility] ([facility]) Hemal Rogers MD: [address] [place] [address], Ph. Attender: Hemal Rogers MD [facility] Medical 12/10/2019 12:00:00 AM EST [facility] ([facility]) Hemal Rogers MD: [address] [place] [address], Ph. Attender: Hemal Rogers MD [facility] Medical 12/10/2019 12:00:00 AM EST [facility] ([facility]) Hemal Rogers MD: [address] [place] [address], Ph. Attender: Hemal Rogers MD [facility] Medical 12/10/2019 12:00:00 AM EST [facility] ([facility]) Hemal Rogers MD: [address] [place] [address], Ph. Attender: Hemal Rogers MD [facility] Medical 12/10/2019 12:00:00 AM EST [facility] ([facility]) Hemal Rogers MD: [address] [place] [address], Ph. Attender: Hemal Rogers MD [facility] Medical 12/10/2019 12:00:00 AM EST [facility] ([facility]) Hemal Rogers MD: [address] [place] [address], Ph. Attender: Hemal Rogers MD [facility] Medical 12/10/2019 12:00:00 AM EST [facility] ([facility]) Outpatient Attender: BARRON MART 12/05/2019 04:23:00 P M EDT [facility] Outpatient Attender: Marcia MART 11/16/2019 06:1 0:01 PM EDT [facility] Outpatient Referrer: Marcia MART 11/13/2019 12:0 0:00 AM [facility] Outpatient Attender: Marcia MART 11/08/2019 07:5 6:01 PM EDT [facility] Outpatient Attender: BARRON HIGGINS 11/08/2019 07:56:00 P M EDT [facility] Outpatient Attender: Marcia MART 11/08/2019 12:3 8:01 PM EDT [facility] Outpatient Attender: Marcia HIGGINS 11/08/2019 11:1 5:02 AM EDT [facility] Outpatient Attender: BARRON HIGGINS 11/04/2019 08:51:02 A M EDT [facility] Outpatient Attender: BARRON HIGGINS 11/01/2019 12:02:06 A M EDT [facility] Outpatient Attender: BARRON HIGGINS 10/31/2019 08:21:01 A M EDT [facility] Outpatient Attender: BARRON Landon DIETETIC ASSISTANT FP 10/28/2019 02:24:03 P M EDT [facility] Outpatient Attender: Satno Blake MD Main office - [facility] 10/23/2019 08:30:00 AM EDT [facility]ENT ([facility]) Outpatient Attender: BARRON Ladnon DIETETIC ASSISTANT FP 10/16/2019 02:45:54 P M EDT [facility] Outpatient Attender: BARRON Landon DIETETIC ASSISTANT FP 10/09/2019 04:12:00 P M EDT [facility] Outpatient Attender: Marcia Landon DIETETIC ASSISTANT FP 10/09/2019 02:4 2:01 AM EDT [facility] Outpatient Attender: BARRON Landon DIETETIC ASSISTANT FP 10/06/2019 10:32:01 A M EDT [facility] Outpatient Attender: BARRON Landon DIETETIC ASSISTANT FP 10/06/2019 08:56:01 A M EDT [facility] Outpatient Attender: BARRON Landon DIETETIC ASSISTANT FP 10/06/2019 08:51:05 A M EDT [facility] Outpatient Attender: BARRON Landon DIETETIC ASSISTANT FP 10/04/2019 12:02:02 A M EDT [facility] Outpatient Attender: BARRON Landon DIETETIC ASSISTANT FP 10/03/2019 02:01:18 P M EDT [facility] Immunizations Vaccine Date Status Description Data Source(s) COVID-19, mRNA, LNP-S, PF, 100 mcg/0.5 mL dose 08/18/2020 09 :56:57 AM EDT completed .5 mL [facility] ([facility]) COVID-19, mRNA, LNP-S, PF, 100 mcg/0.5 mL dose 08/18/2020 09 :56:57 AM EDT completed .5 mL [facility] ([facility]) COVID-19, mRNA, LNP-S, PF, 100 mcg/0.5 mL dose 08/18/2020 09 :56:57 AM EDT completed .5 mL [facility] ([facility]) COVID-19, mRNA, LNP-S, PF, 100 mcg/0.5 mL dose 08/18/2020 09 :56:57 AM EDT completed .5 mL [facility] ([facility]) COVID-19 VACCINE Moderna 08/18/2020 12:00:00 AM EDT completed [place] Vaccine Series Complete: YESThis Data wa s Submitted to [facility] Via [employer]. COVID-19, mRNA, LNP-S, PF, 100 mcg/0.5 mL dose 2020 11 :27:59 AM EDT completed .5 mL [facility] ([facility]) COVID-19, mRNA, LNP-S, PF, 100 mcg/0.5 mL dose 2020 11 :27:59 AM EDT completed .5 mL [facility] ([facility]) COVID-19, mRNA, LNP-S, PF, 100 mcg/0.5 mL dose 2020 11 :27:59 AM EDT completed .5 mL [facility] ([facility]) COVID-19, mRNA, LNP-S, PF, 100 mcg/0.5 mL dose 2020 11 :27:59 AM EDT completed .5 mL [facility] ([facility]) COVID-19, mRNA, LNP-S, PF, 100 mcg/0.5 mL dose 2020 11 :27:59 AM EDT completed .5 mL [facility] ([facility]) COVID-19 VACCINE Moderna 2020 12:00:00 AM EDT completed [employer] Vaccine Series Complete: NOThis Data was Submitted to [facility] Via [employer]. New in 2011. IIV4 11/10/2019 12:00:00 AM EDT completed .5 mL [facility] ([facility]) New in 2011. IIV4 11/10/2019 12:00:00 AM EDT completed .5 mL [facility] ([facility]) New in 2011. IIV4 11/10/2019 12:00:00 AM EDT completed .5 mL [facility] ([facility]) New in 2011. IIV4 11/10/2019 12:00:00 AM EDT completed 0.5 mL [facility] ([facility]) New in 2011. IIV4 11/10/2019 12:00:00 AM EDT completed 0.5 mL [facility] ([facility]) New in 2011. IIV4 11/10/2019 12:00:00 AM EDT completed .5 mL [facility] ([facility]) Medications Medication Brand Name Start Date Product Form Dose Route Admi nistrative Instructions Pharmacy Instructions Status Indications Reaction Description Data Source(s) 1 % 11/19/2020 12:00:00 AM EDT drops,suspension 10 INSTILL 1 DROP IN THE RIGHT EYE FOUR TIMES A DAY - BEGIN AFTER SURGERY INSTILL 1 DROP IN THE RIGHT EYE FOUR TIMES A DAY - BEGIN AFTER SURGERY SOLD: 11/24/2020 [facility] moxifloxacin 5 MG/ML Ophthalmic Solution 0.5 % MOXIFLOXACIN HCL 11/19/2020 12:00:00 AM EDT drops 3 INSTILL 1 DROP I N THE RIGHT EYE FOUR TIMES A DAY - BEGIN 3 DAYS PRIOR TO SURGERY INSTILL 1 DROP IN THE RIGHT EYE FOUR JOHN ES A DAY - BEGIN 3 DAYS PRIOR TO SURGERY SOLD: 11/24/2020 [facility] 0.5 % 11/19/2020 12:00:00 AM EDT drops 10 INSTILL ONE DROP IN THE RIGHT EYE FOUR TIMES A DAY STARTING 3 DAYS PRIOR TO SURGERY INSTILL ONE DROP IN THE RIGHT EYE FOUR TIMES A DAY STARTING 3 DAYS PRIOR TO SURGERY SOLD: 11/24/2020 [facility] meloxicam 7.5 MG Oral Tablet MELOXICAM 09/20/2020 12:00:00 AM EDT tabl et 60 TAKE ONE TABLET BY MOUTH TWICE A DAY NEEDED TAKE ONE TABLET BY MOUTH TWICE A DAY NEEDED SOLD: 09/24/2020 [facility]berto [facility] meloxicam 7.5 MG Oral Tablet MELOXICAM 07/21/2020 12:00:00 AM EDT tabl et 60 TAKE ONE TABLET BY MOUTH TWO TIMES A DAY NEEDED TAKE ONE TABLET BY MOUTH TWO TIMES A DAY NEEDED SOLD: 07/21/2020 [facility] meloxicam 7.5 MG Oral Tablet MELOXICAM 07/21/2020 12:00:00 AM EDT tabl et 60 TAKE ONE TABLET BY MOUTH TWO TIMES A DAY NEEDED TAKE ONE TABLET BY MOUTH TWO TIMES A DAY NEEDED SOLD: 08/20/2020 [facility] 15 mg 10/06/2019 12:00:00 AM EDT tablet 30 TAKE ONE TABLET BY MOUTH EVERY DAY NEEDED FOR PAIN TAKE ONE TABLET BY MOUTH EVERY DAY NEEDED FOR PAIN SOLD: 10/09/2019 [facility] 40 mg 07/25/2019 12:00:00 AM EDT capsule,delayed release (DR/EC) 90 TAKE ONE CAPSULE BY MOUTH EVERY DAY TAKE ONE CAPSULE BY MOUTH EVERY DAY SOLD: 12/12/2019 [facility] 40 mg 06/04/2019 12:00:00 AM EDT tablet 90 TAKE ONE TABLET BY MOUTH EVERY DAY TAKE ONE TABLET BY MOUTH EVERY DAY SOLD: 12/12/2019 [facility] meloxicam 15 MG Oral Tablet meloxicam 15 mg tablet meloxicam 15 mg ta blet completed meloxicam 15 MG Oral Tablet [facility] ([facility]) Naproxen 500 MG Oral Tablet naproxen 500 mg tablet naproxen 500 mg ta blet completed naproxen 500 MG Oral Tablet [facility] ([facility]) meloxicam 15 MG Oral Tablet meloxicam 15 mg tablet meloxicam 15 mg ta blet completed meloxicam 15 MG Oral Tablet [facility] ([facility]) Naproxen 500 MG Oral Tablet naproxen 500 mg tablet naproxen 500 mg ta blet completed naproxen 500 MG Oral Tablet [facility] ([facility]) meloxicam 15 MG Oral Tablet meloxicam 15 mg tablet meloxicam 15 mg ta blet completed meloxicam 15 MG Oral Tablet [facility] ([facility]) meloxicam 15 MG Oral Tablet meloxicam 15 mg tablet meloxicam 15 mg ta blet completed meloxicam 15 MG Oral Tablet [facility] ([facility]) Levothyroxine Sodium 0.125 MG Oral Tablet levothyroxin e 125 mcg tablet levothyroxine 125 mcg tablet completed levothyroxine sodium 0.125 MG Oral Tablet [facility] ([facility]) meloxicam 15 MG Oral Tablet meloxicam 15 mg tablet meloxicam 15 mg ta blet completed meloxicam 15 MG Oral Tablet [facility] ([facility]) meloxicam 15 MG Oral Tablet meloxicam 15 mg tablet meloxicam 15 mg ta blet completed meloxicam 15 MG Oral Tablet [facility] ([facility]) meloxicam 15 MG Oral Tablet meloxicam 15 mg tablet meloxicam 15 mg ta blet completed meloxicam 15 MG Oral Tablet [facility] ([facility]) Levothyroxine Sodium 0.125 MG Oral Tablet levothyroxin e 125 mcg tablet levothyroxine 125 mcg tablet completed levothyroxine sodium 0.125 MG Oral Tablet [facility] ([facility]) Insurance Providers Payer name Policy type / Coverage type Policy ID Covered green party ID Covered green party's relationship to hinojosa Policy [place] Plan Information Medicare S [id number] S [id number] A Excellus BCYO O [id number] S [id number] [id number] Medicare S [id number] S [id number] A Wellcare P [id number] S [id number] Wellcare P [id number] S [id number] Medicare S [id number] S [id number] A Medicare S [id number] S [id number] Wellcare P [id number] S [id number] WELLCARE MEDICARE HMO G [id number] Self [id number] Wellcare P [id number] S [id number] WELLCARE MEDICARE HMO G [id number] Self [id number] Wellcare P [id number] S [id number] Wellcare P [id number] S [id number] HUMANA H [id number] Self [id number] Wellcare P [id number] S [id number] HUMANA H [id number] Self [id number] HUMANA MEDICARE ADVANTAGE G [id number] Self [id number] [employer] Plans P [id number] S [id number] Medicare S [id number] S [id number] Todays Options Medigap Part B [id number] Self [id number] Wellcare Commercial [id number] Self [id number] MEDICARE [id number] SP [id number] Todays Options Medigap Part B [id number] Self [id number] Wellcare Commercial [id number] Self [id number] TODAYS OPTIONS [id number] SP [id number] Today's Option P [id number] S [id number] WELLCARE O [id number] S [id number] Wellcare Commercial [id number] Self [id number] Todays Options Commercial [id number] Self [id number] TODAYS OPTIONS/[place] O [id number] S [id number] Todays Options Commercial [id number] Self [id number] TODAYS OPTIONS [id number] SP [id number] MEDICARE BLUE PPO 306 [id number] SP [id number] MEDICARE BLUE PPO 306 [id number] SP [id number] MEDICARE [id number] SP [id number] A BCBS [place] PPO 302/307 [id number] SP [id number] Medicare Natl Gov't Servi Medigap Part B [id number] Self BCBS/Blue Card Commercial .[id number] Self EXCELLUS BCBS B [id number] S VYM [id number] [place] Prog-Today's Opt Commercial [id number] Self MEDICARE BLUE PPO 306 [id number] SP [id number] Today's Option P [id number] S [id number] EXCELLUS BCBS P [id number] S [id number] [id number] MEDICARE COMPLETE [id number] SP [id number] HUMANA GOLD [id number] SP [id number] HUMANA GOLD [id number] SP [id number] Humana Health Plans P [id number] S [id number] WELLCARE [id number] SP [id number] Medicare S [id number] S [id number] Self Pay P [id number] S [id number] Wellcare P [id number] S [id number] WELLCARE O [id number] S [id number] WELLCARE [id number] SP [id number] Todays Options Medigap Part B [id number] Self [id number] Wellcare Commercial [id number] Self [id number] ANSI-Medicare Part B [id number] ANSI-Health Maintenance Organization (HM O) [id number] ANSI-Health Maintenance Organization (HM O) [id number] ANSI-Medicare Part B [id number] ANSI-Medicare Part B [id number] ANSI-Health Maintenance Organization (HM O) [id number] MEDICARE [id number] Problems, Conditions, and Diagnoses Code Display Name Description Problem Type Effective Dates Data Source(s) Z12.31 Encounter for screening mammogram for ma lignant neoplasm of breast Encounter for screening mammogram for malignant neoplasm of breast Diagnosis 01/05/2020 02:11:24 PM [facility] [id number] Cataract Cataract Problem 11/17/2020 12:00:00 AM ED T [facility] ([facility]) [id number] Finding of esophagus Finding of Esophagus Problem 11/20/2019 04:26:37 PM EDT [facility] ([facility]) [id number] SNOMED CT Concept SNOMED CT Concept Problem 11/19 04:26:37 PM EDT [facility] ([facility]) [id number] Depressive disorder Depressive Disorder Problem 1 04:26:37 PM EDT [facility] ([facility]) [id number] Finding of esophagus Finding of Esophagus Problem 11/20/2019 04:26:37 PM EDT [facility] ([facility]) [id number] SNOMED CT Concept SNOMED CT Concept Problem 11/19 04:26:37 PM EDT [facility] ([facility]) 96873817 Depressive disorder Depressive Disorder Problem 1 04:26:37 PM EDT [facility] ([facility]) [id number] Finding of esophagus Finding of Esophagus Problem 11/20/2019 04:26:37 PM EDT [facility] ([facility]) 247269457 SNOMED CT Concept SNOMED CT Concept Problem 11/19 04:26:37 PM EDT [facility] ([facility]) 14585243 Depressive disorder Depressive Disorder Problem 1 04:26:37 PM EDT [facility] ([facility]) 800804906 Finding of esophagus Finding of Esophagus Problem 11/20/2019 04:26:37 PM EDT [facility] ([facility]) [id number] SNOMED CT Concept SNOMED CT Concept Problem 11/19 04:26:37 PM EDT [facility] ([facility]) 77658978 Depressive disorder Depressive Disorder Problem 1 04:26:37 PM EDT [facility] ([facility]) 077227676 Finding of esophagus Finding of Esophagus Problem 11/20/2019 04:26:37 PM EDT [facility] ([facility]) 250969934 SNOMED CT Concept SNOMED CT Concept Problem 11/19 04:26:37 PM EDT [facility] ([facility]) 01393526 Depressive disorder Depressive Disorder Problem 1 04:26:37 PM EDT [facility] ([facility]) 064595562 Finding of esophagus Finding of Esophagus Problem 11/20/2019 04:26:37 PM EDT [facility] ([facility]) 614574232 SNOMED CT Concept SNOMED CT Concept Problem 11/19 04:26:37 PM EDT [facility] ([facility]) 55062783 Depressive disorder Depressive Disorder Problem 1 04:26:37 PM EDT [facility] ([facility]) 425477593 Finding of esophagus Finding of Esophagus Problem 11/20/2019 04:26:37 PM EDT [facility] ([facility]) 451281460 SNOMED CT Concept SNOMED CT Concept Problem 11/19 04:26:37 PM EDT [facility] ([facility]) 35038767 Depressive disorder Depressive Disorder Problem 1 04:26:37 PM EDT [facility] ([facility]) [id number] Finding of esophagus Finding of Esophagus Problem 11/20/2019 04:26:37 PM EDT [facility] ([facility]) 442419515 SNOMED CT Concept SNOMED CT Concept Problem 11/19 04:26:37 PM EDT [facility] ([facility]) 34748325 Depressive disorder Depressive Disorder Problem 1 04:26:37 PM EDT [facility] ([facility]) V76.12 Encounter for screening mammogram for ma lignant neoplasm of breast Encounter for screening mammogram for malignant neoplasm of breast 10/06/2019 10:31:25 AM EDT [facility] F17.200 Nicotine dependence, unspecified, uncomp licated Nicotine dependence, unspecified, uncomplicated 10/06/2019 10:31:25 AM EDT [facility] 780.93 Poor short-term memory Poor short-term memory 10/06/2019 10:31:25 AM EDT [facility] [id number] Memory finding Memory Finding Problem 10/06/2019 12:00: 00 AM EDT [facility] ([facility]) 97760025 Screening mammography Screening Mammography Problem 10/06/2019 12:00:00 AM EDT [facility] ([facility]) 271313674 Memory finding Memory Finding Problem 10/06/2019 12:00: 00 AM EDT [place] ([facility]) 97619857 Screening mammography Screening Mammography Problem 10/06/2019 12:00:00 AM EDT [facility] ([facility]) [id number] Memory finding Memory Finding Problem 10/06/2019 12:00: 00 AM EDT [place] ([facility]) 73303177 Screening mammography Screening Mammography Problem 10/06/2019 12:00:00 AM EDT [facility] ([facility]) 362018655 Memory finding Memory Finding Problem 10/06/2019 12:00: 00 AM EDT [facility] ([facility]) 46631081 Screening mammography Screening Mammography Problem 10/06/2019 12:00:00 AM EDT [facility] ([facility]) 491988364 Memory finding Memory Finding Problem 10/06/2019 12:00: 00 AM EDT [facility] ([facility]) 40023535 Screening mammography Screening Mammography Problem 10/06/2019 12:00:00 AM EDT [facility] ([facility]) 589609853 Memory finding Memory Finding Problem 10/06/2019 12:00: 00 AM EDT [facility] ([facility]) 60923324 Screening mammography Screening Mammography Problem 10/06/2019 12:00:00 AM EDT [facility] ([facility]) 971853402 Memory finding Memory Finding Problem 10/06/2019 12:00: 00 AM EDT [facility] ([facility]) 23510875 Screening mammography Screening Mammography Problem 10/06/2019 12:00:00 AM EDT [facility] ([facility]) 512837424 Memory finding Memory Finding Problem 10/06/2019 12:00: 00 AM EDT [place] ([facility]) 14276642 Screening mammography Screening Mammography Problem 10/06/2019 12:00:00 AM EDT [facility] ([facility]) [id number] Poor short-term memory Poor short-term memory Problem 10/06/2019 12:00:00 AM EDT [facility] ([facility]) 65747108 Screening mammography Screening mammography Problem 10/06/2019 12:00:00 AM EDT [facility] ([facility]) Surgeries/Procedures Procedure Description Date Indications Data Source(s) DEXA, axial skeleton + vertebral fracture assessment 07/21/2020 12:00:00 AM EDT [facility]) Magnetic Resonance Angiogtaphy Head W/O Contrast Material(S) 11/27/2019 12:00:00 AM EDT [facility] ([facility]) Magnetic Resonance Angiogtaphy Head W/O Contrast Material(S) 11/27/2019 12:00:00 AM EDT [facility] ([facility]) Magnetic Resonance Angiography Neck W/O Contrast Materials 11/27/2019 12:00:00 AM EDT [facility] ([facility]) Magnetic Resonance Angiography Neck W/O Contrast Materials 11/27/2019 12:00:00 AM EDT [facility] ([facility]) MRI BRAIN BRAIN STEM W/O CONTRAST MATERIAL 11/27/2019 12:00:00 AM EDT [facility] ([facility]) MRI BRAIN BRAIN STEM W/O CONTRAST MATERIAL 11/27/2019 12:00:00 AM EDT [facility] ([facility]) Results ID Date Data Source [id number] 10/14/2020 09:22:00 AM EDT [place] ([facility]) Name Value Range Interpretation Code Description Data Xin rce(s) Supporting Document(s) Thyroxine (T4) free [Mass/volume] in Serum or Plasma 1.6 NG/dL 0 .8-1.8 T4, Free [place] ([facility]) Thyrotropin [Units/volume] in Serum or Plasma 0.10 mIU/L 0. 40-4.50 Below low normal Tsh [facility] ([facility]) ID Date Data Source [id number] 10/14/2020 09:22:00 AM EDT [facility] Name Value Range Interpretation Code Description Data Xin rce(s) Supporting Document(s) Thyrotropin [Units/volume] in Serum or Plasma 0.10 mIU/L 0. 40-4.50 Below low normal Tsh [facility] ([facility]) Thyroxine (T4) free [Mass/volume] in Serum or Plasma 1.6 NG/dL 0 .8-1.8 T4, Free [facility] ([facility]) ID Date Data Source [id number] 2020 11:26:00 AM EDT [facility] Name Value Range Interpretation Code Description Data Xin rce(s) Supporting Document(s) Thyrotropin [Units/volume] in Serum or Plasma 0.04 mIU/L 0. 40-4.50 Below low normal Tsh [facility] ([facility]) Thyroxine (T4) free [Mass/volume] in Serum or Plasma 1.7 NG/dL 0 .8-1.8 T4, Free [facility] ([facility]) ID Date Data Source [id number] 2020 11:26:00 AM EDT [facility] ([facility]) Name Value Range Interpretation Code Description Data Xin rce(s) Supporting Document(s) Thyrotropin [Units/volume] in Serum or Plasma 0.04 mIU/L 0. 40-4.50 Below low normal Tsh [facility] ([facility]) Thyroxine (T4) free [Mass/volume] in Serum or Plasma 1.7 NG/dL 0 .8-1.8 T4, Free [facility] ([facility]) ID Date Data Source [id number] 2020 11:26:00 AM EDT [place] ([facility]) Name Value Range Interpretation Code Description Data Xin rce(s) Supporting Document(s) Thyroxine (T4) free [Mass/volume] in Serum or Plasma 1.7 NG/dL 0 .8-1.8 T4, Free [facility] ([facility]) Thyrotropin [Units/volume] in Serum or Plasma 0.04 mIU/L 0. 40-4.50 Below low normal Tsh [place] ([facility]) ID Date Data Source [id number] 2020 11:26:00 AM EDT [facility] Name Value Range Interpretation Code Description Data Xin rce(s) Supporting Document(s) Thyroxine (T4) free [Mass/volume] in Serum or Plasma 1.7 NG/dL 0 .8-1.8 T4, Free [place] ([facility]) Thyrotropin [Units/volume] in Serum or Plasma 0.04 mIU/L 0. 40-4.50 Below low normal Tsh [place] ([facility]) ID Date Data Source [id number] 07/14/2020 08:48:00 AM EDT [facility]) Name Value Range Interpretation Code Description Data Xin rce(s) Supporting Document(s) Cobalamin (Vitamin B12) [Mass/volume] in Serum or Plasma 434 pg/mL 200-1100 Vitamin B12 [place] ([facility]) Folate [Mass/volume] in Serum or Plasma >24.0 Folate, Serum [facility]) ID Date Data Source [id number] 07/14/2020 08:48:00 AM EDT [facility]) Name Value Range Interpretation Code Description Data Xin rce(s) Supporting Document(s) Leukocytes [#/volume] in Blood by Automated count 9.2 thousand/uL 3 .8-10.8 White Blood Cell Count [place] ([facility]) Hemoglobin [Mass/volume] in Blood 14.4 g/dL 11.7-15.5 He moglobin [facility] ([facility]) Erythrocyte mean corpuscular hemoglobin [Entitic mass] by Automated count 32.4 pg 27.0-33.0 Mch [facility] ([facility]) Erythrocytes [#/volume] in Blood by Automated count 4.44 million/uL 3.80-5.10 Red Blood Cell Count [facility] ([facility]) Erythrocyte mean corpuscular volume [Entitic volume] by Auto mated count 94.6 fL 80.0-100.0 Mcv [facility] ([facility]) Hematocrit [Volume Fraction] of Blood by Automated count 42.0 % 35.0-45.0 Hematocrit [facility] ([facility]) Platelets [#/volume] in Blood by Automated count 299 thousand/uL 14 0-400 Platelet Count [place] ([facility]) Platelet mean volume [Entitic volume] in Blood by Irvin-Judith 10.3 f L 7.5-12.5 Mpv [facility] ([facility]) Erythrocyte distribution width [Ratio] by Automated count 12.3 % 11.0-15.0 Rdw [facility] ([facility]) Erythrocyte mean corpuscular hemoglobin concentration [Mass/volume] by Automated count 34.3 g/dL 32.0-36.0 Mchc [facility] ([facility]) Eosinophils [#/volume] in Blood by Automated count 377 cells/uL 15- 500 Absolute Eosinophils [facility] ([facility]) Monocytes [#/volume] in Blood by Automated count 929 cells/uL 200-9 50 Absolute Monocytes [facility] ([facility]) Lymphocytes [#/volume] in Blood by Automated count 1794 cells/uL 85 0-3900 Absolute Lymphocytes [facility] ([facility]) Neutrophils [#/volume] in Blood by Automated count 6008 cells/uL 15 00-7800 Absolute Neutrophils [facility] ([facility]) Lymphocytes/100 leukocytes in Blood by Automated count 19.5 % 15-49 Lymphocytes [facility] ([facility]) Monocytes/100 leukocytes in Blood by Automated count 10.1 % 0-13 Monocytes [facility] ([facility]) Basophils [#/volume] in Blood by Automated count 92 cells/uL 0-200 Absolute Basophils [facility] ([facility]) Neutrophils/100 leukocytes in Blood by Automated count 65.3 % 38-80 Neutrophils [facility] ([facility]) Basophils/100 leukocytes in Blood by Automated count 1.0 % 0-2 Basophils [facility] ([facility]) Eosinophils/100 leukocytes in Blood by Automated count 4.1 % 0-8 Eosinophils [facility] ([facility]) ID Date Data Source [id number] 07/14/2020 08:48:00 AM EDT [facility] ([facility]) Name Value Range Interpretation Code Description Data Xin rce(s) Supporting Document(s) Bacteria identified in Urine by Culture Reflexive Urine Culture [place] ([facility]) ID Date Data Source [id number] 07/14/2020 08:48:00 AM EDT [place] ([facility]) Name Value Range Interpretation Code Description Data Xin rce(s) Supporting Document(s) Color of Urine yellow yellow Color [facility] ([facility]) Appearance of Urine clear clear Appearance [facility] ([facility]) Specific gravity of Urine by Test strip 1.001-1.035 Specific [place] [facility] ([facility]) pH of Urine by Test strip 5.0-8.0 Ph [facility] ([facility]) Glucose [Presence] in Urine by Test strip negative negative Glucose [facility] ([facility]) Hemoglobin [Presence] in Urine by Test strip negative negative Occult Blood [facility] ([facility]) Ketones [Presence] in Urine by Test strip negative negative Ketones [facility] ([facility]) Protein [Presence] in Urine by Test strip negative negative Protein [facility] ([facility]) Bilirubin.total [Presence] in Urine by Test strip negative negative Bilirubin [facility] ([facility]) Leukocytes [#/area] in Urine sediment by Microscopy high pow [place] field none seen < or = 5 Wbc [facility] ([facility]) Leukocyte esterase [Presence] in Urine by Test strip negative n egative Leukocyte Esterase [facility] ([facility]) Nitrite [Presence] in Urine by Test strip negative negative Nitrite [facility] ([facility]) Erythrocytes [#/area] in Urine sediment by Microscopy high power field none seen < or = 2 Rbc [facility] ([facility]) Hyaline casts [#/area] in Urine sediment by Microscopy low p ower field 0-5 none seen Abnormal (applies to non-numeric results) Hyaline Cast [facility] ([facility]) Epithelial cells.squamous [#/area] in Ur ine sediment by Microscopy high power field none seen < or = 5 Squamous Epithelial Cells AT [facility] ([facility]) Bacteria [#/area] in Urine sediment by Microscopy high power field none seen none seen Bacteria [facility] ([facility]) ID Date Data Source [id number] 07/14/2020 08:48:00 AM EDT [facility]) Name Value Range Interpretation Code Description Data Xin rce(s) Supporting Document(s) Glucose [Mass/volume] in Serum or Plasma 93 mg/dL 65-99 Glucose [place] ([facility]) Creatinine [Mass/volume] in Serum or Plasma 0.99 mg/dL 0.60 -0.93 Above high normal Creatinine [place] ([facility]) Glomerular filtration rate/1.73 sq M.pre dicted among non-blacks [Volume Rate/Area] in Serum, Plasma or Blood by Creatinine-based formula (CKD-EPI) 57 mL/min/1.73m2 > or = 60 Below low normal eGFR Non-afr. Ethiopian [facility] ( [facility]) Urea nitrogen [Mass/volume] in Serum or Plasma 11 mg/dL 7-25 [facility] Sodium [Moles/volume] in Serum or Plasma 139 mmol/L 135-146 Sodium [facility]) Urea nitrogen/Creatinine [Mass Ratio] in Serum or Plasma 11 (calc) 6-22 BUN/creatinine Ratio [facility]) Glomerular filtration rate/1.73 sq M.pre dicted among blacks [Volume Rate/Area] in Serum, Plasma or Blood by Creatinine-based formula (CKD-EPI) 66 mL/min/1.73m2 > or = 60 eGFR [place] ([facility]) Potassium [Moles/volume] in Serum or Plasma 4.4 mmol/L 3.5-5.3 Potassium [place] ([facility]) Chloride [Moles/volume] in Serum or Plasma 105 mmol/L 98-110 Chloride [facility] ([facility]) Carbon dioxide, total [Moles/volume] in Serum or Plasma 27 mmol/L 20-32 Carbon Dioxide [place] ([facility]) Calcium [Mass/volume] in Serum or Plasma 9.5 mg/dL 8.6-10.4 Calcium [place] ([facility]) Globulin [Mass/volume] in Serum by calculation 2.3 g/dL_(calc) 1.9- 3.7 Globulin [place] ([facility]) Albumin [Mass/volume] in Serum or Plasma 3.8 g/dL 3.6-5.1 Albumin [place] ([facility]) Protein [Mass/volume] in Serum or Plasma 6.1 g/dL 6.1-8.1 Protein, Total [place] ([facility]) Alkaline phosphatase [Enzymatic activity/volume] in Serum or Plasma 39 U/L 37-153 Alkaline Phosphatase [place] ([facility]) Albumin/Globulin [Mass Ratio] in Serum or Plasma 1.7 (calc) 1.0-2 .5 Albumin/globulin Ratio [place] ([facility]) Bilirubin.total [Mass/volume] in Serum or Plasma 0.5 mg/dL 0.2-1 .2 Bilirubin, Total [place] ([facility]) Aspartate aminotransferase [Enzymatic activity/volume] in Serum or Plasma 14 U/L 10-35 Ast [place] ([facility]) Alanine aminotransferase [Enzymatic activity/volume] in Seru m or Plasma 9 U/L 6-29 Alt [place] ([facility]) ID Date Data Source [id number] 07/14/2020 08:48:00 AM EDT [facility]) Name Value Range Interpretation Code Description Data Xin rce(s) Supporting Document(s) Thyrotropin [Units/volume] in Serum or Plasma 0.07 mIU/L 0. 40-4.50 Below low normal Tsh [place] ([facility]) Thyroxine (T4) free [Mass/volume] in Serum or Plasma 1.8 NG/dL 0 .8-1.8 T4, Free [place] ([facility]) ID Date Data Source [id number] 07/14/2020 08:48:00 AM EDT [place] ([facility]) Name Value Range Interpretation Code Description Data Xin rce(s) Supporting Document(s) Cholesterol in HDL [Mass/volume] in Serum or Plasma 40 mg/dL > or = 50 Below low normal HDL Cholesterol [place] ([facility]) Cholesterol [Mass/volume] in Serum or Plasma 128 mg/dL <200 Cholesterol, Total [place] ([facility]) Cholesterol.total/Cholesterol in HDL [Mass Ratio] in Serum o r Plasma 3.2 calc <5.0 Chol/hdlc Ratio [place] ([facility]) Triglyceride [Mass/volume] in Serum or Plasma 92 mg/dL <150 Triglycerides [facility] ([facility]) Cholesterol in LDL [Mass/volume] in Serum or Plasma by calculation 70 mg/dL_(calc) <100 LDL-cholesterol [facility] ([facility]) Cholesterol non HDL [Mass/volume] in Serum or Plasma 88 mg/dL_(calc ) <130 Non HDL Cholesterol [place] ([facility]) ID Date Data Source [id number] 07/14/2020 08:48:00 AM EDT [place] ([facility]) Name Value Range Interpretation Code Description Data Xin rce(s) Supporting Document(s) Iron binding capacity [Mass/volume] in Serum or Plasma 315 m cg/dL_(calc) 250-450 Iron Binding Capacity [facility] ([facility]) Iron [Mass/volume] in Serum or Plasma 140 mcg/dL 45-160 Iron, Total [place] ([facility]) Iron saturation [Mass Fraction] in Serum or Plasma 44 %_(calc) 16- 45 % Saturation [place] ([facility]) Ferritin [Mass/volume] in Serum or Plasma 29 NG/mL 16-288 Ferritin [place] ([facility]) ID Date Data Source [id number] 07/14/2020 08:48:00 AM EDT [place] ([facility]) Name Value Range Interpretation Code Description Data Xin rce(s) Supporting Document(s) Cobalamin (Vitamin B12) [Mass/volume] in Serum or Plasma 434 pg/mL 200-1100 Vitamin B12 [place] ([facility]) Folate [Mass/volume] in Serum or Plasma >24.0 Folate, Serum [place] ([facility]) ID Date Data Source [id number] 07/14/2020 08:48:00 AM EDT [place] ([facility]) Name Value Range Interpretation Code Description Data Xin rce(s) Supporting Document(s) Erythrocytes [#/volume] in Blood by Automated count 4.44 million/uL 3.80-5.10 Red Blood Cell Count [place] ([facility]) Leukocytes [#/volume] in Blood by Automated count 9.2 thousand/uL 3 .8-10.8 White Blood Cell Count [place] ([facility]) Hemoglobin [Mass/volume] in Blood 14.4 g/dL 11.7-15.5 He moglobin [place] ([facility]) Erythrocyte mean corpuscular hemoglobin concentration [Mass/volume] by Automated count 34.3 g/dL 32.0-36.0 Mchc [place] ([facility]) Erythrocyte mean corpuscular hemoglobin [Entitic mass] by Automated count 32.4 pg 27.0-33.0 Mch [place] ([facility]) Erythrocyte mean corpuscular volume [Entitic volume] by Auto mated count 94.6 fL 80.0-100.0 Mcv [place] ([facility]) Hematocrit [Volume Fraction] of Blood by Automated count 42.0 % 35.0-45.0 Hematocrit [place] ([facility]) Erythrocyte distribution width [Ratio] by Automated count 12.3 % 11.0-15.0 Rdw [place] ([facility]) Platelet mean volume [Entitic volume] in Blood by Sean 10.3 f L 7.5-12.5 Mpv [place] ([facility]) Neutrophils [#/volume] in Blood by Automated count 6008 cells/uL 15 00-7800 Absolute Neutrophils [place] ([facility]) Platelets [#/volume] in Blood by Automated count 299 thousand/uL 14 0-400 Platelet Count [place] ([facility]) Lymphocytes [#/volume] in Blood by Automated count 1794 cells/uL 85 0-3900 Absolute Lymphocytes [place] ([facility]) Eosinophils [#/volume] in Blood by Automated count 377 cells/uL 15- 500 Absolute Eosinophils [place] ([facility]) Monocytes [#/volume] in Blood by Automated count 929 cells/uL 200-9 50 Absolute Monocytes [place] ([facility]) Neutrophils/100 leukocytes in Blood by Automated count 65.3 % 38-80 Neutrophils [place] ([facility]) Basophils [#/volume] in Blood by Automated count 92 cells/uL 0-200 Absolute Basophils [place] ([facility]) Lymphocytes/100 leukocytes in Blood by Automated count 19.5 % 15-49 Lymphocytes [place] ([facility]) Monocytes/100 leukocytes in Blood by Automated count 10.1 % 0-13 Monocytes [place] ([facility]) Eosinophils/100 leukocytes in Blood by Automated count 4.1 % 0-8 Eosinophils [place] ([facility]) Basophils/100 leukocytes in Blood by Automated count 1.0 % 0-2 Basophils [place] ([facility]) ID Date Data Source [id number] 07/14/2020 08:48:00 AM EDT [place] ([facility]) Name Value Range Interpretation Code Description Data Xin rce(s) Supporting Document(s) Bacteria identified in Urine by Culture Reflexive Urine Culture [place] ([facility]) ID Date Data Source [id number] 07/14/2020 08:48:00 AM EDT [place] ([facility]) Name Value Range Interpretation Code Description Data Xin rce(s) Supporting Document(s) Color of Urine yellow yellow Color [place] (No [facility]) Specific gravity of Urine by Test strip 1.001-1.035 Specific [place] ([facility]) pH of Urine by Test strip 5.0-8.0 Ph [place] ([facility]) Appearance of Urine clear clear Appearance ATHEN A ([facility]) Glucose [Presence] in Urine by Test strip negative negative Glucose [place] ([facility]) Bilirubin.total [Presence] in Urine by Test strip negative negative Bilirubin [place] ([facility]) Protein [Presence] in Urine by Test strip negative negative Protein [place] ([facility]) Ketones [Presence] in Urine by Test strip negative negative Ketones [place] ([facility]) Hemoglobin [Presence] in Urine by Test strip negative negative Occult Blood [place] ([facility]) Epithelial cells.squamous [#/area] in Ur ine sediment by Microscopy high power field none seen < or = 5 Squamous Epithelial Cells AT [facility] ([facility]) Erythrocytes [#/area] in Urine sediment by Microscopy high power field none seen < or = 2 Rbc [place] ([facility]) Leukocytes [#/area] in Urine sediment by Microscopy high [place] field none seen < or = 5 Wbc [place] ([facility]) Leukocyte esterase [Presence] in Urine by Test strip negative n egative Leukocyte Esterase [place] ([facility]) Nitrite [Presence] in Urine by Test strip negative negative Nitrite [place] ([facility]) Hyaline casts [#/area] in Urine sediment by Microscopy low p ower field 0-5 none seen Abnormal (applies to non-numeric results) Hyaline Cast [place] ([facility]) Bacteria [#/area] in Urine sediment by Microscopy high power field none seen none seen Bacteria [place] ([facility]) ID Date Data Source [id number] 07/14/2020 08:48:00 AM EDT [place] ([facility]) Name Value Range Interpretation Code Description Data Xin rce(s) Supporting Document(s) Creatinine [Mass/volume] in Serum or Plasma 0.99 mg/dL 0.60 -0.93 Above high normal Creatinine [facility] ([facility]) Glomerular filtration rate/1.73 sq M.pre dicted among non-blacks [Volume Rate/Area] in Serum, Plasma or Blood by Creatinine-based formula (CKD-EPI) 57 mL/min/1.73m2 > or = 60 Below low normal eGFR Non-afr. Ethiopian [place] ( [facility]) Urea nitrogen [Mass/volume] in Serum or Plasma 11 mg/dL 7-25 Urea Nitrogen (BUN) [place] ([facility]) Glucose [Mass/volume] in Serum or Plasma 93 mg/dL 65-99 Glucose [place] ([facility]) Urea nitrogen/Creatinine [Mass Ratio] in Serum or Plasma 11 (calc) 6-22 BUN/creatinine Ratio [place] ([facility]) Glomerular filtration rate/1.73 sq M.pre dicted among blacks [Volume Rate/Area] in Serum, Plasma or Blood by Creatinine-based formula (CKD-EPI) 66 mL/min/1.73m2 > or = 60 eGFR [place] ([facility]) Potassium [Moles/volume] in Serum or Plasma 4.4 mmol/L 3.5-5.3 Potassium [place] ([facility]) Sodium [Moles/volume] in Serum or Plasma 139 mmol/L 135-146 Sodium [facility]) Carbon dioxide, total [Moles/volume] in Serum or Plasma 27 mmol/L 20-32 Carbon Dioxide [place] ([facility]) Protein [Mass/volume] in Serum or Plasma 6.1 g/dL 6.1-8.1 [facility], [facility] Calcium [Mass/volume] in Serum or Plasma 9.5 mg/dL 8.6-10.4 Calcium [facility]) Chloride [Moles/volume] in Serum or Plasma 105 mmol/L 98-110 Chloride [facility]) Globulin [Mass/volume] in Serum by calculation 2.3 g/dL_(calc) 1.9- 3.7 Globulin [facility]) Bilirubin.total [Mass/volume] in Serum or Plasma 0.5 mg/dL 0.2-1 .2 Bilirubin, Total [facility]) Albumin [Mass/volume] in Serum or Plasma 3.8 g/dL 3.6-5.1 Albumin [place] ([facility]) Albumin/Globulin [Mass Ratio] in Serum or Plasma 1.7 (calc) 1.0-2 .5 Albumin/globulin Ratio [facility] ([facility]) Alkaline phosphatase [Enzymatic activity/volume] in Serum or Plasma 39 U/L 37-153 Alkaline Phosphatase [facility] ([facility]) Aspartate aminotransferase [Enzymatic activity/volume] in Serum or Plasma 14 U/L 10-35 Ast [facility] ([facility]) Alanine aminotransferase [Enzymatic activity/volume] in Seru m or Plasma 9 U/L 6-29 Alt [facility] ([facility]) ID Date Data Source [id number] 07/14/2020 08:48:00 AM EDT [place] ([facility]) Name Value Range Interpretation Code Description Data Xin rce(s) Supporting Document(s) Thyroxine (T4) free [Mass/volume] in Serum or Plasma 1.8 NG/dL 0 .8-1.8 T4, Free [place] ([facility]) Thyrotropin [Units/volume] in Serum or Plasma 0.07 mIU/L 0. 40-4.50 Below low normal Tsh [place] ([facility]) ID Date Data Source [id number] 07/14/2020 08:48:00 AM EDT [facility]) Name Value Range Interpretation Code Description Data Xin rce(s) Supporting Document(s) Cholesterol [Mass/volume] in Serum or Plasma 128 mg/dL <200 Cholesterol, Total [place] ([facility]) Triglyceride [Mass/volume] in Serum or Plasma 92 mg/dL <150 Triglycerides [facility] ([facility]) Cholesterol in LDL [Mass/volume] in Serum or Plasma by calculation 70 mg/dL_(calc) <100 LDL-cholesterol [facility] ([facility]) Cholesterol.total/Cholesterol in HDL [Mass Ratio] in Serum o r Plasma 3.2 calc <5.0 Chol/hdlc Ratio [facility] ([facility]) Cholesterol in HDL [Mass/volume] in Serum or Plasma 40 mg/dL > or = 50 Below low normal HDL Cholesterol [facility] ([facility]) Cholesterol non HDL [Mass/volume] in Serum or Plasma 88 mg/dL_(calc ) <130 Non HDL Cholesterol [facility] ([facility]) ID Date Data Source [id number] 07/14/2020 08:48:00 AM EDT [place] ([facility]) Name Value Range Interpretation Code Description Data Xin rce(s) Supporting Document(s) Iron [Mass/volume] in Serum or Plasma 140 mcg/dL 45-160 Iron, Total [facility] ([facility]) Iron binding capacity [Mass/volume] in Serum or Plasma 315 m cg/dL_(calc) 250-450 Iron Binding Capacity [facility] ([facility]) Iron saturation [Mass Fraction] in Serum or Plasma 44 %_(calc) 16- 45 % Saturation [facility] ([facility]) Ferritin [Mass/volume] in Serum or Plasma 29 NG/mL 16-288 Ferritin [facility] ([facility]) ID Date Data Source [id number] 07/14/2020 08:48:00 AM EDT [place] ([facility]) Name Value Range Interpretation Code Description Data Xin rce(s) Supporting Document(s) Folate [Mass/volume] in Serum or Plasma >24.0 Folate, Serum [facility] ([facility]) Cobalamin (Vitamin B12) [Mass/volume] in Serum or Plasma 434 pg/mL 200-1100 Vitamin B12 [facility] ([facility]) ID Date Data Source [id number] 07/14/2020 08:48:00 AM [facility] Name Value Range Interpretation Code Description Data Xin rce(s) Supporting Document(s) Leukocytes [#/volume] in Blood by Automated count 9.2 thousand/uL 3 .8-10.8 White Blood Cell Count [facility] ([facility]) Erythrocytes [#/volume] in Blood by Automated count 4.44 million/uL 3.80-5.10 Red Blood Cell Count [facility] ([facility]) Hemoglobin [Mass/volume] in Blood 14.4 g/dL 11.7-15.5 He moglobin [facility] ([facility]) Hematocrit [Volume Fraction] of Blood by Automated count 42.0 % 35.0-45.0 Hematocrit [facility] ([facility]) Erythrocyte mean corpuscular hemoglobin concentration [Mass/volume] by Automated count 34.3 g/dL 32.0-36.0 Mchc [place] ([facility]) Erythrocyte mean corpuscular volume [Entitic volume] by Auto mated count 94.6 fL 80.0-100.0 Mcv [place] ([facility]) Erythrocyte mean corpuscular hemoglobin [Entitic mass] by Automated count 32.4 pg 27.0-33.0 Mch [place] ([facility]) Neutrophils [#/volume] in Blood by Automated count 6008 cells/uL 15 00-7800 Absolute Neutrophils [facility] ([facility]) Erythrocyte distribution width [Ratio] by Automated count 12.3 % 11.0-15.0 Rdw [place] ([facility]) Platelet mean volume [Entitic volume] in Blood by Sean 10.3 f L 7.5-12.5 Mpv [place] ([facility]) Platelets [#/volume] in Blood by Automated count 299 thousand/uL 14 0-400 Platelet Count [facility] ([facility]) Eosinophils [#/volume] in Blood by Automated count 377 cells/uL 15- 500 Absolute Eosinophils [facility] ([facility]) Basophils [#/volume] in Blood by Automated count 92 cells/uL 0-200 Absolute Basophils [facility] ([facility]) Monocytes [#/volume] in Blood by Automated count 929 cells/uL 200-9 50 Absolute Monocytes [facility] ([facility]) Lymphocytes [#/volume] in Blood by Automated count 1794 cells/uL 85 0-3900 Absolute Lymphocytes [facility] ([facility]) Eosinophils/100 leukocytes in Blood by Automated count 4.1 % 0-8 Eosinophils [facility] ([facility]) Neutrophils/100 leukocytes in Blood by Automated count 65.3 % 38-80 Neutrophils [facility] ([facility]) Lymphocytes/100 leukocytes in Blood by Automated count 19.5 % 15-49 Lymphocytes [place] ([facility]) Monocytes/100 leukocytes in Blood by Automated count 10.1 % 0-13 Monocytes [facility] ([facility]) Basophils/100 leukocytes in Blood by Automated count 1.0 % 0-2 Basophils [place] ([facility]) ID Date Data Source [id number] 07/14/2020 08:48:00 AM EDT [place] ([facility]) Name Value Range Interpretation Code Description Data Xin rce(s) Supporting Document(s) Bacteria identified in Urine by Culture [facility]ive [facility] ID Date Data Source [id number] 07/14/2020 08:48:00 AM EDT [place] ([facility]) Name Value Range Interpretation Code Description Data Xin rce(s) Supporting Document(s) Appearance of Urine clear clear Appearance ATHEN A ([facility]) Color of Urine yellow yellow Color [facility] ([facility]) Bilirubin.total [Presence] in Urine by Test strip negative negative Bilirubin [place] ([facility]) pH of Urine by Test strip 5.0-8.0 Ph [place] ([facility]) Glucose [Presence] in Urine by Test strip negative negative Glucose [place] ([facility]) Specific gravity of Urine by Test strip 1.001-1.035 Specific [place] ([facility]) Protein [Presence] in Urine by Test strip negative negative Protein [place] ([facility]) Ketones [Presence] in Urine by Test strip negative negative Ketones [facility] ([facility]) Nitrite [Presence] in Urine by Test strip negative negative Nitrite [facility] ([facility]) Hemoglobin [Presence] in Urine by Test strip negative negative Occult Blood [place] ([facility]) Leukocyte esterase [Presence] in Urine by Test strip negative n egative Leukocyte Esterase [facility] ([facility]) Leukocytes [#/area] in Urine sediment by Microscopy [place] none seen < or = 5 Wbc [place] ([facility]) Epithelial cells.squamous [#/area] in Ur ine sediment by Microscopy high power field none seen < or = 5 Squamous Epithelial Cells AT [facility] ([facility]) Erythrocytes [#/area] in Urine sediment by Microscopy high power field none seen < or = 2 Rbc [facility] ([facility]) Hyaline casts [#/area] in Urine sediment by Microscopy low p ower field 0-5 none seen Abnormal (applies to non-numeric results) Hyaline Cast [facility] ([facility]) Bacteria [#/area] in Urine sediment by Microscopy high power field none seen none seen Bacteria [place] ([facility]) ID Date Data Source [id number] 07/14/2020 08:48:00 AM EDT [place] ([facility]) Name Value Range Interpretation Code Description Data Xin rce(s) Supporting Document(s) Glucose [Mass/volume] in Serum or Plasma 93 mg/dL 65-99 Glucose [place] ([facility]) Urea nitrogen [Mass/volume] in Serum or Plasma 11 mg/dL 7-25 Urea Nitrogen (BUN) [facility] ([facility]) Creatinine [Mass/volume] in Serum or Plasma 0.99 mg/dL 0.60 -0.93 Above high normal Creatinine [place] ([facility]) Glomerular filtration rate/1.73 sq M.pre dicted among non-blacks [Volume Rate/Area] in Serum, Plasma or Blood by Creatinine-based formula (CKD-EPI) 57 mL/min/1.73m2 > or = 60 Below low normal eGFR Non-afr. Ethiopian [place] ( [facility]) Glomerular filtration rate/1.73 sq M.pre dicted among blacks [Volume Rate/Area] in Serum, Plasma or Blood by Creatinine-based formula (CKD-EPI) 66 mL/min/1.73m2 > or = 60 eGFR [facility] ([facility]) Sodium [Moles/volume] in Serum or Plasma 139 mmol/L 135-146 Sodium [place] ([facility]) Potassium [Moles/volume] in Serum or Plasma 4.4 mmol/L 3.5-5.3 Potassium [facility] ([facility]) Urea nitrogen/Creatinine [Mass Ratio] in Serum or Plasma 11 (calc) 6-22 BUN/creatinine Ratio [facility] ([facility]) Calcium [Mass/volume] in Serum or Plasma 9.5 mg/dL 8.6-10.4 Calcium [place] ([facility]) Carbon dioxide, total [Moles/volume] in Serum or Plasma 27 mmol/L 20-32 Carbon Dioxide [facility] ([facility]) Chloride [Moles/volume] in Serum or Plasma 105 mmol/L 98-110 Chloride [facility] ([facility]) Albumin [Mass/volume] in Serum or Plasma 3.8 g/dL 3.6-5.1 Albumin [place] ([facility]) Protein [Mass/volume] in Serum or Plasma 6.1 g/dL 6.1-8.1 Protein, Total [place] ([facility]) Globulin [Mass/volume] in Serum by calculation 2.3 g/dL_(calc) 1.9- 3.7 Globulin [place] ([facility]) Albumin/Globulin [Mass Ratio] in Serum or Plasma 1.7 (calc) 1.0-2 .5 Albumin/globulin Ratio [place] ([facility]) Alkaline phosphatase [Enzymatic activity/volume] in Serum or Plasma 39 U/L 37-153 Alkaline Phosphatase [place] ([facility]) Bilirubin.total [Mass/volume] in Serum or Plasma 0.5 mg/dL 0.2-1 .2 Bilirubin, Total [place] ([facility]) Aspartate aminotransferase [Enzymatic activity/volume] in Serum or Plasma 14 U/L 10-35 Ast [place] ([facility]) Alanine aminotransferase [Enzymatic activity/volume] in Seru m or Plasma 9 U/L 6-29 Alt [place] ([facility]) ID Date Data Source [id number] 07/14/2020 08:48:00 AM EDT [place] ([facility]) Name Value Range Interpretation Code Description Data Xin rce(s) Supporting Document(s) Thyrotropin [Units/volume] in Serum or Plasma 0.07 mIU/L 0. 40-4.50 Below low normal Tsh [place] ([facility]) Thyroxine (T4) free [Mass/volume] in Serum or Plasma 1.8 NG/dL 0 .8-1.8 T4, Free [place] ([facility]) ID Date Data Source [id number] 07/14/2020 08:48:00 AM EDT [place] ([facility]) Name Value Range Interpretation Code Description Data Xin rce(s) Supporting Document(s) Cholesterol in HDL [Mass/volume] in Serum or Plasma 40 mg/dL > or = 50 Below low normal HDL Cholesterol [place] ([facility]) Cholesterol [Mass/volume] in Serum or Plasma 128 mg/dL <200 Cholesterol, Total [place] ([facility]) Triglyceride [Mass/volume] in Serum or Plasma 92 mg/dL <150 Triglycerides [place] ([facility]) Cholesterol in LDL [Mass/volume] in Serum or Plasma by calculation 70 mg/dL_(calc) <100 LDL-cholesterol [place] ([facility]) Cholesterol.total/Cholesterol in HDL [Mass Ratio] in Serum o r Plasma 3.2 calc <5.0 Chol/hdlc Ratio [place] ([facility]) Cholesterol non HDL [Mass/volume] in Serum or Plasma 88 mg/dL_(calc ) <130 Non HDL Cholesterol [place] ([facility]) ID Date Data Source [id number] 07/14/2020 08:48:00 AM EDT [place] ([facility]) Name Value Range Interpretation Code Description Data Xin rce(s) Supporting Document(s) Iron [Mass/volume] in Serum or Plasma 140 mcg/dL 45-160 Iron, Total [place] ([facility]) Iron saturation [Mass Fraction] in Serum or Plasma 44 %_(calc) 16- 45 % Saturation [place] ([facility]) Iron binding capacity [Mass/volume] in Serum or Plasma 315 m cg/dL_(calc) 250-450 Iron Binding Capacity [place] ([facility]) Ferritin [Mass/volume] in Serum or Plasma 29 NG/mL 16-288 Ferritin [place] ([facility]) ID Date Data Source [id number] 07/14/2020 08:48:00 AM EDT [place] ([facility]) Name Value Range Interpretation Code Description Data Xin rce(s) Supporting Document(s) Cobalamin (Vitamin B12) [Mass/volume] in Serum or Plasma 434 pg/mL 200-1100 Vitamin B12 [place] ([facility]) Folate [Mass/volume] in Serum or Plasma >24.0 Folate, Serum [place] ([facility]) ID Date Data Source [id number] 07/14/2020 08:48:00 AM EDT [place] ([facility]) Name Value Range Interpretation Code Description Data Xin rce(s) Supporting Document(s) Hemoglobin [Mass/volume] in Blood 14.4 g/dL 11.7-15.5 He moglobin [place] ([facility]) Erythrocytes [#/volume] in Blood by Automated count 4.44 million/uL 3.80-5.10 Red Blood Cell Count [place] ([facility]) Leukocytes [#/volume] in Blood by Automated count 9.2 thousand/uL 3 .8-10.8 White Blood Cell Count [place] ([facility]) Erythrocyte mean corpuscular hemoglobin concentration [Mass/volume] by Automated count 34.3 g/dL 32.0-36.0 Mchc [place] ([facility]) Hematocrit [Volume Fraction] of Blood by Automated count 42.0 % 35.0-45.0 Hematocrit [place] ([facility]) Erythrocyte mean corpuscular volume [Entitic volume] by Auto mated count 94.6 fL 80.0-100.0 Mcv [place] ([facility]) Erythrocyte mean corpuscular hemoglobin [Entitic mass] by Automated count 32.4 pg 27.0-33.0 Mch [place] ([facility]) Platelets [#/volume] in Blood by Automated count 299 thousand/uL 14 0-400 Platelet Count [place] ([facility]) Erythrocyte distribution width [Ratio] by Automated count 12.3 % 11.0-15.0 Rdw [place] ([facility]) Platelet mean volume [Entitic volume] in Blood by Sean 10.3 f L 7.5-12.5 Mpv [place] ([facility]) Neutrophils [#/volume] in Blood by Automated count 6008 cells/uL 15 00-7800 Absolute Neutrophils [place] ([facility]) Lymphocytes [#/volume] in Blood by Automated count 1794 cells/uL 85 0-3900 Absolute Lymphocytes [place] ([facility]) Eosinophils [#/volume] in Blood by Automated count 377 cells/uL 15- 500 Absolute Eosinophils [place] ([facility]) Monocytes [#/volume] in Blood by Automated count 929 cells/uL 200-9 50 Absolute Monocytes [place] ([facility]) Basophils [#/volume] in Blood by Automated count 92 cells/uL 0-200 Absolute Basophils [place] ([facility]) Lymphocytes/100 leukocytes in Blood by Automated count 19.5 % 15-49 Lymphocytes [place] ([facility]) Monocytes/100 leukocytes in Blood by Automated count 10.1 % 0-13 Monocytes [place] ([facility]) Eosinophils/100 leukocytes in Blood by Automated count 4.1 % 0-8 Eosinophils [place] ([facility]) Neutrophils/100 leukocytes in Blood by Automated count 65.3 % 38-80 Neutrophils [place] ([facility]) Basophils/100 leukocytes in Blood by Automated count 1.0 % 0-2 Basophils [place] ([facility]) ID Date Data Source [id number] 07/14/2020 08:48:00 AM EDT [place] ([facility]) Name Value Range Interpretation Code Description Data Xin rce(s) Supporting Document(s) Bacteria identified in Urine by Culture Reflexive Urine Culture [place] ([facility]) ID Date Data Source [id number] 07/14/2020 08:48:00 AM EDT [place] ([facility]) Name Value Range Interpretation Code Description Data Xin rce(s) Supporting Document(s) Color of Urine yellow yellow Color [place] ([facility]) Specific gravity of Urine by Test strip 1.001-1.035 Specific [place] ([facility]) Appearance of Urine clear clear Appearance A[place] A ([facility]) pH of Urine by Test strip 5.0-8.0 Ph [place] ([facility]) Glucose [Presence] in Urine by Test strip negative negative Glucose [place] ([facility]) Hemoglobin [Presence] in Urine by Test strip negative negative Occult Blood [place] ([facility]) Ketones [Presence] in Urine by Test strip negative negative Ketones [place] ([facility]) Bilirubin.total [Presence] in Urine by Test strip negative negative Bilirubin [place] ([facility]) Nitrite [Presence] in Urine by Test strip negative negative Nitrite [place] ([facility]) Leukocyte esterase [Presence] in Urine by Test strip negative n egative Leukocyte Esterase [place] ([facility]) Protein [Presence] in Urine by Test strip negative negative Protein [place] ([facility]) Erythrocytes [#/area] in Urine sediment by Microscopy high power field none seen < or = 2 Rbc [place] ([facility]) Epithelial cells.squamous [#/area] in Ur ine sediment by Microscopy high power field none seen < or = 5 Squamous Epithelial Cells AT [facility] ([facility]) Leukocytes [#/area] in Urine sediment by Microscopy high pow er field none seen < or = 5 Wbc [place] ([facility]) Bacteria [#/area] in Urine sediment by Microscopy high power field none seen none seen Bacteria [place] ([facility]) Hyaline casts [#/area] in Urine sediment by Microscopy low p ower field 0-5 none seen Abnormal (applies to non-numeric results) Hyaline Cast [place] ([facility]) ID Date Data Source [id number] 07/14/2020 08:48:00 AM EDT [place] ([facility]) Name Value Range Interpretation Code Description Data Xin rce(s) Supporting Document(s) Glucose [Mass/volume] in Serum or Plasma 93 mg/dL 65-99 Glucose [place] ([facility]) Creatinine [Mass/volume] in Serum or Plasma 0.99 mg/dL 0.60 -0.93 Above high normal Creatinine [place] ([facility]) Urea nitrogen [Mass/volume] in Serum or Plasma 11 mg/dL 7-25 Urea Nitrogen (BUN) [place] ([facility]) Glomerular filtration rate/1.73 sq M.pre dicted among non-blacks [Volume Rate/Area] in Serum, Plasma or Blood by Creatinine-based formula (CKD-EPI) 57 mL/min/1.73m2 > or = 60 Below low normal eGFR Non-afr. Ethiopian [place] ( [facility]) Urea nitrogen/Creatinine [Mass Ratio] in Serum or Plasma 11 (calc) 6-22 BUN/creatinine Ratio [place] ([facility]) Glomerular filtration rate/1.73 sq M.pre dicted among blacks [Volume Rate/Area] in Serum, Plasma or Blood by Creatinine-based formula (CKD-EPI) 66 mL/min/1.73m2 > or = 60 eGFR [place] ([facility]) Chloride [Moles/volume] in Serum or Plasma 105 mmol/L 98-110 Chloride [place] ([facility]) Carbon dioxide, total [Moles/volume] in Serum or Plasma 27 mmol/L 20-32 Carbon Dioxide [place] ([facility]) Sodium [Moles/volume] in Serum or Plasma 139 mmol/L 135-146 Sodium [place] ([facility]) Potassium [Moles/volume] in Serum or Plasma 4.4 mmol/L 3.5-5.3 Potassium [place] ([facility]) Protein [Mass/volume] in Serum or Plasma 6.1 g/dL 6.1-8.1 Protein, Total [place] ([facility]) Albumin [Mass/volume] in Serum or Plasma 3.8 g/dL 3.6-5.1 Albumin [place] ([facility]) Calcium [Mass/volume] in Serum or Plasma 9.5 mg/dL 8.6-10.4 Calcium [facility]) Bilirubin.total [Mass/volume] in Serum or Plasma 0.5 mg/dL 0.2-1 .2 Bilirubin, Total [place] ([facility]) Globulin [Mass/volume] in Serum by calculation 2.3 g/dL_(calc) 1.9- 3.7 Globulin [place] ([facility]) Albumin/Globulin [Mass Ratio] in Serum or Plasma 1.7 (calc) 1.0-2 .5 Albumin/globulin Ratio [place] ([facility]) Alkaline phosphatase [Enzymatic activity/volume] in Serum or Plasma 39 U/L 37-153 Alkaline Phosphatase [place] ([facility]) Aspartate aminotransferase [Enzymatic activity/volume] in Serum or Plasma 14 U/L 10-35 Ast [place] ([facility]) Alanine aminotransferase [Enzymatic activity/volume] in Seru m or Plasma 9 U/L 6-29 Alt [place] ([facility]) ID Date Data Source [id number] 07/14/2020 08:48:00 AM EDT [place] ([facility]) Name Value Range Interpretation Code Description Data Xin rce(s) Supporting Document(s) Thyroxine (T4) free [Mass/volume] in Serum or Plasma 1.8 NG/dL 0 .8-1.8 T4, Free [place] ([facility]) Thyrotropin [Units/volume] in Serum or Plasma 0.07 mIU/L 0. 40-4.50 Below low normal Tsh [place] ([facility]) ID Date Data Source [id number] 07/14/2020 08:48:00 AM EDT [place] ([facility]) Name Value Range Interpretation Code Description Data Xin rce(s) Supporting Document(s) Triglyceride [Mass/volume] in Serum or Plasma 92 mg/dL <150 Triglycerides [place] ([facility]) Cholesterol [Mass/volume] in Serum or Plasma 128 mg/dL <200 Cholesterol, Total [place] ([facility]) Cholesterol in HDL [Mass/volume] in Serum or Plasma 40 mg/dL > or = 50 Below low normal HDL Cholesterol [place] ([facility]) Cholesterol.total/Cholesterol in HDL [Mass Ratio] in Serum o r Plasma 3.2 calc <5.0 Chol/hdlc Ratio [place] ([facility]) Cholesterol non HDL [Mass/volume] in Serum or Plasma 88 mg/dL_(calc ) <130 Non HDL Cholesterol [place] ([facility]) Cholesterol in LDL [Mass/volume] in Serum or Plasma by calculation 70 mg/dL_(calc) <100 LDL-cholesterol [place] ([facility]) ID Date Data Source [id number] 07/14/2020 08:48:00 AM EDT [place] ([facility]) Name Value Range Interpretation Code Description Data Xin rce(s) Supporting Document(s) Iron binding capacity [Mass/volume] in Serum or Plasma 315 m cg/dL_(calc) 250-450 Iron Binding Capacity [place] ([facility]) Iron [Mass/volume] in Serum or Plasma 140 mcg/dL 45-160 Iron, Total [place] ([facility]) Iron saturation [Mass Fraction] in Serum or Plasma 44 %_(calc) 16- 45 % Saturation [place] ([facility]) Ferritin [Mass/volume] in Serum or Plasma 29 NG/mL 16-288 Ferritin [place] ([facility]) ID Date Data Source [id number] 01/09/2020 11:07:11 AM [facility] MAMMO DIGITAL SCREENING BILATERAL [id number] INAL RESULTInterpreted by:Jacquelyn Lutz MDBILATERAL SCREENING DIGITAL MAMMOGRAM WITH COMPUTER-AIDED DETECTIONINDICATION: Screening mammogram.COMPARISON: Prior mammograms dated 03/20/2017, 12/02/2015, 11/21/2012, 11/16/2011, 11/11/2010, 08/26/2009LAST CLINICAL BREAST EXAM: [facility] [place] Risk Assessment Senait Model5-Year RiskPatient risk: 1.4%Average risk: 2.2% Lifetime RiskPatient risk: 3.6% Average risk: 5.4%TECHNIQUE: Bilateral craniocaudal and mediolateral oblique digital mammograms were obtained with tomosynthesis. Computer-aided detection was utilized. This mammogram was performed on the mobile mammography unit..FINDINGS: The breasts are almost entirely fatty. Density Category A. No suspicious masses, suspicious calcifications, or areas of architectural distortion are seen in either breast. No suspicious interval change from prior mammograms. IMPRESSION:No mammographic evidence of malignancy.BI-RADS 1 - NegativeRecommendation: Annual screening mammogram.This document has been electronically signed by Jacquelyn Lutz MD on 01/09/2020 11:05 AM Name Value Range Interpretation Code Description Data Xin rce(s) Supporting Document(s) ID Date Data Source [id number] 12/10/2019 10:15:00 AM EST [facility]) Name Value Range Interpretation Code Description Data Xin rce(s) Supporting Document(s) SARS-CoV-2 (COVID-19) RNA [Presence] in Respiratory specimen by VICTORINA with probe detection not detected not detected Sars Cov 2 RNA [facility]) ID Date Data Source [id number] 12/10/2019 10:15:00 AM EST [facility]) Name Value Range Interpretation Code Description Data Xin rce(s) Supporting Document(s) SARS-CoV-2 (COVID-19) RNA [Presence] in Respiratory specimen by VICTORINA with probe detection not detected not detected Sars Cov 2 RNA [facility]) ID Date Data Source [id number] 12/10/2019 10:15:00 AM [facility]) Name Value Range Interpretation Code Description Data Xin rce(s) Supporting Document(s) SARS-CoV-2 (COVID-19) RNA [Presence] in Respiratory specimen by VICTORINA with probe detection not detected not detected Sars Cov 2 RNA [facility]) ID Date Data Source [id number] 12/10/2019 10:15:00 AM EST [facility]) Name Value Range Interpretation Code Description Data Xin rce(s) Supporting Document(s) SARS-CoV-2 (COVID-19) RNA [Presence] in Respiratory specimen by VICTORINA with probe detection not detected not detected Sars Cov 2 RNA [facility]) ID Date Data Source [id number] 12/10/2019 10:15:00 AM EST [facility]) Name Value Range Interpretation Code Description Data Xin rce(s) Supporting Document(s) SARS-CoV-2 (COVID-19) RNA [Presence] in Respiratory specimen by VICTORINA with probe detection not detected not detected Sars Cov 2 RNA [facility]) ID Date Data Source [id number] 12/10/2019 10:15:00 AM EST [facility]) Name Value Range Interpretation Code Description Data Xni rce(s) Supporting Document(s) SARS-CoV-2 (COVID-19) RNA [Presence] in Respiratory specimen by VICTORINA with probe detection not detected not detected Sars Cov 2 RNA [facility]) ID Date Data Source [id number] 12/10/2019 10:15:00 AM EST [facility]) Name Value Range Interpretation Code Description Data Xin rce(s) Supporting Document(s) SARS-CoV-2 (COVID-19) RNA [Presence] in Respiratory specimen by VICTORINA with probe detection not detected not detected Sars Cov 2 RNA [facility]) ID Date Data Source [id number] 11/10/2019 10:53:36 AM EDT [facility] Vital SignsTemperature: 98.6FV ital Signs performed by: Mely Ramirez LPN, November 10, 2019 10:56 AMVital Signs performed by: Mely Ramirez LPN, November 10, 2019 10:56 AMAdult Questionnaire1) Does the patient have a long-term health problem with heart disease, lung disease, asthma, kidney disease, metabolic disease (e.g., diabetes), anemia, or other blood disorder? No2) Does the patient have allergies to medications, food, a vaccine component, or latex? No3) Does the patient have cancer, leukemia, AIDS, or any other immune system problem? No4) Does the patient live with or expect to have close contact with a person whose immune system is severely compromised and who must be in protective isolation (e.g., an isolation room of a bone marrow transplant unit)? No5) Does the patient take cortisone, prednisone, other steroids, or anticancer drugs, or has the patient had radiation treatments? No6) During the past year, has the patient received a transfusion of blood or blood products, or been given immune (gamma) globulin or an antiviral drug? No7) For women: Is the patient or is there a chance she could become during the next month? No8) Has the patient ever had a serious reaction to a vaccine in the past? No9) Has the patient had a seizure or a brain or other nervous system problem? No10) Has the patient received any vaccinations in the past 4 weeks? No11) Is the patient older than age 49 years? Yes12) Is the patient sick today? No13) Vaccine information given and explained to patient? YesVaccines Administered/Entered:Vaccination Group: InfluenzaSeries: 1Vaccination: Flulaval Quadrivalent Intramuscular Suspension Prefilled Syringe 0.5 MLMfr / Lot# / Exp.Date: [employer] / [id number] / 1Amt. Given / Route / Site: 0.5 mL / IM / Left DeltoidNDC / CVX: [id number] / 150Administered Date: 11/10/2019 10:55VFC Eligibility: Not VFC EligibleVIS Date: 09/19/2018VIS Given / VIS Given On: Yes / 11/10/2019Comments: Administered by: Mely Ramirez LPN Assessment & Plan Orders:[id number] - Immo Admin (over 19 yrs), 1st Vaccine [CPT-28392] FluLaval Quadrivalent, preservative free [CPT-03220] ___ Name Value Range Interpretation Code Description Data Xin rce(s) Supporting Document(s) ID Date Data Source [id number] 11/04/2019 11:53:40 AM EDT [facility] Labs In-House Blood TestsDate/Time Colle cted: November 04, 2019 10:01 AMTest Result Reference Range Normal ValueComments: Labs drawn in office. Taken from Left AC. tolerated well. Trixie Ortizchristian ABRAHAM, November 04, 2019 11:54 AMAssessment & Plan Orders:[id number] Vst-Est Level I [CPT-17702] 33606 - Venipuncture [CPT-17627] Electronically signed by Marcia MART on 04/2019 at 11:14 AM Name Value Range Interpretation Code Description Data Xin rce(s) Supporting Document(s) ID Date Data Source [id number] 11/04/2019 10:01:00 AM EDT [facility] Name Value Range Interpretation Code Description Data Xin rce(s) Supporting Document(s) HCT 44.8 % 36.0-47.0 [facility] HGB 14.7 g/dL 12.0-15.5 [facility] MCH 32.8 G/DL pg 32.0-36.5 [facility] MCHC 31.7 PG % 27.0-33.0 [facility] PLATELETS 348 10 10*3/mm3 150-450 [facility] RBC 4.63 10 10*6/mm3 4.00-5.40 [facility] RDW 13.0 % 11.5-14.5 [facility] WBC TOTAL 8.6 4.0-10.0 [facility] ID Date Data Source [id number] 11/04/2019 10:01:00 AM EDT [facility] Name Value Range Interpretation Code Description Data Xin rce(s) Supporting Document(s) HGBA1C 5.4 % [facility] ID Date Data Source [id number] 11/04/2019 10:01:00 AM EDT [facility] Name Value Range Interpretation Code Description Data Xin rce(s) Supporting Document(s) BG FASTING 102 mg/dL 70-[address] [facility] ID Date Data Source [id number] 10/06/2019 08:50:46 AM EDT [facility] Measurements & CalculationsHeight: 64 inches (5 ft. 4 in.) 162.56 cm Weight: 177 pounds 4 oz. 80.57 kg Body Mass Index (BMI): 30.53BMI Interpretation: ObeseBody Surface Area (BSA): 1.86Weight Management Education Done (Nutrition/Physical Activity)Vital SignsTemperature: 97.7FPulse Rate: 64 beats/minuteRespiratory Rate: 14 respirati ons/minuteBlood Pressure: 118/67 O2 Saturation: 91% Vital Signs performed by: Mely Ramirez LPN, October 06, 2019 8:54 AMVital Signs performed by: Mely Ramirez LPN, October 06, 2019 8:54 AMInitial Intake Information From: patientRoom #: 12Infectious Disease / Travel ScreeningRecent travel for you or any close contacts? NoHave you had any close contact with anyone diagnosed with or under investigation for COVID-19 (coronavirus)? NoFever? NoRespiratory symptoms: cough, cold, congestion, shortness of breath, difficulty breathing? NoLoss of smell? NoLoss of taste? NoSmoking, Tobacco, Vaping or Smoke Exposure StatusSmoke Status: current every day smokerTobacco Use: YesAdv to Quit: YesDo you vape? NoPassive Smoke Exposure: YesMenstrual HistoryAny possibility of ? NoComments: Hysterectomy Healthcare HistorySince your last office visit...Have you been admitted to the hospital? NoHave you been to an emergency room (ER) or urgent care clinic? NoHave you seen another healthcare provider? NoHave you seen a dentist? NoIntake performed by: Mely Ramirez LPN, October 06, 2019 8:57 AMRate Your HealthIn general, would you say your health is? GoodPain AssessmentAre you currently having any pain which... You would like your provider to address? No Affects your activity level? NoDepression Screening - PHQ-2Over the last two weeks, have you... Had little interest or pleasure in doing things? Not at all Been feeling down, depressed, or hopeless? Not at all PHQ-2 Score: 0Anxiety Screening - ARMANDO-2Over the last two weeks, have you been... Feeling nervous, anxious, or on edge? More than half the days Unable to stop or control worrying? More than half the days ARMANDO-2 Score: 4Food InsecurityWithin the past year...Did you worry whether your food would run out before you got money to buy more? Never trueWas there a time when the food you bought didn't last and you didn't have money to get more? Never trueGeneralized Anxiety Disorder 7-Item Screening (ARMANDO-7)Answer Guide:0 = Not at all1 = Several days2 = Over half the days3 = Nearly every dayOver the last 2 weeks, how often have you been bothered by the following problems?Feeling nervous, anxious, or on edge: 2Not being able to stop or control worryinWorrying too much about different things: 2Trouble relaxinBeing so restless that it's hard to sit still: 2Becoming easily annoyed or irritable: 2Feeling afraid as if something awful might happen: 0Answer Guide:0 = Not difficult at all1 = Somewhat difficult2 = Very difficult3 = Extremely difficultHow difficult have these made it for you to do your work, take care of things at home, or get along with other people? 2GAD-7 Screening Results ARMANDO-2 Score: 4GAD-7 Score: 12Functional Impairment: Very difficultRecommendation: Moderate anxietyScreening, Brief Intervention, & Referral to Treatment (SBIRT)Pre-Screening Questions How many times have you have 4 or more drinks in a day? 365How many times have you used an illegal drug or used a prescription medication for a non-medical reason? 0Performed by: Mely Ramirez LPN, October 06, 2019 9:09 AMPatient History Medical History:Anxiety DisorderDepressionG E R DThyroid DisorderArthritisacid refulx allergies oaSurgical History:artificial eye TonsillectomyHysterectomy (Complete)total right hip replacement Family History:Family History of ArthritisFH Heart DiseaseFH HypertensionFamily History of Severe AllergiesFamily History of AnginaFamily History of MelanomaFH Weight DisorderSocial/Personal History: Advised to Quit/Tobacco Education: YesChief Complaintfollow-up visit requesting Wheelchair/ discuss memory loss Room 12History of Present Illness (HPI)74 YO female here for follow up for memory loss and request for wheel Chair. Pt states bilat knee pain, hip and shoulder pain. Pt states dont feel like the naproxen is working any more. Pt states have been using lidacine pain ointment that works sometimes. Pt states have been trying to walk for for exercise.Pt states uses cane for assistance. Pt states increased knee and hip pain with walking. Pt requsting a wheel chair to assist with her mobility. Pt states have been experincing some anxiety since May 14 of this year. 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 Pt states no interest in therapy at this time. Pt states have been having some short term me davi loss. Pt is requesting referral to neurologist. HPI performed by: Marcia MART, October 06, 2019 9:56 AMProblem ReviewProblem List was reviewed and/or updated during this visit.Medication Reconciliation & ReviewMedication List was reviewed and/or updated during this visit, including review of any qgmg-byr-oabvusx medications, herbal therapies, and/or supplements.Allergy ReviewAllergy List was reviewed and/or updated during this visit.Adult Preventive CareProvider Calculated and Reviewed all Clinical Protocols for patient today. Screening Tobacco Screening: Smoking Status: current every day smoker (10/06/2019) Tobacco Use: Currently (10/06/2019) Advised to Quit: Yes (10/06/2019)Labs/Meds/Other Counseling-Nutrition and Physical Activity:BMI Interpretation: Obese (10/06/2019) Counseling: Done (10/06/2019) Physical Activity: Done (10/06/2019)Cancer Screening Mammogram Reviewed: Previous Comments: needs order (07/24/2019)Today's Comments: spoke with Sejal izquierdo Mammo vanReview of Systems General: Denies loss of appetite, chills, dizziness, fatigue, fever, continued fever, headache, feeling ill, sweats, night sweats, sleep disturbances, weight loss. Eyes: Denies blurring of vision, double vision, irritation, discharge, vision loss, eye pain, eye swelling, droopy eyelid, sensitivity to light, redness, itching. Ears/Nose/Throat: Denies earache, ear discharge, ringing in ears, decreased hearing, nasal congestion, nosebleeds, runny nose, sore throat, hoarseness, difficulty swallowing, dry mouth, tooth pain, bleeding gums, swollen glands. Cardiovascular: Denies chest pain, palpitations, feeling faint, trouble breathing w/exertion, SOB upon lying down, SOB at night, peripheral edema, elevated blood pressure, decreased heart rate. Respiratory: Denies cough, difficulty breathing, shortness of breath, excessive sputum, coughing up blood, wheezing, chest pain. Breast: Denies discoloration, tenderness, breast changes, breast lump, nipple discharge. Gastrointestinal: Denies nausea, vomiting, bleeding, burning, itching, irritation, cramps, diarrhea, constipation. Genitourinary: Denies urinary incontinence, pain with urination, burning with urination, urinary frequency, urinary hesitancy, urinary urgency, urinary urgency at night, incomplete emptying, blood in urine. Musculoskeletal: Complains of joint pain, leg pain. Denies back pain, other pain-see comments, joint swelling, body aches, muscle aches, muscle cramps, muscle weakness, stiffness, recent injury. Skin: Denies rash, hives, redness, itching, dryness, nail changes, suspicious lesions, athlete's foot, rash on palms, rash on bottom of feet. Neurologic: Denies muscle impairment, weakness, numbness/tingling, seizures, slurred speech, feeling faint, tremors, vertigo, paralysis on one side, paralysis on both sides. Psychiatric: Complains of memory loss. Denies depression, anxiety, mental disturbance, suicidal ideation, homicidal ideation, hallucinations, paranoia, feeling stressed, hearing voices. short term memory lossEndocrine: Denies cold intolerance, heat intolerance, excessive thirst, excessive hunger, excessive urination, weight loss, weight gain. Physical ExamGeneral Appearance: well nourished, well hydrated, no acute distressEyes, External: conjunctivae and lids normal, EOMIRespiratory, Auscultation: clear to auscultation bilaterally; no rales, rhonchi, or wheezesRespiratory, Effort: no intercostal retractions or use of accessory musclesCardiovascular, Auscultation: S1, S2 audible; no murmur, rub, or gallop; RRRPeripheral Circulation: no clubbing, cyanosis, edema, or varicositiesAbdomen: soft, non-tender, no masses, bowel sounds normalGait & Station: ambulate with cane. Skin, Inspection: no rashes, lesions, or ulcerationsOrientation: oriented to time, place, and personMood & Affect: no depression, anxiety, or agitationJudgment & Insight: intactRate Your HealthIn general, would you say your health is? GoodAssessment & Plan Problems:Added: Poor short-term memory (ICD-780.93) (ETO59-E30.3) Assessment: Pt states poor short term memory loss over the past three months. Instructions: We have made a referral for you today. We will contact you to set this up.Nicotine dependence, unspecified, uncomplicated (YRQ01-K09.200) Assessment: Instructions: Please continue to try to cut back on your smoking with a goal to quit.Encounter for screening mammogram for malignant neoplasm of breast (ICD- V76.12) (RAO31-W12.31) Assessment: Pt would like to have mammo done on the [facility] bus. Instructions: Mammogram ordered for you today.Assessed:Osteoarthritis of bilateral knees (ICD-715.96) (BAC90-B27.0) Assessment: Instructions: We have changed yoou naproxen to meloxicam. Please stop taking Naproxen and start taking Maloxicam.pLease take with food. Please re port any major side effects. Please try to avoid prolonged sitting or standing.Please try to maintain adequate intake of water daily and good nutritoion.May continue OTC pain ointment as neededAlcohol dependence, uncomplicated (OQX32-F71.20) Assessment: Pt states 1-2 drinks daily. Instructions: Please continue to try to quit drinking alcohol. This could cause an interaction with your prescribed medications. Please let us know if you need assistance in doing so.HYPERTENSION (ICD-401.9) (TLA91-Z08) Assessment: Instructions: Your Blood pressure is at goal today.Osteoarthritis of bilateral knees (ICD-715.96) (TPJ37-M41.0) Assessment: Wheel chair ordered for assistance with mobility.Impaired mobility (ZHW08-N98.09) Assessment: Wheel chair ordered.Patient Instructions/Care Plan: Osteoarthritis of bilateral knees: We have changed yoou naproxen to meloxicam. Please stop taking Naproxen and start taking Maloxicam.pLease take with food. Please report any major side effects. Please try to avoid prolonged sitting or standing.Please try to maintain adequate intake of water daily and good nutritoion.May continue OTC pain ointment as neededPoor short-term memory: We have made a referral for you today. We will contact you to set this up.Alcohol dependence- uncomplicated: Please continue to try to quit drinking alcohol. This could cause an interaction with your prescribed medications. Please let us know if you need assistance in doing so.HYPERTENSION: Your Blood pressure is at goal today.Nicotine dependence- unspecified- uncomplicated: Please continue to try to cut back on your smoking with a goal to quit.Encounter for screening mammogram for malignant neoplasm of breast: Mammogram ordered for you today. Plan developed in collaboration with patient and/or familyMedications:WHEEL CHAIR.MOTORIZED WHEEL CHAIRMELOXICAM 15 MG ORAL TABLETPAROXETINE HCL 40 MG ORAL TABLETVITAMIN C ER 500 MG ORAL CAPSULE EXTENDED RELEASEVITAMIN D3 SUPER STRENGTH 2000 UNIT ORAL CAPSULEENALAPRIL MALEATE 10 MG ORAL TABLETSYSTANE 0.4-0.3 % OPHTHALMIC SOLUTIONALLERGY TABLETSALINE NASAL SPRAY SOLUTION (SALINE SOLN)KLOR-CON 10 10 MEQ ORAL TABLET EXTENDED RELEASEFUROSEMIDE 40 MG ORAL TABLETADULT ASPIRIN REGIME N 81 MG ORAL TABLET DELAYED RELEASECOMMODE BEDSIDESIMVASTATIN 40 MG ORAL TABLETDITROPAN XL 5 MG ORAL TABLET EXTENDED RELEASE 24 HOURLEVOTHYROXINE SODIUM 125 MCG ORAL TABLETOMEPRAZOLE 40 MG ORAL CAPSULE DELAYED RELEASEATENOLOL 50 MG ORAL TABLETMedication Changes:Refilled:MELOXICAM 15 MG ORAL TABLET-take one tablet by mouth daily as needed for pain. Qty: 30[Tablet] Refills: 2 Method: ElectronicNew Prescription:* WHEEL CHAIR.-Use to assist with mobility Qty: 1 Refills: 0 Method: Print then Fax to PharmacyChanged:From: ORAL NAPROXEN 500 MG ORAL TABLET Qty: [id number] Refills: 30[Tablet] To: MELOXICAM 15 MG ORAL TABLET-take one tablet by mouth daily as needed for pain. Qty: 30[Tablet] Refills: 2Allergies:* TRAMADOL (Critical)* SEASONAL (Critical)* CODEINE (Critical)* MORPHINE (Critical)Orders:Neurology Consult [CPT-70240] Mammography - Screening -bilateral (2-view study of each breast), including computer-aided detection (CAD) when performed [CPT-20623] Adult - Ofc Vst, EST, Level IV [CPT-9 9214] Follow-Up Return to clinic: 3 months for follow up. Clinical Visit Summary CompletedMedications:WHEEL CHAIR. Use to assist with mobility #1 x 0 Entered and Authorized by: Marcia MART Method used: Printed then faxed to ... [id number] (retail) [address] [place] [address] Fax: Indications: OSTEOARTHRITIS OF BILATERAL KNEES;PAIN IN RIGHT KNEE;PAIN IN RIGHT HIP JOINT;IMPAIRED MOBILITY;BILATERAL KNEE PAIN;BILATERAL HIP JOINT PAIN RxID: [id number] 15 MG ORAL TABLET (MELOXICAM) take one tablet by mouth daily as needed for pain. #30[Tablet] x 2 Route:ORAL Entered and Authorized by: Marcia MART Method used: Electronically to [id number] (retail) [address] [place] [address] Note to Pharmacy: Route: ORAL; Indications: BILATERAL HIP JOINT PAIN RxID: [id number] signed by Marcia MART on 10/09/2019 at 2:41 AM Name Value Range Interpretation Code Description Data Xin rce(s) Supporting Document(s) Procedure Social History Code Duration Value Status Description Data Source(s ) Alcohol intake 01/05/2020 12:00:00 AM EST Current drinker of al cohol (finding) completed Current drinker of alcohol (finding) [facility] Tobacco use and exposure 01/05/2020 12:00:00 AM EST Never used co mpleted Never used [facility] Cigarettes smoked current (pack per day) - Reported 01/05/20 12:00:00 AM EST UNK completed [facility] Smoking 01/05/2020 12:00:00 AM EST Current every day smoker co mpleted Current every day smoker [facility] Vital Signs ID Date Data Source UNK Name Value Range Interpretation Code Description Data Source(s) Diastolic blood pressure 70 mm[Hg] 70 mm[Hg] [facility] ([facility]) Body height 64 [in_i] 64 [in_i] [facility] ([facility]) Body mass index (BMI) [Ratio] 31.3 kg/m2 31.3 k g/m2 [facility] ([facility]) Systolic blood pressure 107 mm[Hg] 107 mm[Hg] A THENA ([facility]) Body weight 2918 [oz_av] 2918 [oz_av] [facility] ([facility]) Body height 64 [in_i] 64 [in_i] [facility] ([facility]) Body height 64 [in_i] 64 [in_i] [facility] ([facility]) Body height 64 [in_i] 64 [in_i] [facility] ([facility]) Diastolic blood pressure 62 mm[Hg] 62 mm[Hg] [facility] ([facility]) Body height 64 [in_i] 64 [in_i] [facility] ([facility]) Body mass index (BMI) [Ratio] 32.5 kg/m2 32.5 k g/m2 [facility] ([facility]) Systolic blood pressure 108 mm[Hg] 108 mm[Hg] [facility] Body weight 3028 [oz_av] 3028 [oz_av] [facility] ([facility]) Diastolic blood pressure 62 mm[Hg] 62 mm[Hg] [facility] ([facility]) Body height 64 [in_i] 64 [in_i] [facility] ([facility]) Body mass index (BMI) [Ratio] 32.5 kg/m2 32.5 k g/m2 [facility] ([facility]) Systolic blood pressure 108 mm[Hg] 108 mm[Hg] A [facility] ([facility]) Body weight 3028 [oz_av] 3028 [oz_av] [facility] ([facility]) Diastolic blood pressure 62 mm[Hg] 62 mm[Hg] [facility] ([facility]) Body height 64 [in_i] 64 [in_i] [facility] ([facility]) Body mass index (BMI) [Ratio] 32.5 kg/m2 32.5 k g/m2 [facility] ([facility]) Systolic blood pressure 108 mm[Hg] 108 mm[Hg] [facility] Body weight 3028 [oz_av] 3028 [oz_av] [facility] ([facility]) Diastolic blood pressure 62 mm[Hg] 62 mm[Hg] [facility] ([facility]) Body height 64 [in_i] 64 [in_i] [facility] ([facility]) Body mass index (BMI) [Ratio] 32.5 kg/m2 32.5 k g/m2 [facility] ([facility]) Systolic blood pressure 108 mm[Hg] 108 mm[Hg] [facility] Body weight 3028 [oz_av] 3028 [oz_av] [facility] ([facility]) Diastolic blood pressure 62 mm[Hg] 62 mm[Hg] [facility] ([facility]) Body height 64 [in_i] 64 [in_i] [facility] ([facility]) Body mass index (BMI) [Ratio] 32.5 kg/m2 32.5 k g/m2 [facility] ([facility]) Systolic blood pressure 108 mm[Hg] 108 mm[Hg] A [facility] ([facility]) Body weight 3028 [oz_av] 3028 [oz_av] [facility] ([facility]) Body height 64 [in_i] 64 [in_i] [facility] ([facility]) Body height 64 [in_i] 64 [in_i] [facility] ([facility]) Body height 64 [in_i] 64 [in_i] [facility] ([facility]) Body height 64 [in_i] 64 [in_i] [facility] ([facility]) Body height 64 [in_i] 64 [in_i] [facility] ([facility]) Body height 64 [in_i] 64 [in_i] [facility] ([facility]) Diastolic blood pressure 63 mm[Hg] 63 mm[Hg] [facility] ([facility]) Diastolic blood pressure 57 mm[Hg] 57 mm[Hg] [facility] ([facility]) Body height 64 [in_i] 64 [in_i] [facility] ([facility]) Body mass index (BMI) [Ratio] 30.1 kg/m2 30.1 k g/m2 [facility] ([facility]) Systolic blood pressure 95 mm[Hg] 95 mm[Hg] A [facility] ([facility]) Systolic blood pressure 90 mm[Hg] 90 mm[Hg] A [facility] ([facility]) Body weight 2802 [oz_av] 2802 [oz_av] [facility] ([facility]) Diastolic blood pressure 63 mm[Hg] 63 mm[Hg] [facility] ([facility]) Diastolic blood pressure 57 mm[Hg] 57 mm[Hg] [facility] ([facility]) Body height 64 [in_i] 64 [in_i] [facility] ([facility]) Body mass index (BMI) [Ratio] 30.1 kg/m2 30.1 k g/m2 [facility] ([facility]) Systolic blood pressure 95 mm[Hg] 95 mm[Hg] A [facility] ([facility]) Systolic blood pressure 90 mm[Hg] 90 mm[Hg] A [facility] ([facility]) Body weight 2802 [oz_av] 2802 [oz_av] [facility] ([facility]) Diastolic blood pressure 63 mm[Hg] 63 mm[Hg] [facility] ([facility]) Body height 64 [in_i] 64 [in_i] [facility] ([facility]) Body mass index (BMI) [Ratio] 30.1 kg/m2 30.1 k g/m2 [facility] ([facility]) Systolic blood pressure 95 mm[Hg] 95 mm[Hg] A [facility] ([facility]) Systolic blood pressure 90 mm[Hg] 90 mm[Hg] A [facility] ([facility]) Body weight 2802 [oz_av] 2802 [oz_av] [facility] ([facility]) Diastolic blood pressure 57 mm[Hg] 57 mm[Hg] [facility] ([facility]) Diastolic blood pressure 57 mm[Hg] 57 mm[Hg] [facility] ([facility]) Diastolic blood pressure 63 mm[Hg] 63 mm[Hg] [facility] ([facility]) Body height 64 [in_i] 64 [in_i] [facility] ([facility]) Body mass index (BMI) [Ratio] 30.1 kg/m2 30.1 k g/m2 [facility] ([facility]) Systolic blood pressure 95 mm[Hg] 95 mm[Hg] A [facility] ([facility]) Systolic blood pressure 90 mm[Hg] 90 mm[Hg] A [facility] ([facility]) Body weight 2802 [oz_av] 2802 [oz_av] [facility] ([facility]) Diastolic blood pressure 63 mm[Hg] 63 mm[Hg] [facility] ([facility]) Diastolic blood pressure 57 mm[Hg] 57 mm[Hg] [facility] ([facility]) Body height 64 [in_i] 64 [in_i] [facility] ([facility]) Body mass index (BMI) [Ratio] 30.1 kg/m2 30.1 k g/m2 [facility] ([facility]) Systolic blood pressure 95 mm[Hg] 95 mm[Hg] A [facility] ([facility]) Systolic blood pressure 90 mm[Hg] 90 mm[Hg] A [facility] ([facility]) Body weight 2802 [oz_av] 2802 [oz_av] [facility] ([facility]) Diastolic blood pressure 63 mm[Hg] 63 mm[Hg] [facility] ([facility]) Diastolic blood pressure 57 mm[Hg] 57 mm[Hg] [facility] ([facility]) Body height 64 [in_i] 64 [in_i] [facility] ([facility]) Body mass index (BMI) [Ratio] 30.1 kg/m2 30.1 k g/m2 [facility] ([facility]) Systolic blood pressure 95 mm[Hg] 95 mm[Hg] A THENA ([facility]) Systolic blood pressure 90 mm[Hg] 90 mm[Hg] A THENA ([facility]) Body weight 2802 [oz_av] 2802 [oz_av] [facility] ([facility]) Diastolic blood pressure 63 mm[Hg] 63 mm[Hg] [facility] ([facility]) Diastolic blood pressure 57 mm[Hg] 57 mm[Hg] [facility] ([facility]) Body height 64 [in_i] 64 [in_i] [facility] ([facility]) Body mass index (BMI) [Ratio] 30.1 kg/m2 30.1 k g/m2 [facility] ([facility]) Systolic blood pressure 95 mm[Hg] 95 mm[Hg] A THENA ([facility]) Systolic blood pressure 90 mm[Hg] 90 mm[Hg] A THENA ([facility]) Body weight 2802 [oz_av] 2802 [oz_av] [facility] ([facility]) Respiratory rate 12 /min 12 /min MED[facility] ( [facility], ) Body height 65 [in_i] 65 [in_i] MEDENT ([facility], ) 5'5" Body weight 171.00 [lb_av] 171.00 [lb_av] MEDEN T ([facility], ) Body mass index (BMI) [Ratio] 28.5 kg/m2 28.5 k g/m2 MEDENT ([facility], ) Maurice body weight 125 [lb_av] 125 [lb_av] MEDEN T ([facility], ) Diastolic blood pressure 67 mm[Hg] 67 mm[Hg] [facility] ([facility]) Body height 64 [in_i] 64 [in_i] [facility] ([facility]) Systolic blood pressure 118 mm[Hg] 118 mm[Hg] [facility] Body weight 2836 [oz_av] 2836 [oz_av] [facility] ([facility]) Diastolic blood pressure 67 mm[Hg] 67 mm[Hg] [facility] ([facility]) Body height 64 [in_i] 64 [in_i] [facility] ([facility]) Body mass index (BMI) [Ratio] 30.53 kg/m2 30.53 kg/m2 [facility] ([facility]) Systolic blood pressure 118 mm[Hg] 118 mm[Hg] [facility] Body weight 2836 [oz_av] 2836 [oz_av] [facility] ([facility]) Diastolic blood pressure 67 mm[Hg] 67 mm[Hg] [facility] ([facility]) Body height 64 [in_i] 64 [in_i] [facility] ([facility]) Systolic blood pressure 118 mm[Hg] 118 mm[Hg] A THENA ([facility]) Body weight 2836 [oz_av] 2836 [oz_av] [facility] ([facility]) Diastolic blood pressure 67 mm[Hg] 67 mm[Hg] ADR[facility] ([facility]) Body height 64 [in_i] 64 [in_i] [facility] ([facility]) Body mass index (BMI) [Ratio] 30.53 kg/m2 30.53 kg/m2 [facility] ([facility]) Systolic blood pressure 118 mm[Hg] 118 mm[Hg] A THENA ([facility]) Body weight 2836 [oz_av] 2836 [oz_av] [facility] ([facility]) Diastolic blood pressure 67 mm[Hg] 67 mm[Hg] [facility] ([facility]) Body height 64 [in_i] 64 [in_i] [facility] ([facility]) Body mass index (BMI) [Ratio] 30.53 kg/m2 30.53 kg/m2 [facility] ([facility]) Systolic blood pressure 118 mm[Hg] 118 mm[Hg] A THENA ([facility]) Body weight 2836 [oz_av] 2836 [oz_av] [facility] ([facility]) Diastolic blood pressure 67 mm[Hg] 67 mm[Hg] [facility] ([facility]) Body height 64 [in_i] 64 [in_i] [facility] ([facility]) Body mass index (BMI) [Ratio] 30.53 kg/m2 30.53 kg/m2 [facility] ([facility]) Systolic blood pressure 118 mm[Hg] 118 mm[Hg] [facility] Body weight 2836 [oz_av] 2836 [oz_av] [facility] ([facility]) Systolic blood pressure 118 mm[Hg] 118 mm[Hg] A THENA ([facility]) Body weight 2836 [oz_av] 2836 [oz_av] [facility] ([facility]) Diastolic blood pressure 67 mm[Hg] 67 mm[Hg] [facility] ([facility]) Body height 64 [in_i] 64 [in_i] [facility] ([facility]) Body mass index (BMI) [Ratio] 30.53 kg/m2 30.53 kg/m2 [facility] ([facility]) Diastolic blood pressure 67 mm[Hg] 67 mm[Hg] [facility] ([facility]) Body height 64 [in_i] 64 [in_i] [facility] ([facility]) Body mass index (BMI) [Ratio] 30.53 kg/m2 30.53 kg/m2 [facility] ([facility]) Systolic blood pressure 118 mm[Hg] 118 mm[Hg] A THENA ([facility]) Body weight 2836 [oz_av] 2836 [oz_av] [facility] ([facility]) ID Date Data Source [id number] 01/09/2020 11:07:[address] [facility] Name Value Range Interpretation Code Description Data Source(s) WEIGHT RECORDED 160 lb 160 lb [facility] Body height Measured 60 in 60 in [facility] Patient Treatment Plan of Care Planned Activity Planned Date Details Description Data Source (s) meloxicam 15 MG Oral Tablet [facility] ([facility]) meloxicam 15 MG Oral Tablet [facility] ([facility]) meloxicam 15 MG Oral Tablet [facility] ([facility]) meloxicam 15 MG Oral Tablet [facility] ([facility]) Naproxen 500 MG Oral Tablet [facility] ([facility]) meloxicam 15 MG Oral Tablet [facility] ([facility]) Levothyroxine Sodium 0.125 MG Oral Tablet [facility] ([facility]) Naproxen 500 MG Oral Tablet [facility] ([facility]) meloxicam 15 MG Oral Tablet [facility] ([facility]) Levothyroxine Sodium 0.125 MG Oral Tablet [facility] ([facility]) meloxicam 15 MG Oral Tablet [facility]ARWIN ([facility])
[2020-11-29] MEDS ORDERED: DUOVISC (0.50ML VISCOAT/0.85ML PROVISC) OPHTH KIT As Ordered ONE (12:18)
[2020-11-29] MEDS ORDERED: fentaNYL 100 MCG/2 ML INJECTION (J3010) As Ordered ONE (14:42)
[2020-11-29] MEDS ORDERED: MIDAZOLAM INJ 2MG/2ML VIAL (J2250 PER 1MG) As Ordered ONE (14:42)
[2020-11-29 15:15] VITALS: BP 107/53
== END 2020-11-29 15:37 | disposition home or self-care (01) ==
LOC: M SDC 11:00
PROVIDERS: ATTEND Ophthalmology
DX: H25.11 Age-related nuclear cataract, right eye (principal); I10 Essential (primary) hypertension; E78.5 Hyperlipidemia, unspecified; E03.9 Hypothyroidism, unspecified; F32.9 Major depressive disorder, single episode, unspecified; Z79.899 Other long term (current) drug therapy; F17.218 Nicotine dependence, cigarettes, with other nicotine-induced disorders; Z88.5 Allergy status to narcotic agent
CPT/HCPCS: 66984; J2250; J3010; V2632

== ENCOUNTER 2021-03-16 09:29 | Inpatient (IN) | payer OTHER ==
[~2021-03-16] VITALS: Ht 160 cm; Wt 85.6 kg
[2021-03-16] MEDS: NICOTINE 21MG/24HR 1 EA TRANSDERMAL TD SCH (09:00)
[~2021-03-16 09:29] MED LIST changes: -CYCLOPENTOLATE 1% OPHTH SOLN 2 ML BTL OD SCH; -FLURBIPROFEN 0.03% OPHTH SOLN 2.5 ML OD SCH; -FURO40TA2; +FURO40TA2 PO; -LIDOCAINE 1% SDV 5ML VIAL As Ordered ONE; -LR 1,000 ML IV SCH; -PHENYLEPHRINE 2.5% OPHTH SOL 2ML OD SCH; -TETRACAINE 0.5% OPHTH SOLN 4ML OD SCH
[2021-03-16 13:52] LABS: BASO % 0.5 % (0.0-1.0); EOS # 0.1 10^3/uL (0.0-0.5); EOS % 1.7 % (0.0-3.0); HEMATOCRIT 39.5 % (36.0-47.0); HEMOGLOBIN 13.1 g/dl (12.0-15.5); LYMPH # 1.8 10^3/uL (1.5-5.0); LYMPH % 23.2 % (24.0-44.0); MEAN CORPUSCULAR HEMOGLOBIN 31.2 pg (27.0-33.0); MEAN CORPUSCULAR HGB CONC 33.2 g/dl (32.0-36.5); MONO # 0.7 10^3/uL (0.0-0.8); MONO % 8.7 % (2.0-8.0); NEUTROPHILS % 65.2 % (36.0-66.0); PLATELET COUNT, AUTOMATED 269 10^3/uL (150-450); WHITE BLOOD COUNT 7.6 10^3/uL (4.0-10.0)
[2021-03-16 14:18] LABS: ALBUMIN 3.1 GM/DL (3.2-5.2); ALT/SGPT 17 U/L (12-78); BILIRUBIN,TOTAL 0.3 MG/DL (0.2-1.0); BLOOD UREA NITROGEN 15 MG/DL (7-18); CALCIUM LEVEL 9.1 MG/DL (8.8-10.2); CARBON DIOXIDE LEVEL 28 MEQ/L (21-32); CHLORIDE LEVEL 106 MEQ/L (98-107); GLOMERULAR FILTRATION RATE > 60.0 (>39); GLUCOSE, FASTING 103 MG/DL (70-100); NT-PRO BNP 132 PG/ML (<125); POTASSIUM SERUM 3.9 MEQ/L (3.5-5.1); SODIUM LEVEL 142 MEQ/L (136-145); TOTAL PROTEIN 6.1 GM/DL (6.4-8.2)
[2021-03-16] MEDS ORDERED: LEVO75TA4 PO (15:51)
[2021-03-16] MEDS ORDERED: PARO40TA2 PO (15:56)
[2021-03-16] MEDS ORDERED: HOME MED LIST COMPLETE! XX SCH (16:00)
[2021-03-16 16:44] LABS: INR 0.99; PROTHROMBIN TIME 13.5 SECONDS (12.7-14.5)
[2021-03-16 16:45] LABS: PARTIAL THROMBOPLASTIN TIME 28.8 SECONDS (25.9-37.0)
[2021-03-16] MEDS: ACETAMINOPHEN TAB 650MG DOSE (2X325MG) PO PRN (21:14)
[2021-03-17 01:19] VITALS: BP 123/67
[2021-03-17] MEDS: LEVOTHYROXINE 75MCG TABLET (0.075MG) PO SCH (05:41)
[2021-03-17 06:00] VITALS: BP 115/65
[2021-03-17 07:21] LABS: HEMATOCRIT 38.9 % (36.0-47.0); HEMOGLOBIN 12.7 g/dl (12.0-15.5); MEAN CORPUSCULAR HGB CONC 32.6 g/dl (32.0-36.5); MEAN CORPUSCULAR VOLUME 94.9 fl (80.0-96.0); PLATELET COUNT, AUTOMATED 291 10^3/uL (150-450); WHITE BLOOD COUNT 6.4 10^3/uL (4.0-10.0)
[2021-03-17 07:58] LABS: BLOOD UREA NITROGEN 12 MG/DL (7-18); CALCIUM LEVEL 9.5 MG/DL (8.8-10.2); CARBON DIOXIDE LEVEL 30 MEQ/L (21-32); CHLORIDE LEVEL 106 MEQ/L (98-107); CREATININE FOR GFR 0.65 MG/DL (0.55-1.30); FREE T4 1.12 NG/DL (0.76-1.46); GLOMERULAR FILTRATION RATE > 60.0 (>39); GLUCOSE, FASTING 88 MG/DL (70-100); POTASSIUM SERUM 3.7 MEQ/L (3.5-5.1); SODIUM LEVEL 143 MEQ/L (136-145)
[2021-03-17] MEDS: OMEPRAZOLE 20MG CAP PO SCH (08:08)
[2021-03-17] MEDS: ENALAPRIL MALEATE 10 MG TAB PO SCH (08:10)
[2021-03-17] MEDS: ASPIRIN 81MG ENTERIC TABLET PO SCH (08:10)
[2021-03-17] MEDS: PARoxetine 20MG TABLET PO SCH (08:11)
[2021-03-17] MEDS: FUROSEMIDE 40 MG TAB PO SCH (08:11)
[2021-03-17] MEDS: atenoloL 50 MG TAB PO SCH (08:12)
[2021-03-17] MEDS: SIMVASTATIN 40 MG TAB PO SCH (08:12)
[2021-03-17] MEDS: ENOXAPARIN 40MG/0.4ML SYRINGE (J1650 PER 10MG) SC SCH (08:13)
[2021-03-17] MEDS: NICOTINE 21MG/24HR 1 EA TRANSDERMAL TD SCH (08:13)
[2021-03-17 14:00] VITALS: BP 127/69
[2021-03-17] MEDS: ACETAMINOPHEN TAB 650MG DOSE (2X325MG) PO PRN (22:32)
[2021-03-18] MEDS: LEVOTHYROXINE 75MCG TABLET (0.075MG) PO SCH (05:23)
[2021-03-18] MEDS ORDERED: FLUBLOK(EGG FREE)(QUAD)INFLUENZA VACC 0.5ML SYRINGE 18YRS & OLDER IM SCH (09:00)
[2021-03-18] MEDS ORDERED: FLUBLOK(EGG FREE)(QUAD)INFLUENZA VACC 0.5ML SYRINGE 18YRS & OLDER IM ONE (09:00)
[2021-03-18] MEDS: ASPIRIN 81MG ENTERIC TABLET PO SCH (09:37)
[2021-03-18] MEDS: FUROSEMIDE 40 MG TAB PO SCH (09:37)
[2021-03-18] MEDS: PARoxetine 20MG TABLET PO SCH (09:37)
[2021-03-18] MEDS: OMEPRAZOLE 20MG CAP PO SCH (09:37)
[2021-03-18] MEDS: SIMVASTATIN 40 MG TAB PO SCH (09:37)
[2021-03-18] MEDS: ENALAPRIL MALEATE 10 MG TAB PO SCH (09:38)
[2021-03-18] MEDS: atenoloL 50 MG TAB PO SCH (09:38)
[2021-03-18] MEDS: ENOXAPARIN 40MG/0.4ML SYRINGE (J1650 PER 10MG) SC SCH (09:39)
[2021-03-18] MEDS: NICOTINE 21MG/24HR 1 EA TRANSDERMAL TD SCH (09:42)
[2021-03-18] MEDS: ACETAMINOPHEN TAB 650MG DOSE (2X325MG) PO PRN (21:23)
[2021-03-19] MEDS: LEVOTHYROXINE 75MCG TABLET (0.075MG) PO SCH (05:37)
[2021-03-19 06:00] VITALS: BP 131/65
[2021-03-19] MEDS: UNRESOLVED CLARIFICATION ENTRY XX SCH ×2 (08:25→08:47)
[2021-03-19 08:30] VITALS: BP 134/68
[2021-03-19] MEDS: ENOXAPARIN 40MG/0.4ML SYRINGE (J1650 PER 10MG) SC SCH (08:41)
[2021-03-19] MEDS: NICOTINE 21MG/24HR 1 EA TRANSDERMAL TD SCH (08:42)
[2021-03-19] MEDS: FUROSEMIDE 40 MG TAB PO SCH (08:43)
[2021-03-19] MEDS: PARoxetine 20MG TABLET PO SCH (08:43)
[2021-03-19] MEDS: OMEPRAZOLE 20MG CAP PO SCH (08:43)
[2021-03-19] MEDS: ASPIRIN 81MG ENTERIC TABLET PO SCH (08:43)
[2021-03-19] MEDS: atenoloL 50 MG TAB PO SCH (08:44)
[2021-03-19] MEDS: ENALAPRIL MALEATE 10 MG TAB PO SCH (08:46)
[2021-03-19] MEDS: SIMVASTATIN 40 MG TAB PO SCH (08:46)
[2021-03-19] MEDS: ACETAMINOPHEN TAB 650MG DOSE (2X325MG) PO PRN ×2 (08:46→20:36)
[2021-03-19 09:00] VITALS: BP 134/68
[2021-03-19 14:00] VITALS: BP 132/66
[2021-03-20] MEDS: UNRESOLVED CLARIFICATION ENTRY XX SCH (00:01)
[2021-03-20 06:00] VITALS: BP 126/66
[2021-03-20] MEDS: LEVOTHYROXINE 75MCG TABLET (0.075MG) PO SCH (06:05)
[2021-03-20] MEDS: FUROSEMIDE 40 MG TAB PO SCH (08:35)
[2021-03-20] MEDS: SIMVASTATIN 40 MG TAB PO SCH (08:35)
[2021-03-20] MEDS: ASPIRIN 81MG ENTERIC TABLET PO SCH (08:36)
[2021-03-20] MEDS: PARoxetine 20MG TABLET PO SCH (08:36)
[2021-03-20] MEDS: OMEPRAZOLE 20MG CAP PO SCH (08:36)
[2021-03-20] MEDS: ENALAPRIL MALEATE 10 MG TAB PO SCH (08:38)
[2021-03-20] MEDS: atenoloL 50 MG TAB PO SCH (08:38)
[2021-03-20] MEDS: NICOTINE 21MG/24HR 1 EA TRANSDERMAL TD SCH (08:39)
[2021-03-20] MEDS: ENOXAPARIN 40MG/0.4ML SYRINGE (J1650 PER 10MG) SC SCH (08:39)
[2021-03-20] MEDS ORDERED: PREVNAR 13 VACCINE SYRINGE IM ONE (09:00)
[2021-03-20] MEDS: ACETAMINOPHEN TAB 650MG DOSE (2X325MG) PO PRN (22:47)
[2021-03-21] MEDS: LEVOTHYROXINE 75MCG TABLET (0.075MG) PO SCH (05:20)
[2021-03-21 06:00] VITALS: BP 128/68
[2021-03-21] MEDS: NICOTINE 21MG/24HR 1 EA TRANSDERMAL TD SCH (08:41)
[2021-03-21] MEDS: ENOXAPARIN 40MG/0.4ML SYRINGE (J1650 PER 10MG) SC SCH (08:41)
[2021-03-21] MEDS: ASPIRIN 81MG ENTERIC TABLET PO SCH (08:41)
[2021-03-21] MEDS: SIMVASTATIN 40 MG TAB PO SCH (08:41)
[2021-03-21] MEDS: FUROSEMIDE 40 MG TAB PO SCH (08:41)
[2021-03-21] MEDS: OMEPRAZOLE 20MG CAP PO SCH (08:41)
[2021-03-21] MEDS: ENALAPRIL MALEATE 10 MG TAB PO SCH (08:42)
[2021-03-21] MEDS: PARoxetine 20MG TABLET PO SCH (08:42)
[2021-03-21] MEDS: atenoloL 50 MG TAB PO SCH (08:43)
[2021-03-21] MEDS: ACETAMINOPHEN TAB 650MG DOSE (2X325MG) PO PRN (20:36)
[2021-03-22] MEDS: LEVOTHYROXINE 75MCG TABLET (0.075MG) PO SCH (05:20)
[2021-03-22 06:00] VITALS: BP 134/71
[2021-03-22 09:45] VITALS: BP 134/71
[2021-03-22] MEDS: PARoxetine 20MG TABLET PO SCH (10:19)
[2021-03-22] MEDS: ACETAMINOPHEN TAB 650MG DOSE (2X325MG) PO PRN ×2 (10:20→21:48)
[2021-03-22] MEDS: ENOXAPARIN 40MG/0.4ML SYRINGE (J1650 PER 10MG) SC SCH (10:21)
[2021-03-22] MEDS: ASPIRIN 81MG ENTERIC TABLET PO SCH (10:21)
[2021-03-22] MEDS: SIMVASTATIN 40 MG TAB PO SCH (10:21)
[2021-03-22] MEDS: OMEPRAZOLE 20MG CAP PO SCH (10:21)
[2021-03-22] MEDS: NICOTINE 21MG/24HR 1 EA TRANSDERMAL TD SCH (10:23)
[2021-03-22] MEDS: FUROSEMIDE 40 MG TAB PO SCH (10:29)
[2021-03-22] MEDS: atenoloL 50 MG TAB PO SCH (10:31)
[2021-03-22] MEDS: ENALAPRIL MALEATE 10 MG TAB PO SCH (10:32)
[2021-03-23] MEDS: LEVOTHYROXINE 75MCG TABLET (0.075MG) PO SCH (05:27)
[2021-03-23 06:00] VITALS: BP 114/66
[2021-03-23 08:45] VITALS: BP 114/66
[2021-03-23] MEDS: PARoxetine 20MG TABLET PO SCH (09:10)
[2021-03-23] MEDS: OMEPRAZOLE 20MG CAP PO SCH (09:10)
[2021-03-23] MEDS: FUROSEMIDE 40 MG TAB PO SCH (09:11)
[2021-03-23] MEDS: atenoloL 50 MG TAB PO SCH (09:12)
[2021-03-23] MEDS: SIMVASTATIN 40 MG TAB PO SCH (09:12)
[2021-03-23] MEDS: ENALAPRIL MALEATE 10 MG TAB PO SCH (09:13)
[2021-03-23] MEDS: NICOTINE 21MG/24HR 1 EA TRANSDERMAL TD SCH (09:13)
[2021-03-23] MEDS: ENOXAPARIN 40MG/0.4ML SYRINGE (J1650 PER 10MG) SC SCH (09:14)
[2021-03-23] MEDS: ASPIRIN 81MG ENTERIC TABLET PO SCH (09:15)
[2021-03-23] MEDS: ACETAMINOPHEN TAB 650MG DOSE (2X325MG) PO PRN (20:54)
[2021-03-24] MEDS: LEVOTHYROXINE 75MCG TABLET (0.075MG) PO SCH (05:26)
[2021-03-24 06:00] VITALS: BP 111/67
[2021-03-24 08:30] VITALS: BP 111/67
[2021-03-24] MEDS: NICOTINE 21MG/24HR 1 EA TRANSDERMAL TD SCH (09:40)
[2021-03-24] MEDS: ENOXAPARIN 40MG/0.4ML SYRINGE (J1650 PER 10MG) SC SCH (09:41)
[2021-03-24] MEDS: ASPIRIN 81MG ENTERIC TABLET PO SCH (09:41)
[2021-03-24] MEDS: OMEPRAZOLE 20MG CAP PO SCH (09:41)
[2021-03-24] MEDS: atenoloL 50 MG TAB PO SCH (09:42)
[2021-03-24] MEDS: PARoxetine 20MG TABLET PO SCH (09:42)
[2021-03-24] MEDS: SIMVASTATIN 40 MG TAB PO SCH (09:43)
[2021-03-24] MEDS: FUROSEMIDE 40 MG TAB PO SCH (09:43)
[2021-03-24] MEDS: ENALAPRIL MALEATE 10 MG TAB PO SCH (09:43)
[2021-03-24] MEDS: ACETAMINOPHEN TAB 650MG DOSE (2X325MG) PO PRN (21:01)
[2021-03-25 05:02] VITALS: BP 132/61
[2021-03-25] MEDS: LEVOTHYROXINE 75MCG TABLET (0.075MG) PO SCH (06:15)
[2021-03-25] MEDS: ASPIRIN 81MG ENTERIC TABLET PO SCH (08:57)
[2021-03-25] MEDS: PARoxetine 20MG TABLET PO SCH (08:58)
[2021-03-25] MEDS: OMEPRAZOLE 20MG CAP PO SCH (08:58)
[2021-03-25] MEDS: SIMVASTATIN 40 MG TAB PO SCH (08:58)
[2021-03-25] MEDS: ENOXAPARIN 40MG/0.4ML SYRINGE (J1650 PER 10MG) SC SCH (08:58)
[2021-03-25] MEDS: NICOTINE 21MG/24HR 1 EA TRANSDERMAL TD SCH (08:58)
[2021-03-25] MEDS: FUROSEMIDE 40 MG TAB PO SCH (09:00)
[2021-03-25] MEDS: ENALAPRIL MALEATE 10 MG TAB PO SCH (09:00)
[2021-03-25] MEDS: atenoloL 50 MG TAB PO SCH (09:00)
[2021-03-25] MEDS: ACETAMINOPHEN TAB 650MG DOSE (2X325MG) PO PRN (20:34)
[2021-03-26] MEDS: LEVOTHYROXINE 75MCG TABLET (0.075MG) PO SCH (05:31)
[2021-03-26 06:00] VITALS: BP 126/81
[2021-03-26] MEDS: ENOXAPARIN 40MG/0.4ML SYRINGE (J1650 PER 10MG) SC SCH (11:00)
[2021-03-26] MEDS: FUROSEMIDE 40 MG TAB PO SCH (11:00)
[2021-03-26] MEDS: OMEPRAZOLE 20MG CAP PO SCH (11:01)
[2021-03-26] MEDS: SIMVASTATIN 40 MG TAB PO SCH (11:01)
[2021-03-26] MEDS: PARoxetine 20MG TABLET PO SCH (11:01)
[2021-03-26] MEDS: ENALAPRIL MALEATE 10 MG TAB PO SCH (11:01)
[2021-03-26] MEDS: ASPIRIN 81MG ENTERIC TABLET PO SCH (11:01)
[2021-03-26] MEDS: NICOTINE 21MG/24HR 1 EA TRANSDERMAL TD SCH (11:02)
[2021-03-26] MEDS: atenoloL 50 MG TAB PO SCH (11:02)
[2021-03-26] MEDS: ACETAMINOPHEN TAB 650MG DOSE (2X325MG) PO PRN (22:59)
[2021-03-27 05:41] VITALS: BP 139/80
[2021-03-27] MEDS: LEVOTHYROXINE 75MCG TABLET (0.075MG) PO SCH (05:51)
[2021-03-27] MEDS: NICOTINE 21MG/24HR 1 EA TRANSDERMAL TD SCH (08:50)
[2021-03-27] MEDS: OMEPRAZOLE 20MG CAP PO SCH (08:51)
[2021-03-27] MEDS: ENOXAPARIN 40MG/0.4ML SYRINGE (J1650 PER 10MG) SC SCH (08:51)
[2021-03-27] MEDS: PARoxetine 20MG TABLET PO SCH (08:51)
[2021-03-27] MEDS: FUROSEMIDE 40 MG TAB PO SCH (08:52)
[2021-03-27] MEDS: ASPIRIN 81MG ENTERIC TABLET PO SCH (08:52)
[2021-03-27] MEDS: ENALAPRIL MALEATE 10 MG TAB PO SCH (08:52)
[2021-03-27] MEDS: SIMVASTATIN 40 MG TAB PO SCH (08:52)
[2021-03-27] MEDS: atenoloL 50 MG TAB PO SCH (08:52)
[2021-03-27] MEDS: ACETAMINOPHEN TAB 650MG DOSE (2X325MG) PO PRN (21:09)
[2021-03-28 06:00] VITALS: BP 110/65
[2021-03-28] MEDS: LEVOTHYROXINE 75MCG TABLET (0.075MG) PO SCH (06:15)
[2021-03-28] MEDS: NICOTINE 21MG/24HR 1 EA TRANSDERMAL TD SCH (10:20)
[2021-03-28] MEDS: ENOXAPARIN 40MG/0.4ML SYRINGE (J1650 PER 10MG) SC SCH (10:20)
[2021-03-28] MEDS: PARoxetine 20MG TABLET PO SCH (10:21)
[2021-03-28] MEDS: ASPIRIN 81MG ENTERIC TABLET PO SCH (10:21)
[2021-03-28] MEDS: OMEPRAZOLE 20MG CAP PO SCH (10:21)
[2021-03-28] MEDS: ENALAPRIL MALEATE 10 MG TAB PO SCH ×2 (10:23→10:31)
[2021-03-28] MEDS: FUROSEMIDE 40 MG TAB PO SCH (10:25)
[2021-03-28] MEDS: SIMVASTATIN 40 MG TAB PO SCH (10:26)
[2021-03-28] MEDS: atenoloL 50 MG TAB PO SCH (10:31)
[2021-03-29 06:00] VITALS: BP 124/73
[2021-03-29] MEDS: LEVOTHYROXINE 75MCG TABLET (0.075MG) PO SCH (06:04)
[2021-03-29 08:00] VITALS: BP 124/71
[2021-03-29] MEDS: ENOXAPARIN 40MG/0.4ML SYRINGE (J1650 PER 10MG) SC SCH (08:49)
[2021-03-29] MEDS: PARoxetine 20MG TABLET PO SCH (08:49)
[2021-03-29] MEDS: ACETAMINOPHEN TAB 650MG DOSE (2X325MG) PO PRN ×2 (08:50→22:05)
[2021-03-29] MEDS: OMEPRAZOLE 20MG CAP PO SCH (08:51)
[2021-03-29] MEDS: ASPIRIN 81MG ENTERIC TABLET PO SCH (08:51)
[2021-03-29] MEDS: ENALAPRIL MALEATE 10 MG TAB PO SCH (08:51)
[2021-03-29] MEDS: FUROSEMIDE 40 MG TAB PO SCH (08:52)
[2021-03-29] MEDS: atenoloL 50 MG TAB PO SCH (08:52)
[2021-03-29] MEDS: SIMVASTATIN 40 MG TAB PO SCH (08:52)
[2021-03-29] MEDS: NICOTINE 21MG/24HR 1 EA TRANSDERMAL TD SCH (08:53)
[2021-03-30] MEDS: LEVOTHYROXINE 75MCG TABLET (0.075MG) PO SCH (05:33)
[2021-03-30 06:15] VITALS: BP 120/66
[2021-03-30] MEDS: OMEPRAZOLE 20MG CAP PO SCH (08:15)
[2021-03-30] MEDS: ENOXAPARIN 40MG/0.4ML SYRINGE (J1650 PER 10MG) SC SCH (08:15)
[2021-03-30] MEDS: PARoxetine 20MG TABLET PO SCH (08:15)
[2021-03-30] MEDS: NICOTINE 21MG/24HR 1 EA TRANSDERMAL TD SCH (08:15)
[2021-03-30] MEDS: ASPIRIN 81MG ENTERIC TABLET PO SCH (08:16)
[2021-03-30] MEDS: FUROSEMIDE 40 MG TAB PO SCH (08:16)
[2021-03-30] MEDS: SIMVASTATIN 40 MG TAB PO SCH (08:16)
[2021-03-30] MEDS: ENALAPRIL MALEATE 10 MG TAB PO SCH (08:18)
[2021-03-30] MEDS: atenoloL 50 MG TAB PO SCH (08:19)
[2021-03-30] MEDS: ACETAMINOPHEN TAB 650MG DOSE (2X325MG) PO PRN (22:34)
[2021-03-31 06:00] VITALS: BP 106/86
[2021-03-31] MEDS: LEVOTHYROXINE 75MCG TABLET (0.075MG) PO SCH (06:12)
[2021-03-31] MEDS: FUROSEMIDE 40 MG TAB PO SCH (09:00)
[2021-03-31] MEDS: atenoloL 50 MG TAB PO SCH (09:00)
[2021-03-31] MEDS: ENALAPRIL MALEATE 10 MG TAB PO SCH (09:00)
[2021-03-31] MEDS: ENOXAPARIN 40MG/0.4ML SYRINGE (J1650 PER 10MG) SC SCH (09:10)
[2021-03-31] MEDS: ASPIRIN 81MG ENTERIC TABLET PO SCH (09:11)
[2021-03-31] MEDS: NICOTINE 21MG/24HR 1 EA TRANSDERMAL TD SCH (09:11)
[2021-03-31] MEDS: PARoxetine 20MG TABLET PO SCH (09:11)
[2021-03-31] MEDS: OMEPRAZOLE 20MG CAP PO SCH (09:12)
[2021-03-31] MEDS: SIMVASTATIN 40 MG TAB PO SCH (09:12)
[2021-03-31 09:17] VITALS: BP 96/54
[2021-04-01 05:19] VITALS: BP 123/96
[2021-04-01] MEDS: LEVOTHYROXINE 75MCG TABLET (0.075MG) PO SCH (05:38)
[2021-04-01] MEDS: OMEPRAZOLE 20MG CAP PO SCH (09:36)
[2021-04-01] MEDS: ASPIRIN 81MG ENTERIC TABLET PO SCH (09:36)
[2021-04-01] MEDS: PARoxetine 20MG TABLET PO SCH (09:36)
[2021-04-01] MEDS: SIMVASTATIN 40 MG TAB PO SCH (09:37)
[2021-04-01] MEDS: ENALAPRIL MALEATE 10 MG TAB PO SCH (09:37)
[2021-04-01] MEDS: atenoloL 50 MG TAB PO SCH (09:38)
[2021-04-01] MEDS: FUROSEMIDE 40 MG TAB PO SCH (09:39)
[2021-04-01] MEDS: NICOTINE 21MG/24HR 1 EA TRANSDERMAL TD SCH (09:39)
[2021-04-01] MEDS: ENOXAPARIN 40MG/0.4ML SYRINGE (J1650 PER 10MG) SC SCH (09:39)
[2021-04-01] MEDS: ACETAMINOPHEN TAB 650MG DOSE (2X325MG) PO PRN (22:28)
[2021-04-02] MEDS: LEVOTHYROXINE 75MCG TABLET (0.075MG) PO SCH (05:31)
[2021-04-02 06:00] VITALS: BP 111/71
[2021-04-02] MEDS: NICOTINE 21MG/24HR 1 EA TRANSDERMAL TD SCH (08:39)
[2021-04-02] MEDS: OMEPRAZOLE 20MG CAP PO SCH (08:39)
[2021-04-02] MEDS: ENOXAPARIN 40MG/0.4ML SYRINGE (J1650 PER 10MG) SC SCH (08:39)
[2021-04-02] MEDS: FUROSEMIDE 40 MG TAB PO SCH (08:40)
[2021-04-02] MEDS: ASPIRIN 81MG ENTERIC TABLET PO SCH (08:40)
[2021-04-02] MEDS: ENALAPRIL MALEATE 10 MG TAB PO SCH (08:40)
[2021-04-02] MEDS: SIMVASTATIN 40 MG TAB PO SCH (08:40)
[2021-04-02] MEDS: PARoxetine 20MG TABLET PO SCH (08:40)
[2021-04-02] MEDS: atenoloL 50 MG TAB PO SCH (08:41)
[2021-04-02] MEDS: ACETAMINOPHEN TAB 650MG DOSE (2X325MG) PO PRN ×2 (08:48→22:53)
[2021-04-03] MEDS: LEVOTHYROXINE 75MCG TABLET (0.075MG) PO SCH (05:35)
[2021-04-03 06:00] VITALS: BP 116/70
[2021-04-03] MEDS: ASPIRIN 81MG ENTERIC TABLET PO SCH (08:27)
[2021-04-03] MEDS: FUROSEMIDE 40 MG TAB PO SCH (08:27)
[2021-04-03] MEDS: PARoxetine 20MG TABLET PO SCH (08:27)
[2021-04-03] MEDS: atenoloL 50 MG TAB PO SCH (08:27)
[2021-04-03] MEDS: OMEPRAZOLE 20MG CAP PO SCH (08:27)
[2021-04-03] MEDS: ENOXAPARIN 40MG/0.4ML SYRINGE (J1650 PER 10MG) SC SCH (08:27)
[2021-04-03] MEDS: SIMVASTATIN 40 MG TAB PO SCH (08:27)
[2021-04-03] MEDS: NICOTINE 21MG/24HR 1 EA TRANSDERMAL TD SCH (08:28)
[2021-04-03] MEDS: ENALAPRIL MALEATE 10 MG TAB PO SCH (08:28)
[2021-04-03] MEDS: ACETAMINOPHEN TAB 650MG DOSE (2X325MG) PO PRN (08:30)
[2021-04-03] MEDS: ACETAMINOPHEN 650MG ER TAB (TYLENOL ARTHRITIS) PO SCH ×2 (15:15→21:32)
[2021-04-03] MEDS: VANICREAM MOISTURIZING SKIN CREAM 113GM TUBE TOP SCH ×2 (15:16→21:32)
[2021-04-04] MEDS: ACETAMINOPHEN 650MG ER TAB (TYLENOL ARTHRITIS) PO SCH ×3 (05:59→21:04)
[2021-04-04 06:00] VITALS: BP 112/69
[2021-04-04] MEDS: LEVOTHYROXINE 75MCG TABLET (0.075MG) PO SCH (06:00)
[2021-04-04] MEDS: NICOTINE 21MG/24HR 1 EA TRANSDERMAL TD SCH (08:05)
[2021-04-04] MEDS: ENOXAPARIN 40MG/0.4ML SYRINGE (J1650 PER 10MG) SC SCH (08:06)
[2021-04-04] MEDS: SIMVASTATIN 40 MG TAB PO SCH (08:06)
[2021-04-04] MEDS: OMEPRAZOLE 20MG CAP PO SCH (08:06)
[2021-04-04] MEDS: PARoxetine 20MG TABLET PO SCH (08:06)
[2021-04-04] MEDS: ASPIRIN 81MG ENTERIC TABLET PO SCH (08:07)
[2021-04-04] MEDS: ENALAPRIL MALEATE 10 MG TAB PO SCH (08:07)
[2021-04-04] MEDS: FUROSEMIDE 40 MG TAB PO SCH (08:07)
[2021-04-04] MEDS: atenoloL 50 MG TAB PO SCH (08:07)
[2021-04-04] MEDS: VANICREAM MOISTURIZING SKIN CREAM 113GM TUBE TOP SCH ×2 (08:08→21:04)
[2021-04-04] MEDS ORDERED: diphenhydrAMINE CREAM 30GM TOP PRN (21:40)
[2021-04-04] MEDS ORDERED: FAMOTIDINE 20 MG TAB PO ONE (21:40)
[2021-04-04] MEDS: diphenhydrAMINE 25MG CAP PO PRN (21:55)
[2021-04-05] MEDS: ACETAMINOPHEN 650MG ER TAB (TYLENOL ARTHRITIS) PO SCH ×3 (05:34→20:53)
[2021-04-05] MEDS: LEVOTHYROXINE 75MCG TABLET (0.075MG) PO SCH (05:34)
[2021-04-05 06:00] VITALS: BP 109/67
[2021-04-05] MEDS: ENOXAPARIN 40MG/0.4ML SYRINGE (J1650 PER 10MG) SC SCH (09:27)
[2021-04-05] MEDS: VANICREAM MOISTURIZING SKIN CREAM 113GM TUBE TOP SCH ×2 (09:27→20:53)
[2021-04-05] MEDS: SIMVASTATIN 40 MG TAB PO SCH (09:28)
[2021-04-05] MEDS: PARoxetine 20MG TABLET PO SCH (09:28)
[2021-04-05] MEDS: OMEPRAZOLE 20MG CAP PO SCH (09:28)
[2021-04-05] MEDS: ASPIRIN 81MG ENTERIC TABLET PO SCH (09:28)
[2021-04-05] MEDS: ENALAPRIL MALEATE 10 MG TAB PO SCH (09:29)
[2021-04-05] MEDS: FUROSEMIDE 40 MG TAB PO SCH (09:29)
[2021-04-05] MEDS: atenoloL 50 MG TAB PO SCH (09:30)
[2021-04-06] MEDS: LEVOTHYROXINE 75MCG TABLET (0.075MG) PO SCH (05:24)
[2021-04-06] MEDS: ACETAMINOPHEN 650MG ER TAB (TYLENOL ARTHRITIS) PO SCH ×3 (05:24→20:45)
[2021-04-06 06:00] VITALS: BP 117/58
[2021-04-06] MEDS: ENALAPRIL MALEATE 10 MG TAB PO SCH (09:00)
[2021-04-06] MEDS: ENOXAPARIN 40MG/0.4ML SYRINGE (J1650 PER 10MG) SC SCH (09:00)
[2021-04-06] MEDS: atenoloL 50 MG TAB PO SCH (09:00)
[2021-04-06] MEDS: SIMVASTATIN 40 MG TAB PO SCH (09:01)
[2021-04-06] MEDS: OMEPRAZOLE 20MG CAP PO SCH (09:01)
[2021-04-06] MEDS: FUROSEMIDE 40 MG TAB PO SCH (09:01)
[2021-04-06] MEDS: ASPIRIN 81MG ENTERIC TABLET PO SCH (09:01)
[2021-04-06] MEDS: PARoxetine 20MG TABLET PO SCH (09:01)
[2021-04-06] MEDS: diphenhydrAMINE 25MG CAP PO PRN (09:01)
[2021-04-06] MEDS: VANICREAM MOISTURIZING SKIN CREAM 113GM TUBE TOP SCH ×2 (09:05→20:44)
[2021-04-06 09:15] VITALS: BP 98/65
[2021-04-07] MEDS: LEVOTHYROXINE 75MCG TABLET (0.075MG) PO SCH (05:24)
[2021-04-07] MEDS: ACETAMINOPHEN 650MG ER TAB (TYLENOL ARTHRITIS) PO SCH ×3 (05:24→20:56)
[2021-04-07 06:00] VITALS: BP 129/61
[2021-04-07] MEDS: ENALAPRIL MALEATE 10 MG TAB PO SCH (08:42)
[2021-04-07] MEDS: FUROSEMIDE 40 MG TAB PO SCH (08:42)
[2021-04-07] MEDS: SIMVASTATIN 40 MG TAB PO SCH (08:42)
[2021-04-07] MEDS: OMEPRAZOLE 20MG CAP PO SCH (08:42)
[2021-04-07] MEDS: atenoloL 50 MG TAB PO SCH (08:43)
[2021-04-07] MEDS: ENOXAPARIN 40MG/0.4ML SYRINGE (J1650 PER 10MG) SC SCH (08:43)
[2021-04-07] MEDS: PARoxetine 20MG TABLET PO SCH (08:43)
[2021-04-07] MEDS: ASPIRIN 81MG ENTERIC TABLET PO SCH (08:43)
[2021-04-07] MEDS: VANICREAM MOISTURIZING SKIN CREAM 113GM TUBE TOP SCH ×2 (08:44→20:57)
[2021-04-08] MEDS: LEVOTHYROXINE 75MCG TABLET (0.075MG) PO SCH (05:16)
[2021-04-08] MEDS: ACETAMINOPHEN 650MG ER TAB (TYLENOL ARTHRITIS) PO SCH ×3 (05:16→20:57)
[2021-04-08 06:00] VITALS: BP 116/77
[2021-04-08] MEDS: ENALAPRIL MALEATE 10 MG TAB PO SCH (09:00)
[2021-04-08] MEDS: atenoloL 50 MG TAB PO SCH (09:00)
[2021-04-08] MEDS: ASPIRIN 81MG ENTERIC TABLET PO SCH (09:58)
[2021-04-08] MEDS: PARoxetine 20MG TABLET PO SCH (09:58)
[2021-04-08] MEDS: FUROSEMIDE 40 MG TAB PO SCH (09:58)
[2021-04-08] MEDS: OMEPRAZOLE 20MG CAP PO SCH (09:58)
[2021-04-08] MEDS: SIMVASTATIN 40 MG TAB PO SCH (09:59)
[2021-04-08] MEDS: ENOXAPARIN 40MG/0.4ML SYRINGE (J1650 PER 10MG) SC SCH (09:59)
[2021-04-08] MEDS: VANICREAM MOISTURIZING SKIN CREAM 113GM TUBE TOP SCH ×2 (10:04→20:57)
[2021-04-09] MEDS: ACETAMINOPHEN 650MG ER TAB (TYLENOL ARTHRITIS) PO SCH ×3 (05:41→20:59)
[2021-04-09] MEDS: LEVOTHYROXINE 75MCG TABLET (0.075MG) PO SCH (05:41)
[2021-04-09 06:00] VITALS: BP 120/80
[2021-04-09] MEDS: ENALAPRIL MALEATE 10 MG TAB PO SCH (09:49)
[2021-04-09] MEDS: PARoxetine 20MG TABLET PO SCH (09:49)
[2021-04-09] MEDS: SIMVASTATIN 40 MG TAB PO SCH (09:50)
[2021-04-09] MEDS: atenoloL 50 MG TAB PO SCH (09:50)
[2021-04-09] MEDS: VANICREAM MOISTURIZING SKIN CREAM 113GM TUBE TOP SCH ×2 (09:50→21:00)
[2021-04-09] MEDS: OMEPRAZOLE 20MG CAP PO SCH (09:50)
[2021-04-09] MEDS: FUROSEMIDE 40 MG TAB PO SCH (09:50)
[2021-04-09] MEDS: ASPIRIN 81MG ENTERIC TABLET PO SCH (09:50)
[2021-04-09] MEDS: ENOXAPARIN 40MG/0.4ML SYRINGE (J1650 PER 10MG) SC SCH (09:51)
[2021-04-10 06:00] VITALS: BP 134/67
[2021-04-10] MEDS: ACETAMINOPHEN 650MG ER TAB (TYLENOL ARTHRITIS) PO SCH ×3 (06:03→20:52)
[2021-04-10] MEDS: LEVOTHYROXINE 75MCG TABLET (0.075MG) PO SCH (06:03)
[2021-04-10] MEDS: FUROSEMIDE 40 MG TAB PO SCH (09:00)
[2021-04-10] MEDS: ENALAPRIL MALEATE 10 MG TAB PO SCH (09:00)
[2021-04-10] MEDS: atenoloL 50 MG TAB PO SCH (09:00)
[2021-04-10] MEDS: OMEPRAZOLE 20MG CAP PO SCH (09:42)
[2021-04-10] MEDS: ENOXAPARIN 40MG/0.4ML SYRINGE (J1650 PER 10MG) SC SCH (09:42)
[2021-04-10] MEDS: ASPIRIN 81MG ENTERIC TABLET PO SCH (09:42)
[2021-04-10] MEDS: SIMVASTATIN 40 MG TAB PO SCH (09:42)
[2021-04-10] MEDS: PARoxetine 20MG TABLET PO SCH (09:42)
[2021-04-10] MEDS: VANICREAM MOISTURIZING SKIN CREAM 113GM TUBE TOP SCH ×2 (09:43→20:52)
[2021-04-11] MEDS: LEVOTHYROXINE 75MCG TABLET (0.075MG) PO SCH (05:58)
[2021-04-11] MEDS: ACETAMINOPHEN 650MG ER TAB (TYLENOL ARTHRITIS) PO SCH ×3 (05:58→21:05)
[2021-04-11 06:00] VITALS: BP 136/71
[2021-04-11] MEDS: SIMVASTATIN 40 MG TAB PO SCH (09:03)
[2021-04-11] MEDS: ASPIRIN 81MG ENTERIC TABLET PO SCH (09:03)
[2021-04-11] MEDS: OMEPRAZOLE 20MG CAP PO SCH (09:03)
[2021-04-11] MEDS: atenoloL 50 MG TAB PO SCH (09:04)
[2021-04-11] MEDS: ENALAPRIL MALEATE 10 MG TAB PO SCH (09:04)
[2021-04-11] MEDS: PARoxetine 20MG TABLET PO SCH (09:04)
[2021-04-11] MEDS: FUROSEMIDE 40 MG TAB PO SCH (09:05)
[2021-04-11] MEDS: ENOXAPARIN 40MG/0.4ML SYRINGE (J1650 PER 10MG) SC SCH (09:05)
[2021-04-11] MEDS: VANICREAM MOISTURIZING SKIN CREAM 113GM TUBE TOP SCH ×2 (09:06→21:05)
[2021-04-12 06:00] VITALS: BP 127/70
[2021-04-12] MEDS: LEVOTHYROXINE 75MCG TABLET (0.075MG) PO SCH (06:10)
[2021-04-12] MEDS: ACETAMINOPHEN 650MG ER TAB (TYLENOL ARTHRITIS) PO SCH ×3 (06:10→22:06)
[2021-04-12] MEDS: FUROSEMIDE 40 MG TAB PO SCH (08:33)
[2021-04-12] MEDS: SIMVASTATIN 40 MG TAB PO SCH (08:35)
[2021-04-12] MEDS: PARoxetine 20MG TABLET PO SCH (08:35)
[2021-04-12] MEDS: ENALAPRIL MALEATE 10 MG TAB PO SCH (08:35)
[2021-04-12] MEDS: atenoloL 50 MG TAB PO SCH (08:35)
[2021-04-12] MEDS: OMEPRAZOLE 20MG CAP PO SCH (08:36)
[2021-04-12] MEDS: ENOXAPARIN 40MG/0.4ML SYRINGE (J1650 PER 10MG) SC SCH (08:36)
[2021-04-12] MEDS: VANICREAM MOISTURIZING SKIN CREAM 113GM TUBE TOP SCH ×2 (08:36→22:07)
[2021-04-12] MEDS: ASPIRIN 81MG ENTERIC TABLET PO SCH (08:37)
[2021-04-13] MEDS: ACETAMINOPHEN 650MG ER TAB (TYLENOL ARTHRITIS) PO SCH ×3 (05:32→21:12)
[2021-04-13] MEDS: LEVOTHYROXINE 75MCG TABLET (0.075MG) PO SCH (05:32)
[2021-04-13 06:00] VITALS: BP_SYST 119; BP_SYST 125; BP_DIAS 62; BP_DIAS 90
[2021-04-13] MEDS: FUROSEMIDE 40 MG TAB PO SCH (09:04)
[2021-04-13] MEDS: OMEPRAZOLE 20MG CAP PO SCH (09:04)
[2021-04-13] MEDS: SIMVASTATIN 40 MG TAB PO SCH (09:04)
[2021-04-13] MEDS: ASPIRIN 81MG ENTERIC TABLET PO SCH (09:04)
[2021-04-13] MEDS: PARoxetine 20MG TABLET PO SCH (09:04)
[2021-04-13] MEDS: ENOXAPARIN 40MG/0.4ML SYRINGE (J1650 PER 10MG) SC SCH (09:05)
[2021-04-13] MEDS: ENALAPRIL MALEATE 10 MG TAB PO SCH (09:05)
[2021-04-13] MEDS: VANICREAM MOISTURIZING SKIN CREAM 113GM TUBE TOP SCH ×2 (09:06→21:12)
[2021-04-13] MEDS: atenoloL 50 MG TAB PO SCH (09:06)
[2021-04-14] MEDS: ACETAMINOPHEN 650MG ER TAB (TYLENOL ARTHRITIS) PO SCH ×3 (05:25→22:04)
[2021-04-14] MEDS: LEVOTHYROXINE 75MCG TABLET (0.075MG) PO SCH (05:25)
[2021-04-14 06:00] VITALS: BP 114/69
[2021-04-14] MEDS: OMEPRAZOLE 20MG CAP PO SCH (08:55)
[2021-04-14] MEDS: ASPIRIN 81MG ENTERIC TABLET PO SCH (08:55)
[2021-04-14] MEDS: ENOXAPARIN 40MG/0.4ML SYRINGE (J1650 PER 10MG) SC SCH (08:55)
[2021-04-14] MEDS: SIMVASTATIN 40 MG TAB PO SCH (08:55)
[2021-04-14] MEDS: PARoxetine 20MG TABLET PO SCH (08:56)
[2021-04-14] MEDS: FUROSEMIDE 40 MG TAB PO SCH (08:56)
[2021-04-14] MEDS: ENALAPRIL MALEATE 10 MG TAB PO SCH (08:57)
[2021-04-14] MEDS: atenoloL 50 MG TAB PO SCH (08:57)
[2021-04-14] MEDS: VANICREAM MOISTURIZING SKIN CREAM 113GM TUBE TOP SCH ×2 (08:58→20:45)
[2021-04-15 06:00] VITALS: BP 116/67
[2021-04-15] MEDS: LEVOTHYROXINE 75MCG TABLET (0.075MG) PO SCH (06:24)
[2021-04-15] MEDS: ACETAMINOPHEN 650MG ER TAB (TYLENOL ARTHRITIS) PO SCH ×3 (06:24→21:48)
[2021-04-15] MEDS: atenoloL 50 MG TAB PO SCH (09:00)
[2021-04-15] MEDS: ENALAPRIL MALEATE 10 MG TAB PO SCH (09:00)
[2021-04-15] MEDS: ENOXAPARIN 40MG/0.4ML SYRINGE (J1650 PER 10MG) SC SCH (09:51)
[2021-04-15] MEDS: ASPIRIN 81MG ENTERIC TABLET PO SCH (09:51)
[2021-04-15] MEDS: VANICREAM MOISTURIZING SKIN CREAM 113GM TUBE TOP SCH ×2 (09:51→21:49)
[2021-04-15] MEDS: OMEPRAZOLE 20MG CAP PO SCH (09:53)
[2021-04-15] MEDS: PARoxetine 20MG TABLET PO SCH (09:53)
[2021-04-15] MEDS: SIMVASTATIN 40 MG TAB PO SCH (09:53)
[2021-04-15] MEDS: FUROSEMIDE 40 MG TAB PO SCH (10:01)
[2021-04-15 10:09] VITALS: BP 90/61
[2021-04-16 06:00] VITALS: BP 125/97
[2021-04-16] MEDS: ACETAMINOPHEN 650MG ER TAB (TYLENOL ARTHRITIS) PO SCH ×3 (06:11→21:14)
[2021-04-16] MEDS: LEVOTHYROXINE 75MCG TABLET (0.075MG) PO SCH (06:11)
[2021-04-16] MEDS: PARoxetine 20MG TABLET PO SCH (09:45)
[2021-04-16] MEDS: ASPIRIN 81MG ENTERIC TABLET PO SCH (09:45)
[2021-04-16] MEDS: OMEPRAZOLE 20MG CAP PO SCH (09:45)
[2021-04-16] MEDS: ENOXAPARIN 40MG/0.4ML SYRINGE (J1650 PER 10MG) SC SCH (09:45)
[2021-04-16] MEDS: SIMVASTATIN 40 MG TAB PO SCH (09:48)
[2021-04-16] MEDS: FUROSEMIDE 40 MG TAB PO SCH (09:48)
[2021-04-16] MEDS: VANICREAM MOISTURIZING SKIN CREAM 113GM TUBE TOP SCH ×2 (09:49→21:00)
[2021-04-16] MEDS: atenoloL 50 MG TAB PO SCH (10:24)
[2021-04-16] MEDS: ENALAPRIL MALEATE 10 MG TAB PO SCH (10:25)
[2021-04-17 06:00] VITALS: BP 140/73
[2021-04-17] MEDS: ACETAMINOPHEN 650MG ER TAB (TYLENOL ARTHRITIS) PO SCH ×3 (06:19→21:17)
[2021-04-17] MEDS: LEVOTHYROXINE 75MCG TABLET (0.075MG) PO SCH (06:19)
[2021-04-17] MEDS: ENALAPRIL MALEATE 10 MG TAB PO SCH (09:00)
[2021-04-17] MEDS: ENOXAPARIN 40MG/0.4ML SYRINGE (J1650 PER 10MG) SC SCH (09:28)
[2021-04-17] MEDS: ASPIRIN 81MG ENTERIC TABLET PO SCH (09:28)
[2021-04-17] MEDS: FUROSEMIDE 40 MG TAB PO SCH (09:29)
[2021-04-17] MEDS: SIMVASTATIN 40 MG TAB PO SCH (09:29)
[2021-04-17] MEDS: OMEPRAZOLE 20MG CAP PO SCH (09:29)
[2021-04-17] MEDS: PARoxetine 20MG TABLET PO SCH (09:29)
[2021-04-17] MEDS: VANICREAM MOISTURIZING SKIN CREAM 113GM TUBE TOP SCH ×2 (10:58→21:18)
[2021-04-18 05:10] VITALS: BP 126/63
[2021-04-18] MEDS: ACETAMINOPHEN 650MG ER TAB (TYLENOL ARTHRITIS) PO SCH ×3 (05:39→21:05)
[2021-04-18] MEDS: LEVOTHYROXINE 75MCG TABLET (0.075MG) PO SCH (05:39)
[2021-04-18] MEDS: PARoxetine 20MG TABLET PO SCH (08:21)
[2021-04-18] MEDS: ASPIRIN 81MG ENTERIC TABLET PO SCH (08:21)
[2021-04-18] MEDS: SIMVASTATIN 40 MG TAB PO SCH (08:21)
[2021-04-18] MEDS: OMEPRAZOLE 20MG CAP PO SCH (08:21)
[2021-04-18] MEDS: ENALAPRIL MALEATE 10 MG TAB PO SCH (08:22)
[2021-04-18] MEDS: FUROSEMIDE 40 MG TAB PO SCH (08:22)
[2021-04-18] MEDS: VANICREAM MOISTURIZING SKIN CREAM 113GM TUBE TOP SCH ×2 (08:23→21:05)
[2021-04-18] MEDS: ENOXAPARIN 40MG/0.4ML SYRINGE (J1650 PER 10MG) SC SCH (08:23)
[2021-04-19] MEDS: ACETAMINOPHEN 650MG ER TAB (TYLENOL ARTHRITIS) PO SCH ×3 (05:11→21:08)
[2021-04-19] MEDS: LEVOTHYROXINE 75MCG TABLET (0.075MG) PO SCH (05:11)
[2021-04-19 06:00] VITALS: BP 133/62
[2021-04-19 08:00] VITALS: BP 132/72
[2021-04-19] MEDS: VANICREAM MOISTURIZING SKIN CREAM 113GM TUBE TOP SCH ×2 (09:31→21:08)
[2021-04-19] MEDS: ASPIRIN 81MG ENTERIC TABLET PO SCH (09:32)
[2021-04-19] MEDS: OMEPRAZOLE 20MG CAP PO SCH (09:32)
[2021-04-19] MEDS: ENOXAPARIN 40MG/0.4ML SYRINGE (J1650 PER 10MG) SC SCH (09:32)
[2021-04-19] MEDS: FUROSEMIDE 40 MG TAB PO SCH (09:33)
[2021-04-19] MEDS: PARoxetine 20MG TABLET PO SCH (09:33)
[2021-04-19] MEDS: SIMVASTATIN 40 MG TAB PO SCH (09:33)
[2021-04-19] MEDS: ENALAPRIL MALEATE 10 MG TAB PO SCH (09:34)
[2021-04-20] MEDS: ACETAMINOPHEN 650MG ER TAB (TYLENOL ARTHRITIS) PO SCH ×3 (05:20→21:38)
[2021-04-20] MEDS: LEVOTHYROXINE 75MCG TABLET (0.075MG) PO SCH (05:20)
[2021-04-20 06:00] VITALS: BP 108/62
[2021-04-20] MEDS: ENOXAPARIN 40MG/0.4ML SYRINGE (J1650 PER 10MG) SC SCH (09:00)
[2021-04-20] MEDS: ENALAPRIL MALEATE 10 MG TAB PO SCH (09:00)
[2021-04-20] MEDS: ASPIRIN 81MG ENTERIC TABLET PO SCH (10:21)
[2021-04-20] MEDS: OMEPRAZOLE 20MG CAP PO SCH (10:21)
[2021-04-20] MEDS: FUROSEMIDE 40 MG TAB PO SCH (10:21)
[2021-04-20] MEDS: PARoxetine 20MG TABLET PO SCH (10:22)
[2021-04-20] MEDS: VANICREAM MOISTURIZING SKIN CREAM 113GM TUBE TOP SCH ×2 (10:24→21:39)
[2021-04-20] MEDS: SIMVASTATIN 40 MG TAB PO SCH (10:27)
[2021-04-21 06:00] VITALS: BP 135/81
[2021-04-21] MEDS: ACETAMINOPHEN 650MG ER TAB (TYLENOL ARTHRITIS) PO SCH ×3 (06:01→20:46)
[2021-04-21] MEDS: LEVOTHYROXINE 75MCG TABLET (0.075MG) PO SCH (06:01)
[2021-04-21] MEDS: ENALAPRIL MALEATE 10 MG TAB PO SCH (09:00)
[2021-04-21] MEDS: ASPIRIN 81MG ENTERIC TABLET PO SCH (09:44)
[2021-04-21] MEDS: FUROSEMIDE 40 MG TAB PO SCH (09:44)
[2021-04-21] MEDS: OMEPRAZOLE 20MG CAP PO SCH (09:44)
[2021-04-21] MEDS: PARoxetine 20MG TABLET PO SCH (09:44)
[2021-04-21] MEDS: SIMVASTATIN 40 MG TAB PO SCH (09:44)
[2021-04-21] MEDS: ENOXAPARIN 40MG/0.4ML SYRINGE (J1650 PER 10MG) SC SCH (09:45)
[2021-04-21] MEDS: VANICREAM MOISTURIZING SKIN CREAM 113GM TUBE TOP SCH ×2 (09:45→20:45)
[2021-04-21] MEDS ORDERED: LASI40TA9 PO (17:59)
[2021-04-21] MEDS ORDERED: DOCUSATE SODIUM 100MG CAPSULE PO PRN (19:55)
[2021-04-21] MEDS ORDERED: MIRALAX *UNIT DOSE* 17GM PACKET PO PRN (19:55)
[2021-04-21] MEDS ORDERED: MOM 30ML SUSPENSION UDC PO PRN (19:55)
[2021-04-22 05:43] VITALS: BP 117/69
[2021-04-22] MEDS: LEVOTHYROXINE 75MCG TABLET (0.075MG) PO SCH (05:53)
[2021-04-22] MEDS: ACETAMINOPHEN 650MG ER TAB (TYLENOL ARTHRITIS) PO SCH (05:53)
[2021-04-22] MEDS: ASPIRIN 81MG ENTERIC TABLET PO SCH (08:47)
[2021-04-22] MEDS: OMEPRAZOLE 20MG CAP PO SCH (08:47)
[2021-04-22] MEDS: ENOXAPARIN 40MG/0.4ML SYRINGE (J1650 PER 10MG) SC SCH (08:48)
[2021-04-22] MEDS: SIMVASTATIN 40 MG TAB PO SCH (08:48)
[2021-04-22] MEDS: PARoxetine 20MG TABLET PO SCH (08:48)
[2021-04-22] MEDS: FUROSEMIDE 40 MG TAB PO SCH (08:48)
[2021-04-22] MEDS: VANICREAM MOISTURIZING SKIN CREAM 113GM TUBE TOP SCH (08:48)
[2021-04-22 08:51] VITALS: BP 126/77
[2021-04-22] MEDS: ENALAPRIL MALEATE 10 MG TAB PO SCH (08:51)
== END 2021-04-22 11:09 | DRG 884 ==
LOC: M ED 09:29 → M ED INP 15:40 → M MSPAV 03-17 04:40 → OBSVTOIN 03-17 15:39
PROVIDERS: ADMIT Internal Medicine; ATTEND General Practice
DX: F03.90 Unspecified dementia, unspecified severity, without behavioral disturbance, psychotic disturbance, mood disturbance, and anxiety (principal); I50.32 Chronic diastolic (congestive) heart failure; E03.9 Hypothyroidism, unspecified; K21.9 Gastro-esophageal reflux disease without esophagitis; F17.200 Nicotine dependence, unspecified, uncomplicated; M19.90 Unspecified osteoarthritis, unspecified site; E78.5 Hyperlipidemia, unspecified; F41.0 Panic disorder [episodic paroxysmal anxiety]; K58.9 Irritable bowel syndrome, unspecified; I11.0 Hypertensive heart disease with heart failure; Z85.840 Personal history of malignant neoplasm of eye; J42 Unspecified chronic bronchitis; N32.81 Overactive bladder; Z79.82 Long term (current) use of aspirin; Z79.899 Other long term (current) drug therapy; Z88.5 Allergy status to narcotic agent; Z88.8 Allergy status to other drugs, medicaments and biological substances; Z66 Do not resuscitate; F32.A Depression, unspecified